=== PATIENT | male | born 1975 | race Caucasian/White ===

== ENCOUNTER 2018-05-31 14:14 | Emergency (ER) | payer MEDICARE, MEDICAID, SELFPAY ==
[2018-05-31] VITALS (11 sets, daily range): BP systolic 128–140; BP diastolic 83–98; PULSE 80–103; RESP 9–20; TEMP 36.5–36.7; O2SAT 98
--- NOTE | 2018-05-31 14:37 | DI.RPTCT_ITS ---
SYMPTOMS/DIAGNOSIS: DIZZINESS, SHORTNESS OF BREATH, H/O DVT AND PE CT SCAN OF THE CHEST: CT angiography was performed with multi slice acquisition and multi planar and 3D reconstruction. CT scan of the chest was performed according to the pulmonary embolus protocol. The comparison is 09/19/17. There is no evidence of a pulmonary embolus. The thoracic aorta is intact. No aneurysm or dilatation is seen. The heart size is within normal limits. No significant pericardial effusion is seen. No findings to suggest a right ventricular dysfunction are present. The lungs are clear. No pleural effusion or pneumothorax is identified. Note is made of fatty infiltration of the liver. Mild degenerative changes are seen in the spine. IMPRESSION: No acute abnormality. No findings to suggest an acute pulmonary embolus or thoracic aortic dissection or aneurysm. The findings were discussed with Thong Loya of the Emergency Department on the date of the examination.
[2018-05-31 14:58] LABS: BE (Venous) 2.4 mmol/L (-3-3); HCO3 (Venous) 28 mmol/L (22-28); O2 Sat (Venous) 96 % (70-80); TCO2 (Venous) 25 mmol/L (22-29); pCO2 (Venous) 48 mm/Hg (34-47); pH (Venous) 7.37 (7.32-7.43); pO2 (Venous) 77 mm/Hg (28-44)
[2018-05-31 15:01] LABS: Abs Immature Grans 0.01 k/cumm (0.0-0.09); Absolute Basophil Count 0.05 k/cumm (0.0-0.2); Absolute Eosinophil Count 0.14 k/cumm (0.0-0.7); Absolute Lymphocyte Count 1.93 k/cumm (1.2-3.4); Absolute Monocyte Count 0.54 k/cumm (0.11-0.7); Absolute Neutrophil Count 4.89 k/cumm (1.2-6.7); Basophils % 0.7; Eosinophils % 1.9; HGB 14.8 g/dL (13.5-17.5); Immature Grans % 0.1; Lymphocytes % 25.5; Mean Corp. HGB Concentration 34.4 g/dL (32.0-36.0); Mean Corpuscular Hemoglobin 29.4 pg (27.0-33.0); Mean Corpuscular Volume 85.3 fL (80-95); Mean Platelet Volume 10.5 fL (8.0-11.0); Monocytes % 7.1; Neutrophils % 64.7; Platelet Count 133 x1000/uL (130-400); RBC 5.04 m/cumm (4.50-6.00); RBC Distribution Width 12.9 % (11.8-14.1); White Blood Cell Count 7.56 k/cumm (4.4-10.8)
--- NOTE | 2018-05-31 15:12 | ED.GENADUL_ITS ---
Disposition Clinical Impression: DVT, recurrent, lower extremity, acute, Diabetes mellitus, Hyperglycemia Disposition: HOME Condition: Improving Instructions: Diabetic Hyperglycemia (ED), Deep Venous Thrombosis (ED) Additional Instructions: Return immediately to the emergency department for any new or worsening symptoms. These would include fever chills, severe shortness of breath difficulty breathing, chest pain, neurological changes, vision loss. Otherwise follow-up with your primary care provider next week, call their office first thing Sunday morning for arrangement of follow-up appointment. Also contact [facility] on Sunday for arrangement of outpatient vision testing for full dilated eye exam. Prescriptions: Apixaban [Eliquis] 10 mg PO BID 30 Days #74 tab Referrals: [facility] [Outside] - 1 week (Please call the office on Sunday for arrangement of outpatient vision testing) Uzma Campbell MD [Primary Care Provider] - 3 days (Call the office on Sunday for arrangement of follow-up appointment) Medical Decision Making - Lab Data Laboratory Tests 05/31/18 05/31/18 14:43 14:43 WBC 7.56 RBC 5.04 Hgb 14.8 Hct 43.0 MCV 85.3 MCH 29.4 MCHC 34.4 RDW 12.9 Plt Count 133 MPV 10.5 Immature Gran % 0.1 Neutrophils % 64.7 Lymphocytes % 25.5 Monocytes % 7.1 Eosinophils % 1.9 Basophils % 0.7 Absolute Neutrophils 4.89 Absolute Lymphocytes 1.93 Absolute Monocytes 0.54 Absolute Eosinophils 0.14 Absolute Basophils 0.05 VBG pH 7.37 VBG pCO2 48 H VBG pO2 77 H VBG HCO3 28 VBG Total CO2 25 VBG O2 Saturation 96 H VBG Base Excess 2.4 Results reviewed for labs ordered during visit: Yes - Radiology Data Radiology results: report reviewed - Medical Decision Making Patient presenting to the emergency department with chief complaint of dizziness and blurry vision. Patient states that he gets this way when his sugars are high. Patient states that he has been off of his medication for approximately the last month and has not been taking any of his diabetes medications because I feel worse when I take them and he also states that he has not been taking his Eliquis. Patient also complains of some shortness of breath with ambulation and right thigh pain and left calf pain. Physical exam is unremarkable but given patient's significant risk I do feel that labs and ultrasound imaging of lower extremities along with PE studies of the chest is warranted given his complaints and being off of his medications. Pending results patient was ordered 1 L IV fluids. Initial fingerstick was 425. After review of results patient is non-acidotic with glucose of 389 on labs no leukocytosis, no elevated troponin, A1c of 11.6, PE study negative for PE and clear lungs and DVT study shows bilateral DVTs. Given patient's noncompliance patient was agreeable to being admitted if necessary but would prefer to go home. I did consult with the hospitalist Dr. Fuller and he stated that given patient's situation he would recommend outpatient therapy with Eliquis to which is what patient was on previously and have patient return for any new or worsening symptoms. Patient does state that he would prefer to go home and not stay in the hospital. Given hospitalist recommendation on outpatient therapy I feel that this is appropriate. Given the patient has no ketones in urine A1c showing that his sugars typically run high and a repeat fingerstick of 313 with not even completion of IV fluids I feel that glucose should not be fully addressed at this point because patient is noncompliant and that this should be addressed on a primary care follow-up and slowly restarted on his medications given the patient was on insulin and metformin but has been off of them for a while as evidenced by A1c. Patient states his biggest barrier and why he quit his medications was because he felt his healthcare provider truly did not care about him and was not doing a appropriate job so he just stopped taking his medications. Clearly discussed with patient the significant risk of being noncompliant with his medical history. Outpatient plan to include restarting his Eliquis to immediately and for patient to receive remainder of IV fluids. Care management was contacted to help arrange outpatient appointment with a new primary care provider and a full dilated eye exam given patient's blurry vision but no ocular abnormalities noted on basic fundoscopy which is very limited. Patient encouraged to return for new or worsening symptoms which she seems reliable to do this. After discussion of diagnosis and plan of care with patient patient agreed and stated no further needs, questions, or concerns at this time. History of Present Illness - General Chief complaint: Dizzy/Sync Stated complaint: DIZZINESS Time Seen by Provider: 05/31/18 14:17 Source: patient, RN notes reviewed, old records reviewed Mode of arrival: ambulatory Limitations: no limitations - History of Present Illness Initial comments: Patient reports for the last 3 days he has had dizziness and slight blurry vision. He states that he has not been taking his diabetes medication or his blood thinner for the past 3-4 weeks. He states that this is how he feels when his sugar gets high but has not checked his sugar recently. He does state significant dry mouth and elevated thirst with frequency of urination. Patient denies any fever chills, chest pain, syncope but does state some shortness of breath on ambulation. Onset/Timin -: days(s) Location: lower extremity (right thigh, ) Severity scale (1-10): 5 Quality: aching Consistency: constant (left calf) Improves with: none Worsens with: none Treatments Prior to Arrival: none - Related Data Methadone Liquid [Dolophine Liquid] 110 mg PO DAILY 06/25/16 Blood Sugar Diagnostic [Test Strips] 1 each MC TID 30 Days #100 strip 09/21/17 IV Access 1 each IV DIRECTED device 09/21/17 Insulin Glargine [Lantus Solostar] 25 units SC HS #3 pen 09/21/17 Lancets 1 each MC TID 30 Days #100 each 09/21/17 Lisinopril 10 mg PO DAILY #30 tab 09/22/17 Metformin HCl 500 mg PO BID@0800,1700 #60 tab 09/22/17 Insulin Aspart [Novolog Flexpen] NS 02/14/18 Insulin Detemir [Levemir Flextouch] 40 u SC HS NS 02/14/18 Apixaban [Eliquis] 10 mg PO BID 30 Days #74 tab 05/31/18 Allergies Allergy/AdvReac Type Severity Reaction Status Date / Time rizatriptan benzoate Allergy Unverified 05/31/18 14:25 [From [facility]] fentanyl AdvReac Mild doesn't Unverified 05/31/18 14:25 like how he feels Review of Systems Constitutional: denies: chills, fever Eyes: vision change (Blurred vision) Respiratory: cough, shortness of breath Cardiovascular: denies: chest pain, palpitations, syncope Endocrine: see HPI, increased thirst, increased urine Gastrointestinal: denies: abdominal pain, nausea, vomiting, diarrhea Genitourinary: denies: dysuria, hematuria Musculoskeletal: as per HPI, myalgia Neurological: headache (Daily migraines with no change in headache type). denies: weakness, numbness, paresthesias, confusion Past Medical History - Past Medical History Medical history: diabetes, DVT, hypertension, PE Migraine ANDREA, chronic back pain, learning disability, steatohepatitis Surgical history: no surgical history - Social History Smoking status: current everyday smoker Alcohol use: none Drug use: prescription drug abuse Living Situation: lives with family General Exam - General Limitations: no limitations General appearance: alert, in no apparent distress - Head Head exam: Present: atraumatic - Eye Eye exam: Present: normal apperance, PERRL, EOMI. Absent: scleral icterus, conjunctival injection, nystagmus Pupils: Present: normal accommodation - ENT ENT exam: Present: mucous membranes dry, TM's normal bilaterally, normal external ear exam - Respiratory Respiratory exam: Present: normal lung sounds bilaterally. Absent: respiratory distress, wheezes, rales, rhonchi - Cardiovascular Cardiovascular Exam: Present: regular rate, normal rhythm, normal heart sounds. Absent: tachycardia, systolic murmur, diastolic murmur, rubs, clicks - GI/Abdominal GI/Abdominal exam: Present: soft, hypoactive bowel sounds, hernia (ventral easily reducible). Absent: tenderness, guarding, rebound, organomegaly, mass, bruit, pulsatile mass - Extremities Exam Extremities exam: Present: full ROM, normal capillary refill - Back Exam Back exam: Absent: CVA tenderness (R), CVA tenderness (L) - Neurological Exam Neurological exam: Present: alert, oriented X3, normal gait. Absent: altered - Skin Skin exam: Present: warm, dry, normal color. Absent: cyanosis, diaphoretic, pallor, mottled Course Vital Signs - 24 hr 05/31/18 05/31/18 14:19 14:50 Temperature 36.7 C Pulse 103 H Respiratory 18 18 Rate Blood Pressure 131/98 Pulse Oximetry 98
[2018-05-31 15:14] LABS: PTT Activated 25.2 sec (21.0-31.4); Prothrombin Time 9.5 sec (9.3-10.8)
[2018-05-31 15:17] LABS: ALT 143 U/L (12-78); AST 57 U/L (15-37); Albumin 3.4 g/dL (3.4-5.0); Alkaline Phosphatase 119 U/L (46-116); Anion Gap 10.1 mmol/L (3-11); BUN 15 mg/dL (7-18); Bilirubin, Total 0.4 mg/dL (0.2-1.0); CO2 26.9 mmol/L (21.0-32.0); CREATININE 1.01 mg/dL (0.70-1.30); Calcium 8.7 mg/dL (8.5-10.1); Chloride 98 mmol/L (98-107); Glucose 389 mg/dL (70-100); Magnesium 1.6 mg/dL (1.8-2.4); Potassium 4.1 mmol/L (3.5-5.1); Sodium 135 mmol/L (136-145); Total Protein 7.8 g/dL (6.4-8.2)
[2018-05-31 15:28] LABS: Bilirubin Negative (Negative); Blood Negative (Negative); Clarity Clear; Glucose 500 mg/dL (Negative); Ketones Negative (Negative); Leukocyte Esterase Negative (Negative); Nitrite Negative (Negative); Urobilinogen 0.2 EU/dL (Up TO 0.2); pH 5.5 (5-8)
[2018-05-31 15:39] LABS: Epithelial Cells Negative HPF (Negative); RBC Negative (0-2); WBC Negative HPF (0-5)
[2018-05-31 15:40] LABS: Bacteria Negative HPF (Negative); C & S Indicated? No; Crystals Negative HPF (Negative); Mucus Negative (Negative); Other Cells Rare Renal (Negative)
[2018-05-31] MEDS: Omnipaque 350 MG/ML 100 ML BTL IJ (15:46)
--- NOTE | 2018-05-31 15:59 | DI.REPORT_ITS ---
SYMPTOMS/DIAGNOSIS: RT INNER THIGH PAIN, LT CALF PAIN, HX DVT AND PE RIGHT LOWER EXTREMITY ULTRASOUND: The distal femoral vein as well as popliteal vein are partially compressible and show partially occluding thrombus. One of the posterior tibial veins shows thrombus distally. The common femoral vein and saphenous vein are free of thrombus. IMPRESSION: Partially occluding thrombus in the distal femoral vein, popliteal vein and one of the posterior tibial veins. LEFT LOWER EXTREMITY ULTRASOUND: The deep venous system is freely compressible. No thrombus is visible. The doppler venous wave form augments normally. A santana's cyst is seen measuring 3.4 x 1.9 x 1.9 cm. IMPRESSION: Santana's cyst. No evidence of DVT.
[2018-05-31 17:16] LABS: Troponin I < 0.02 ng/mL (0.00-0.06)
[2018-05-31 17:26] LABS: Hemoglobin A1C 11.6 % (4.5-6.2)
[2018-05-31] MEDS: Normal Saline 1,000 ML 1000 ML IV (17:30)
--- NOTE | 2018-05-31 17:33 | DI.VRAD_ITS ---
EXAM: US Duplex Bilateral Lower Extremity Veins CLINICAL HISTORY: 42 years old, male; Pain; Leg, lower; Bilateral TECHNIQUE: Real-time duplex ultrasound scan of the bilateral lower extremity veins integrating B-mode two-dimensional vascular structure, Doppler spectral analysis, color flow Doppler imaging and compression. COMPARISON: No relevant prior studies available. FINDINGS: Right deep veins: Nonoccluding thrombus in the distal right superficial femoral vein. Nonoccluding thrombus in the right popliteal vein. Thrombus in the one of the distal right posterior tibial veins. Right superficial veins: Unremarkable. No thrombus in the visualized right great saphenous vein. Left deep veins: Nonoccluding thrombus in the distal left superficial femoral vein. Left superficial veins: Unremarkable. No thrombus in the visualized left great saphenous vein. Soft tissues: Santana's cyst on the left 1.9 x 1.9 x 3.4 cm IMPRESSION: 1. Nonoccluding thrombus in the distal right superficial femoral vein. 2. Nonoccluding thrombus in the right popliteal vein. 3. Thrombus in the one of the distal right posterior tibial veins. 4. Nonoccluding thrombus in the distal left superficial femoral vein. Dictated and Authenticated by: Aga Summers MD. Ordering:JORDON AGUILAR MD
[2018-05-31] MEDS: Apixaban 5 MG TAB 10 MG PO (17:58)
--- NOTE | 2018-05-31 18:47 | PDOC.ERCMPRO ---
Care Management Progress Note 05/31/18- Pt seen today for Dizziness and blurred vision by Pj Oden NP.Pt has poor control od diabetes and has stopped taking his meds to control it. Also, has DVT's in lower extremities. Pt states he will see any at his PCP[facility], [facility] except for NADINE King. Request for a f/u by Sunday or Sunday faxed and a f/u with [facility] within a week faxed, as well.
--- NOTE | 2018-05-31 18:56 | CMPROGNOTE_ITS ---
Care Management Progress Note 05/31/18- Pt seen today for Dizziness and blurred vision by Pj Oden NP.Pt has poor control od diabetes and has stopped taking his meds to control it. Also, has DVT's in lower extremities. Pt states he will see any at his PCP's, [facility] except for NADINE King. Request for a f/u by Sunday or Sunday faxed and a f/u with [facility] within a week faxed, as well.
== END 2018-05-31 22:35 | disposition home or self-care (01) ==
PROVIDERS: Nurse Practitioner Family; Emergency Provider Physician Assistant; PCP Family Medicine
DX: I82.423 Acute embolism and thrombosis of iliac vein, bilateral (principal); E11.65 Type 2 diabetes mellitus with hyperglycemia; H53.8 Other visual disturbances; R06.02 Shortness of breath; Z91.14 Patient's other noncompliance with medication regimen; Z79.01 Long term (current) use of anticoagulants; Z79.4 Long term (current) use of insulin
CPT/HCPCS: 71275; 93005; 93970; 96360; 96361; 99284; 99285; 36415; 36416; 80053; 82805; 82962; 81003; 81015; 83036; 83735; 84484; 85025; 85610; 85730; 93010; J3490

== ENCOUNTER 2019-02-13 15:27 | Outpatient (REF) | payer MEDICARE, SELFPAY ==
[2019-02-13 21:53] LABS: ALT 100 U/L (12-78); AST 47 U/L (15-37); Albumin 3.9 g/dL (3.4-5.0); Alkaline Phosphatase 114 U/L (46-116); Anion Gap 9.7 mmol/L (3-11); BUN 17 mg/dL (7-18); Bilirubin, Total 0.3 mg/dL (0.2-1.0); CO2 26.3 mmol/L (21.0-32.0); Calcium 9.3 mg/dL (8.5-10.1); Chloride 99 mmol/L (98-107); Glucose 309 mg/dL (70-100); Potassium 4.6 mmol/L (3.5-5.1); Sodium 135 mmol/L (136-145); Total Protein 7.7 g/dL (6.4-8.2)
[2019-02-17 11:12] LABS: Hepatitis C Ab w Rflx HCV PCR Negative (NEGAT)
== END 2019-02-13 15:47 ==
LOC: NCHCN 15:27
PROVIDERS: PCP Family Medicine; Visit Provider Family Medicine
DX: R10.9 Unspecified abdominal pain (principal); R79.89 Other specified abnormal findings of blood chemistry; Z11.59 Encounter for screening for other viral diseases
CPT/HCPCS: 80053; 86803

== ENCOUNTER 2019-03-13 15:30 | Outpatient (REF) | payer MEDICARE, MEDICAID, SELFPAY | END 2019-03-13 15:50 | LOC: NCHCN 15:30 | PROVIDERS: PCP Family Medicine; Visit Provider Family Medicine | DX: L02.92 Furuncle, unspecified (principal) | CPT/HCPCS: 87077; 87070; 87186; 87205 ==

== ENCOUNTER 2019-05-08 12:57 | Outpatient (REF) | payer MEDICARE, MEDICAID, SELFPAY ==
[2019-05-08 21:45] LABS: HGB 15.5 g/dL (13.5-17.5); Mean Corp. HGB Concentration 33.7 g/dL (32.0-36.0); Mean Platelet Volume 11.1 fL (8.0-11.0); Platelet Count 165 x1000/uL (130-400); RBC 5.35 m/cumm (4.50-6.00); White Blood Cell Count 8.72 k/cumm (4.4-10.8)
[2019-05-08 22:16] LABS: ALT 108 U/L (12-78); AST 51 U/L (15-37); Albumin 3.7 g/dL (3.4-5.0); Alkaline Phosphatase 106 U/L (46-116); Anion Gap 10.9 mmol/L (3-11); BUN 17 mg/dL (7-18); Bilirubin, Total 0.4 mg/dL (0.2-1.0); CO2 24.1 mmol/L (21.0-32.0); CREATININE 0.94 mg/dL (0.70-1.30); Calcium 8.9 mg/dL (8.5-10.1); Chloride 100 mmol/L (98-107); Glucose 292 mg/dL (70-100); Potassium 4.7 mmol/L (3.5-5.1); Sodium 135 mmol/L (136-145); TSH (W/Ref FT4) 0.78 uIU/mL (0.358-3.74); Total Protein 7.5 g/dL (6.4-8.2)
[2019-05-08 22:39] LABS: C-Reactive Protein 0.86 mg/dL (0.0-0.3); Creatine Kinase 100 U/L (39-308)
[2019-05-08 23:45] LABS: ESR 16 mm/hr (0-15)
[2019-05-12 11:44] LABS: Lyme Ab w Rflx to Lyme Confirm Negative
== END 2019-05-08 13:17 ==
LOC: NCHCN 12:57
PROVIDERS: PCP Family Medicine; Visit Provider Family Medicine
DX: E11.65 Type 2 diabetes mellitus with hyperglycemia (principal); R53.1 Weakness; R13.10 Dysphagia, unspecified; K59.00 Constipation, unspecified; K76.0 Fatty (change of) liver, not elsewhere classified
CPT/HCPCS: 80053; 82550; 85027; 85652; 84443; 86140; 86618

== ENCOUNTER 2019-05-10 10:10 | Emergency (ER) | payer MEDICARE, MEDICAID, SELFPAY ==
[2019-05-10] VITALS (19 sets, daily range): BP systolic 114–143; BP diastolic 65–90; PULSE 58–96; RESP 9–20; TEMP 36.6–36.7; O2SAT 92–95
--- NOTE | 2019-05-10 10:41 | ED.GENADUL_ITS ---
Discharge Plan Disposition Patient Disposition: HOME Condition: Stable Discharge Details Chief Complaint: SOB Clinical Impression: Chest pain Primary Care Provider: Uzma Campbell V ED Provider: Terrance Simpson Home Meds and New Rx's Prescriptions: No Action metformin 500 MG tablet 500 mg PO BID@0800,1700 Qty: 60 RF: 2 lisinopril 10 MG tablet 10 mg PO DAILY Qty: 30 RF: 2 insulin aspart U-100 [Novolog Flexpen U-100 Insulin] 100 UNIT/1 ML insulin pen RF: 0 insulin detemir U-100 [Levemir FlexTouch U-100 Insuln] 100 UNIT/1 ML insulin pen 40 u Sub-Q HS RF: 0 methadone 10 MG/ML concentrate 110 mg PO DAILY RF: 0 Lantus Solostar U-100 Insulin 300 UNITS/3 ML insulin pen 25 units Sub-Q HS Qty: 3 RF: 3 IV Access 1 EACH Device 1 ea IV DIRECTED RF: 0 (DME) lancets 1 EACH misc 1 ea Miscellaneous TID 30 Days Qty: 100 RF: 3 (DME) blood sugar diagnostic [Blood Glucose Test] 1 EACH strip 1 ea Miscellaneous TID 30 Days Qty: 100 RF: 3 Eliquis 5 MG tablet 10 mg PO BID 30 Days Qty: 74 RF: 0 Discharge Instructions Instructions: Chest Pain (ED) Additional Instructions: Please follow-up with your primary care doctor on Sunday for further evaluation of your chest pain while we did not identify a cardiac cause or pulmonary embolism today you still need further work-up for this pain - in the meantime please take ibuprofen and Tylenol as needed for symptom relief and return to the emergency department immediately for increasing pain, shortness of breath sweating or other concern Medical Decision Making 43-year-old male past medical history of diabetes pulmonary embolus hypertension presents with left-sided chest pain nonischemic EKG troponin negative x2 1 and 3-hour testing and CT angios thorax negative for pulmonary embolus. Patient resting comfortably pain is improved we will discharge patient with primary care follow-up in 48 hours to discuss cardiology referral and stress testing. Patient agrees to return for increasing pain diaphoresis or new concern. ECG: Sinus rhythm 89 normal axis no ectopy normal intervals no STEMI Lab Data Lab results reviewed: Yes I reviewed the patient's lab results. ECG Data Attestation: I personally reviewed and interpreted this ECG (s) as follows: HPI 43-year-old male past medical history of 2 unprovoked pulmonary embolus is chronic back pain on methadone presents with 24 hours of left chest wall pain with shortness of breath not dissimilar from his other pulmonary emboli patient on Eliquis and states compliant no missed pills in the last month. Pain is sharp left chest nonradiating back pain is constant and unchanged long-standing nothing makes the chest pain better or worse no pain with chest palpation no change with inspiration.no fever chills nausea vomiting loss of consciousness or trauma. General Date/Time Provider Initiated Documentation: 05/10/19 10:15 . Related Data Home Medications Medication Instructions Recorded Confirmed methadone 110 mg PO DAILY 06/25/16 05/10/19 IV Access 1 ea IV DIRECTED device 09/21/17 Lantus Solostar U-100 Insulin 25 units SUB-Q HS #3 pen 09/21/17 blood sugar diagnostic [Blood #100 strip 09/21/17 Glucose Test] lancets #100 ea 09/21/17 lisinopril 10 mg PO DAILY #30 tab 09/22/17 05/10/19 metformin 500 mg PO BID@0800,1700 #60 tab 09/22/17 05/10/19 insulin aspart U-100 [Novolog NS 02/14/18 Flexpen] insulin detemir U-100 [Levemir 40 u SUB-Q HS NS 02/14/18 Flextouch] Eliquis 10 mg PO BID 30 Days #74 tab 05/31/18 05/10/19 Previous Rx's Medication Instructions Recorded IV Access 1 ea IV DIRECTED device 09/21/17 Lantus Solostar U-100 Insulin 25 units SUB-Q HS #3 pen 09/21/17 blood sugar diagnostic [Blood #100 strip 09/21/17 Glucose Test] lancets #100 ea 09/21/17 lisinopril 10 mg PO DAILY #30 tab 09/22/17 metformin 500 mg PO BID@0800,1700 #60 tab 09/22/17 Eliquis 10 mg PO BID 30 Days #74 tab 05/31/18 Allergies Allergy/AdvReac Type Severity Reaction Status Date / Time rizatriptan benzoate Allergy Unverified 05/10/19 10:18 [From [facility]] fentanyl AdvReac Mild doesn't Unverified 05/10/19 10:18 like how he feels General Stated Complaint: SOB ANA PAULA: 2 Review of Systems Review of Systems All systems reviewed & are unremarkable except as noted in HPI and below [facility] Medical History (Updated 09/20/17 @ 15:58 by Jn Pisano) Chronic back pain Chronic headaches Chronic neck pain Diastasis recti DM (diabetes mellitus), type 2, uncontrolled DVT (deep venous thrombosis) Episodic drug abuse Hyperlipidemia Hypertension Learning disability Left inguinal hernia Nonalcoholic fatty liver disease Pulmonary embolism on right Social History Smoking/Tobacco Use Status: Current every day Alcohol Intake: former Drug use: Occasionally Substance use type: marijuana Do you feel safe in your relationship?: Yes Exam Narrative Exam Narrative: Pulse oximetry reviewed by me and is normal: Constitutional: in no acute distress. well appearing. oriented to person, place, and time. Eyes: conjunctivae are normal. Pupils are equal, round, and reactive to light. No scleral icterus. extraocular muscles are intact Ears/Nose/Mouth/Throat: muscousal membranes are moist. Musculoskeletal: neck is supple. normal range of motion in all extremities. No lower extremity edema Cardiovascular: Normal rate and rhythm. No lower extremity edema regular rate and rhythm Respiratory: effort is normal. no stridor or respiratory distress lungs clear to auscultation. GastrointestinaI: abdomen soft, +BS, nontender, -rebound, -guarding. Neurological: alert and oriented to person, place, and time. normal strength, no tremor. Skin: Skin is warm and dry. not diaphoretic. Distal perfusion intact, warm extremities, cap refill < 2 seconds. Hem/Lymph/Imm: No cervical LAD, no goiter, no conjunctival pallor Psych: normal mood and affect. behavior is normal Triage and nurse notes reviewed. Course Vital Signs Temperature 36.6 C 05/10/19 10:14 Pulse 96 H 05/10/19 10:14 Respiratory Rate 05/10/19 10:14 Blood Pressure 118/65 05/10/19 10:14 Pulse Oximetry 93 L 05/10/19 10:14 Temperature 36.6 C 05/10/19 10:14 Temperature Source Skin 05/10/19 10:14 Pulse 96 H 05/10/19 10:14 Respiratory Rate 05/10/19 10:14 Blood Pressure 118/65 05/10/19 10:14 Blood Pressure Position Sitting 05/10/19 10:14 Pulse Oximetry 93 L 05/10/19 10:14 Oxygen Delivery Method Room Air 05/10/19 10:14 Oxygen Flow Rate 0 05/10/19 10:14 Pain Level 4 05/10/19 10:14
[2019-05-10] MEDS: Omnipaque 350 MG/ML 100 ML BTL IJ (11:06)
--- NOTE | 2019-05-10 11:08 | DI.CT_ITS ---
SYMPTOM/DIAGNOSIS: SOB CT ANGIOGRAPHY CHEST: CT angiography was performed with multi slice acquisition and multi planar and 3D reconstruction. Routine examination. Comparison 06/25/16 There is no evidence of a pulmonary embolus. The thoracic aorta is normal caliber. No aneurysm or dissection is seen. Heart size is within normal limits. No significant pericardial effusion seen. No evidence of right ventricular dysfunction is present. No evidence of thoracic adenopathy, pleural effusion of pneumothorax is identified. No pulmonary infiltrates are seen. There are stable pulmonary nodules again noted. The tracheobronchial tree is unremarkable. Upper abdominal images show hepatic steatosis. No acute osseous abnormalities identified. IMPRESSION: No evidence of an acute pulmonary embolus, thoracic aortic dissection or aneurysm.
[2019-05-10 11:12] LABS: Abs Immature Grans 0.02 k/cumm (0.0-0.09); Absolute Basophil Count 0.03 k/cumm (0.0-0.2); Absolute Eosinophil Count 0.14 k/cumm (0.0-0.7); Absolute Lymphocyte Count 1.95 k/cumm (1.2-3.4); Absolute Monocyte Count 0.49 k/cumm (0.11-0.7); Absolute Neutrophil Count 3.36 k/cumm (1.2-6.7); Basophils % 0.5; Eosinophils % 2.3; HCT 43.6 % (40.0-50.0); HGB 14.7 g/dL (13.5-17.5); Immature Grans % 0.3; Lymphocytes % 32.6; Mean Corp. HGB Concentration 33.7 g/dL (32.0-36.0); Mean Corpuscular Hemoglobin 29.3 pg (27.0-33.0); Mean Platelet Volume 10.9 fL (8.0-11.0); Monocytes % 8.2; Neutrophils % 56.1; Platelet Count 135 x1000/uL (130-400); RBC 5.01 m/cumm (4.50-6.00); RBC Distribution Width 13.3 % (11.8-14.1); White Blood Cell Count 5.99 k/cumm (4.4-10.8)
[2019-05-10 11:28] LABS: ALT 96 U/L (12-78); AST 28 U/L (15-37); Albumin 3.4 g/dL (3.4-5.0); Alkaline Phosphatase 95 U/L (46-116); Anion Gap 8.4 mmol/L (3-11); BUN 20 mg/dL (7-18); Bilirubin, Total 0.3 mg/dL (0.2-1.0); CO2 25.6 mmol/L (21.0-32.0); CREATININE 0.96 mg/dL (0.70-1.30); Calcium 9.1 mg/dL (8.5-10.1); Chloride 101 mmol/L (98-107); Glucose 389 mg/dL (70-100); Magnesium 1.8 mg/dL (1.8-2.4); Potassium 4.6 mmol/L (3.5-5.1); Sodium 135 mmol/L (136-145); Total Protein 7.3 g/dL (6.4-8.2)
[2019-05-10 11:29] LABS: Troponin I < 0.05 ng/mL (0.00-0.06)
[2019-05-10 11:44] LABS: PTT Activated 25.5 sec (21.0-31.4); Prothrombin Time 9.9 sec (9.3-11.0)
--- NOTE | 2019-05-10 12:04 | DI.VRAD_ITS ---
EXAM: CT Angiography Chest With Contrast EXAM DATE/TIME: 05/10/2019 10:42 AM CLINICAL HISTORY: 43 years old, male; Shortness of breath; Patient HX: SOB and increased chest pain yesterday, HX of pe, and blood clots in left leg, last one was 2 years ago. TECHNIQUE: Imaging protocol: Axial computed tomographic angiography images of the chest with intravenous contrast using CT angiography protocol. Coronal and sagittal reformatted images were created and reviewed. 3D rendering: MIP reconstructed images were created and reviewed. Radiation optimization: All CT scans at this facility use at least one of these dose optimization techniques: automated exposure control; mA and/or kV adjustment per patient size (includes targeted exams where dose is matched to clinical indication); or iterative reconstruction. Contrast material: OMNIPAQUE 350; Contrast volume: 100 ml; Contrast route: IV; COMPARISON: CT CHEST FOR PULMONARY EMBOLUS 07/29/2018 15:31 FINDINGS: Pulmonary arteries: There is no evidence for pulmonary embolus. There is no evidence for pulmonary embolus. Aorta: Unremarkable. No aortic aneurysm. No aortic dissection. Lungs: Again noted numerous noncalcified 2-3 mm lung nodules. Pleural space: Unremarkable. No pneumothorax. No pleural effusion. Heart: Unremarkable. No cardiomegaly. No pericardial effusion. Liver: Hepatic steatosis. Lymph nodes: Unremarkable. No enlarged lymph nodes. Bones/joints: Unremarkable. No acute fracture. Soft tissues: Unremarkable. IMPRESSION: No evidence for pulmonary embolus. Dictated and Authenticated by: Natacha Cannon MD. Ordering:SOTERO Carlos MD
[2019-05-10 14:17] LABS: Troponin I < 0.05 ng/mL (0.00-0.06)
== END 2019-05-10 15:01 | disposition home or self-care (01) ==
PROVIDERS: Emergency Provider Emergency Medicine; PCP Family Medicine
DX: R07.9 Chest pain, unspecified (principal); I26.99 Other pulmonary embolism without acute cor pulmonale; Z79.01 Long term (current) use of anticoagulants; I10 Essential (primary) hypertension; E11.9 Type 2 diabetes mellitus without complications; Z79.4 Long term (current) use of insulin
CPT/HCPCS: 36415; 71275; 80053; 93005; 99285; 83735; 84484; 85025; 85610; 85730; 93010; J3490

== ENCOUNTER 2019-05-21 00:51 | Outpatient (CLI) | payer MEDICARE, MEDICAID, SELFPAY ==
--- NOTE | 2019-05-21 09:37 | DI.RAD_ITS ---
SYMPTOMS/DIAGNOSIS: DYSPHAGIA, R13.10, UNABLE TO DO BARIUM SWALLOW DUE TO VOMITING PA AND LATERAL CHEST: The heart is normal in size. The lungs are clear. The mediastinal structures and pleura appear intact. IMPRESSION: Normal chest. SOFT TISSUE LATERAL OF THE NECK: No soft tissue abnormality is seen. Note is made of disc narrowing and degenerative bony changes at multiple levels. The patient vomited after imbibing barium and the study was discontinued. This patient could be rescheduled when clinically appropriate.
== END 2019-05-21 01:11 ==
PROVIDERS: PCP Family Medicine; Visit Provider Family Medicine
DX: R13.10 Dysphagia, unspecified (principal); R11.10 Vomiting, unspecified
CPT/HCPCS: 70360; 71046

== ENCOUNTER 2019-06-25 00:37 | Outpatient (CLI) | payer MEDICARE, MEDICAID, SELFPAY ==
--- NOTE | 2019-06-25 09:20 | DI.MRI_ITS ---
SYMPTOMS/DIAGNOSIS: CHRONIC BACK PAIN, M54.89 MRI OF THE LUMBAR SPINE: There is partial sacralization of L5. There is moderate loss of disc height at T1-12 and some posterior disc bulging, but no significant central canal stenosis or neural foraminal narrowing. The L1-2 and L2-3 levels are unremarkable. At L3-4, there is moderate disc bulging, which is slightly eccentric toward the left. There are mild facet degenerative changes and mild ligamentous hypertrophy causing mild central canal stenosis. There is also bilateral neural foraminal narrowing. At L4-5, there is moderate to severe loss of disc height as well as broad-based disc bulging and endplate osteophytes. There are facet degenerative changes, which combine with the disc bulging to create mild central canal stenosis and mild left and moderate right neural foraminal narrowing. The L5-S1 level is unremarkable. A hemangioma is seen in the S1 vertebral body. The conus medullaris appears intact. The aorta is normal in diameter. IMPRESSION: Degenerative disc changes greatest at L3-4 and L4-5 causing mild central canal stenosis and neural foraminal narrowing.
== END 2019-06-25 00:57 ==
PROVIDERS: PCP Family Medicine; Visit Provider Family Medicine
DX: M54.5 Low back pain (principal); G89.29 Other chronic pain; M51.36 Other intervertebral disc degeneration, lumbar region; M48.061 Spinal stenosis, lumbar region without neurogenic claudication
CPT/HCPCS: 72148

== ENCOUNTER 2019-06-26 10:15 | Outpatient (REF) | payer MEDICARE, SELFPAY ==
[2019-06-26 19:55] LABS: ALT 76 U/L (16-63); AST 27 U/L (15-37); Albumin 3.8 g/dL (3.4-5.0); Alkaline Phosphatase 90 U/L (46-116); Anion Gap 9.8 mmol/L (3-11); BUN 18 mg/dL (7-18); Bilirubin, Total 0.3 mg/dL (0.2-1.0); C-Reactive Protein 0.92 mg/dL (0.0-0.3); CO2 27.2 mmol/L (21.0-32.0); CREATININE 0.97 mg/dL (0.70-1.30); Calcium 9.1 mg/dL (8.5-10.1); Chloride 100 mmol/L (98-107); Creatine Kinase 90 U/L (39-308); Glucose 394 mg/dL (70-100); Potassium 4.7 mmol/L (3.5-5.1); Sodium 137 mmol/L (136-145); Total Protein 7.6 g/dL (6.4-8.2)
[2019-06-26 20:05] LABS: ESR 16 mm/hr (0-15)
== END 2019-06-26 10:35 ==
LOC: NCHCN 10:15
PROVIDERS: PCP Family Medicine; Visit Provider Family Medicine
DX: R07.89 Other chest pain (principal); R79.89 Other specified abnormal findings of blood chemistry; I10 Essential (primary) hypertension
CPT/HCPCS: 80053; 82550; 85652; 86140

== ENCOUNTER → 2020-02-27 13:32 | Outpatient (BNVA) | payer MEDICARE, MEDICAID, SELFPAY | PROVIDERS: PCP Family Medicine; Referring Provider Family Medicine; Visit Provider Surgery | DX: R10.33 Periumbilical pain (principal); E11.8 Type 2 diabetes mellitus with unspecified complications; I10 Essential (primary) hypertension | CPT/HCPCS: 99202; 99214 ==

== ENCOUNTER 2021-01-28 16:36 | Outpatient (REF) | payer MEDICARE, SELFPAY ==
[2021-01-28 15:09] LABS: HCT 42.6 % (40.0-50.0); HGB 14.5 g/dL (13.5-17.5); MCH 29.2 pg (27.0-33.0); MCV 85.9 fL (80-95); MPV 10.7 fL (8.0-11.0); Platelet Count 187 10^3/uL (130-400); RBC 4.96 10^6/uL (4.36-5.78); RDW 12.6 % (11.8-14.1); RDW-SD 39.5 fL; WBC 10.82 10^3/uL (4.4-10.8)
[2021-01-28 15:33] LABS: ALT 36 U/L (16-63); AST 15 U/L (15-37); Albumin 3.6 g/dL (3.4-5.0); Alkaline Phosphatase 82 U/L (46-116); Anion Gap 10.1 mmol/L (3-11); BUN 20 mg/dL (7-18); Bilirubin, Total 0.4 mg/dL (0.2-1.0); CO2 25.9 mmol/L (21.0-32.0); Calculated LDL 101 mg/dL (<100); Chloride 101 mmol/L (98-107); Cholesterol 155 mg/dL (<200); Glucose 214 mg/dL (74-106); HDL Cholesterol 36 mg/dL (40-60); Potassium 4.3 mmol/L (3.5-5.1); Sodium 137 mmol/L (136-145); Total Protein 7.2 g/dL (6.4-8.2); Triglyceride 92 mg/dL (<150)
[2021-01-31 16:21] LABS: HLA-B27 Result Negative
== END 2021-01-28 16:37 | disposition home or self-care (01) ==
LOC: NCHCN 16:36
PROVIDERS: PCP Family Medicine; Visit Provider Family Medicine
DX: I10 Essential (primary) hypertension (principal); E78.5 Hyperlipidemia, unspecified; E11.65 Type 2 diabetes mellitus with hyperglycemia; K76.0 Fatty (change of) liver, not elsewhere classified; M54.2 Cervicalgia; M54.89 Other dorsalgia
CPT/HCPCS: 80053; 80061; 85027; 86812

== ENCOUNTER 2022-02-27 23:02 | Emergency (ER) | payer MEDICARE, MEDICAID, SELFPAY ==
[2022-02-27] VITALS (28 sets, daily range): BP systolic 175–186; BP diastolic 98–111; PULSE 115–130; RESP 9–22; TEMP 37; O2SAT 96–99
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
[2022-02-27] MEDS: Lidocaine/Epinephri/Tetracaine Topical Gel 3 ML TP (23:30)
[2022-02-27] MEDS: Lidocaine/Epinephri/Tetracaine Topical Gel 3 ML (23:30)
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
[2022-02-27 23:33] LABS: Abs Immature Grans 0.09 10^3/uL (0.0-0.06); Absolute Eosinophil Count 0.03 10^3/uL (0.0-0.7); Absolute Lymphocyte Count 1.41 10^3/uL (1.2-3.4); Basophils % 0.6; Eosinophils % 0.2; HCT 41.1 % (40.0-50.0); HGB 13.5 g/dL (13.5-17.5); Immature Grans % 0.5; Lymphocytes % 8.3; MCH 29.3 pg (27.0-33.0); MCHC 32.8 % (32.0-36.0); MCV 89 fL (80-95); MPV 10.2 fL (8.0-11.0); Monocytes % 5.8; Neutrophils % 84.6; Platelet Count 201 10^3/uL (130-400); RBC 4.61 10^6/uL (4.36-5.78); RDW 13.5 % (11.8-14.1); RDW-SD 44.1 fL; WBC 16.94 10^3/uL (4.4-10.8)
[2022-02-27 23:34] LABS: Absolute Monocyte Count 0.98 10^3/uL (0.1-0.8); Absolute Neutrophil Count 14.33 10^3/uL (1.2-6.7)
[2022-02-27] MEDS: Ondansetron 4 MG/2 ML VIAL IVP (23:39)
[2022-02-27] MEDS: MORPHine 4 MG/ML SYR IVP (23:39)
[2022-02-27] MEDS: Normal Saline 1,000 ML 1000 ML IV (23:39)
[2022-02-27 23:45] LABS: ALT 43 U/L (16-63); AST 25 U/L (15-37); Albumin 4.2 g/dL (3.4-5.0); Alkaline Phosphatase 85 U/L (46-116); Anion Gap 8.7 mmol/L (3-11); BUN 24 mg/dL (7-18); Bilirubin, Total 0.3 mg/dL (0.2-1.0); CO2 25.3 mmol/L (21.0-32.0); CREATININE 1.1 mg/dL (0.70-1.30); Calcium 9.4 mg/dL (8.5-10.1); Chloride 104 mmol/L (98-107); Glucose 246 mg/dL (74-106); Potassium 4.2 mmol/L (3.5-5.1); Sodium 138 mmol/L (136-145)
[2022-02-27 23:47] LABS: PTT Activated 23.2 sec (21.0-27.5); Prothrombin Time 10.5 sec (9.3-11.0)
[2022-02-28] VITALS (42 sets, daily range): BP systolic 177–194; BP diastolic 88–97; PULSE 104–111; RESP 8–28; O2SAT 97–99
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
[2022-02-28] MEDS: Ketorolac 15 MG/ML VIAL IVP (01:03)
[2022-02-28] MEDS: oxyCODONE 5 mg/Acetaminophen 325 mg TAB 1 TAB PO (01:03)
--- NOTE | 2022-02-28 09:02 | NUR.NOTE ---
Nursing Note: Faxed to [facility] the provider note. The CT's are being sent electronically. Daina Blackburn
== END 2022-02-28 02:08 | disposition home or self-care (01) ==
PROVIDERS: Emergency Provider Emergency Medicine; PCP Family Medicine
DX: S02.31XA Fracture of orbital floor, right side, initial encounter for closed fracture (principal); S02.831A Fracture of medial orbital wall, right side, initial encounter for closed fracture; S02.40EA Zygomatic fracture, right side, initial encounter for closed fracture; S02.40CA Maxillary fracture, right side, initial encounter for closed fracture; S01.81XA Laceration without foreign body of other part of head, initial encounter; S01.311A Laceration without foreign body of right ear, initial encounter; R07.89 Other chest pain; Y00.XXXA Assault by blunt object, initial encounter; M54.6 Pain in thoracic spine
CPT/HCPCS: 12013; 36415; 71250; 80053; 90471; 96361; 96374; 96375; 99285; 70450; 70486; 72125; 85025; 85610; 85730; J1885; J2270; J2405

== ENCOUNTER 2022-02-28 10:47 | Emergency (ER) | payer MEDICARE, MEDICAID, SELFPAY ==
[2022-02-28 10:55] VITALS: BP 169/89; PULSE 102; RESP 16; TEMP 36.4; O2SAT 97
--- NOTE | 2022-02-28 11:15 | DI.RAD_ITS ---
Exam(s) XR RIBS LT W PA LAT CHEST EXAM: XR RIBS LT W PA LAT CHEST CLINICAL HISTORY: left rib pain, worsening pain and SOB trauma. TECHNIQUE: 2D digital imaging was performed. COMPARISON: CR XR CHEST 2V PA LATERAL from 05/21/2019 FINDINGS: LEFT RIBS-FOUR VIEWS: There is no evidence of left rib fracture. No pneumothorax. No rib lesions. CHEST-TWO VIEWS: Heart size normal. Mediastinum not widened. No infiltrates nor pleural effusions. No pneumothorax. IMPRESSION: No left rib fracture seen. Lungs are clear. No pneumothorax DATA REPOSITORY: RADIATION DOSE DELIVERED:
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
[2022-02-28 12:41] VITALS: BP 132/74; PULSE 82; RESP 16; TEMP 36.8; O2SAT 97
== END 2022-02-28 12:45 | disposition home or self-care (01) ==
PROVIDERS: Emergency Provider Physician Assistant; PCP Family Medicine
DX: S20.212A Contusion of left front wall of thorax, initial encounter (principal); Y00.XXXA Assault by blunt object, initial encounter; G89.11 Acute pain due to trauma; R06.02 Shortness of breath
CPT/HCPCS: 99283; 71046; 71100; J1885

== ENCOUNTER 2022-04-26 14:46 | Emergency (ER) | payer MEDICARE, MEDICAID, SELFPAY ==
[2022-04-26 14:53] VITALS: BP 157/82; PULSE 88; RESP 17; TEMP 36.7; O2SAT 96
[2022-04-26] MEDS: CLINDAMYCIN 600 MG/50 ML BAG 100 MG IVPB (16:18)
[2022-04-26 16:42] LABS: Abs Immature Grans 0.03 10^3/uL (0.0-0.06); Absolute Basophil Count 0.07 10^3/uL (0.0-0.2); Absolute Eosinophil Count 0.25 10^3/uL (0.0-0.7); Absolute Monocyte Count 0.74 10^3/uL (0.1-0.8); Absolute Neutrophil Count 6.42 10^3/uL (1.2-6.7); Basophils % 0.7; Eosinophils % 2.6; HCT 37.3 % (40.0-50.0); HGB 12.2 g/dL (13.5-17.5); Immature Grans % 0.3; Lymphocytes % 21.9; MCH 28.7 pg (27.0-33.0); MCHC 32.7 % (32.0-36.0); MCV 88 fL (80-95); MPV 10.3 fL (8.0-11.0); Monocytes % 7.7; Neutrophils % 66.8; Platelet Count 218 10^3/uL (130-400); RBC 4.25 10^6/uL (4.36-5.78); RDW 12.8 % (11.8-14.1); WBC 9.61 10^3/uL (4.4-10.8)
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
[2022-04-26 17:07] LABS: ALT 28 U/L (16-63); AST 21 U/L (15-37); Albumin 3.9 g/dL (3.4-5.0); Alkaline Phosphatase 87 U/L (46-116); Anion Gap 6.8 mmol/L (3-11); BUN 25 mg/dL (7-18); Bilirubin, Total 0.1 mg/dL (0.2-1.0); CO2 28.2 mmol/L (21.0-32.0); CREATININE 0.9 mg/dL (0.70-1.30); Calcium 9.2 mg/dL (8.5-10.1); Chloride 103 mmol/L (98-107); Glucose 151 mg/dL (74-106); Potassium 4.2 mmol/L (3.5-5.1); Sodium 138 mmol/L (136-145); Total Protein 7.7 g/dL (6.4-8.2)
[2022-04-26 17:14] VITALS: BP 148/87; PULSE 73; RESP 18; O2SAT 97
== END 2022-04-26 18:50 | disposition home or self-care (01) ==
PROVIDERS: Emergency Provider Emergency Medicine; PCP Family Medicine
DX: L76.82 Other postprocedural complications of skin and subcutaneous tissue (principal); L02.01 Cutaneous abscess of face; L03.211 Cellulitis of face
CPT/HCPCS: 10060; 80053; 96365; 96375; 85025; J0131

== ENCOUNTER 2022-09-23 19:03 | Emergency (ER) | payer MEDICAID, SELFPAY ==
[2022-09-23 19:17] VITALS: BP 144/87; PULSE 106; RESP 16; TEMP 38.7; O2SAT 97
--- NOTE | 2022-09-23 19:34 | ED.GENADUL_ITS ---
Discharge Plan Disposition Patient Disposition: Home Condition: Stable Discharge Details Clinical Impression: Cellulitis of back, Abscess of back Primary Care Provider: Uzma Campbell V ED Provider: Arlene Bunn Home Meds and New Rx's Prescriptions: New oxycodone 5 mg tablet 5 mg PO TID PRN (Reason: pain) Qty: 5 0RF Continued acetaminophen 500 mg capsule 1,000 mg PO Q6H PRN diclofenac sodium 1 % gel 2 g topical BID Rx Instructions: apply to single elbow, wrist or hand; for hand includes palm/fingers/back of hand albuterol sulfate 90 mcg/actuation HFA aerosol inhaler 2 puff inhalation Q6H PRN methadone 10 mg/5 mL solution 5 mg PO DAILY Rx Instructions: Dose Adjusted per [facility] (DME) lancets 1 EACH misc 1 ea Miscellaneous TID 30 Days Qty: 100 3RF (DME) blood sugar diagnostic [Blood Glucose Test] 1 EACH strip 1 ea Miscellaneous TID 30 Days Qty: 100 3RF Rx Instructions: Verio One Touch delicata Eliquis 5 mg tablet 1 tab PO BID Label Comments: TAKE ONE TABLET BY MOUTH TWICE A DAY Discharge Instructions Instructions: Clindamycin (By mouth), Oxycodone, Rapid Release (By mouth), Cellulitis (ED), Abscess (ED) Additional Instructions: You have an infection of your skin as well as a pocket of pus which was opened here today. Please leave the packing in place in the wound for the next 48 hours. If it falls out, please do not try to replace. Please encourage hydration. Please take the antibiotics as prescribed. Your next dose of clindamycin will be tomorrow morning. Please follow the directions on the bottle. 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 May continue with Tylenol and ibuprofen as needed for discomfort. If this is insufficient at alleviating her discomfort, you may augment this with the oxycodone as prescribed. Please keep this in a safe place. Do not drive or drink alcohol while on this medication. Would like for you to have this reevaluated on Sunday. I have asked her care management team to ensure that you are able to get a follow-up appointment as well as RCT transportation. However, if this is not successful or they are not able to [place] please return the emergency department for reevaluation. If in the interim ER symptoms become worse, you develop fever/chills, increased pain, spreading of the redness or other new/worsening symptom please seek care urgently once again. Referrals: Uzma Campbell MD [Primary Care Provider] - Discharge Data Discharge Date/Time-TO BE ENTERED AT DEPARTURE: 09/23/22 23:09 Medical Decision Making Patient is a pleasant 47-year-old male presenting today with chief complaint of growth on the left side of his back. States that this began about 2 weeks ago and has progressively been increasing. Also reports some general malaise and chills at home. States that it started with a pimple that he has continued to pick at and opened in the shower to encourage drainage. Has been intermittently using Tylenol without much improvement of his discomfort. He denies any pain into the abdomen. Denies any neurologic symptoms but does report that he has some mild discomfort moving closer towards the spine. Finds that leaning forward improves his discomfort. On exam, patient appears nontoxic. He is tachycardic at 106. His temp was initially elevated at 38 7 when checked orally was found to be afebrile, this was thought to be associated with a hat that he was wearing. Lungs are clear. Abdomen is benign. Patient has a abscess that is oblong just lateral to the spine and extending to the left flank. Estimate 18 cm in width by 10 cm in width. No midline tenderness. Neurologically intact. Concern given the size of this for potential deep structure involvement do feel that CT would be appropriate prior to incision and drainage. Discussed this concern and plan with the patient. He is in agreement. We will start him on IV antibiotics and give analgesics. Labs reviewed. Leukocytosis. Patient is received his clindamycin. Pain is improved although not gone, after IV morphine. Lactate within normal limits. CT reviewed by radiologist: FINDINGS: Lungs: No acute lung base infiltrates. Anterolateral right lower lobe with 2 small nodules abutting the oblique fissure. These measure approximately 4 mm each. See series 4, images 1 and 3. No change since 2018. These are consistent with small granulomas. There is also an additional nodule in the mid aspect of the right lower lobe on image 2 measuring 4 mm. Also stable. Posterolateral left lung base 4 mm nodule also stable since previous exam. This is evident on series 4, image 2 as well. Some additional smaller stable nodules are also suggested in the lung bases bilaterally. Pleural spaces: No pleural effusion. Heart: Normal heart size. No pericardial effusion. No coronary artery atherosclerosis. Liver: The liver is normal in size, contour and attenuation. Gallbladder and bile ducts: Normal. No calcified stones. No ductal dilation. Pancreas: The pancreas is normal in contour and attenuation. Spleen: Mild splenomegaly with AP diameter of 13 cm. There is a low-attenuation focus subcapsular in the posterior lateral spleen measuring 9 mm. This is also present in 2018 but was smaller at that time measuring approximally 6-7 mm. This is likely a small splenic cyst. A follow-up ultrasound could be performed to confirm this. An additional splenic cyst is suggested in the anterior aspect of the spleen on series 4, image 13. This measures 5 mm. This is not evident on prior study. Adrenal glands: The adrenal glands are normal in size and contour bilaterally. Kidneys and ureters: The kidneys bilaterally are unremarkable. Normal attenutation. No hydronephrosis. No calculi. Subcentimeter left renal subcortical cysts. No further imaging follow-up is recommended based on MIPS criteria. Stomach and bowel: Gastric morphology is unremarkable. No edema. No gastric outlet obstruction. Small bowel loops are normal in course and caliber. There is no mucosal edema or bowel wall thickening. No obstructive features. Large bowel without acute disease. Formed feces. No edema or obstructive changes. Appendix: No evidence of appendicitis. Intraperitoneal space: Unremarkable. No free air. No significant fluid collection. Vasculature: Unremarkable. No abdominal aortic aneurysm. Lymph nodes: Left inguinal lymph node mildly enlarged measuring 23 x 10 mm. Urinary bladder: Urinary bladder is unremarkable in appearance. No wall thickening. No intravesicular calculi. No intravesicular gas. Reproductive: Unremarkable as visualized. Bones/joints: Degenerative lumbar spine changes. Multilevel degenerative disc disease and facet disease. Bqsz-[id number] spinal stenosis at L3-L4 and L4-L5.. No acute fracture. Soft tissues: Abdominal wall soft tissues are unremarkable. Soft tissues of the left flank with subcutaneous fatty increased attenuation. See series 4, image 20. This area measures 8.6 cm transversely by 3.4 cm AP. Cephalo caudal extent of this process on sagittal image 36 is 6.8 cm. This likely represents an area of cellulitis. There is no liquefaction to suggest abscess. There is no soft tissue emphysema. IMPRESSION: 1. Left flank prominent area of subcutaneous fatty stranding suggesting cellulitis. No discrete abscess. No soft tissue emphysema. 2. Splenic low-attenuation foci likely representing small cysts. Ultrasound follow-up for correlation is recommended. There is mild splenomegaly with AP diameter of 13 cm. 3. Multiple small lung base nodules stable since previous exam most consistent with benign granulomas. 4. Mildly enlarged left inguinal lymph node measuring 23 x 10 mm. 5. Degenerative lumbar spine disease. Discussed these findings with the patient. He will follow-up with primary care regarding the incidental findings. I evaluated the area with an ultrasound. I did also have Dr. Khan review ultrasound findings with me. While the findings on CT suggest more of a cellulitis, a positive fluid is able to be identified on ultrasound. Therefore, the patient and I discussed with/benefits, procedural steps as well as alternative options for incision and drainage of the abscess. Patient voiced understanding and wished to proceed. Please see procedure note. Patient tolerated this well. Large amount of purulent discharge was expressed from the area. Area was packed. Patient I discussed wound care in depth. We discussed inpatient versus outpatient management. He does not want to be admitted. He does live with friends and is able to return should he have any worsening of his symptoms. Advised that he needs to have this reevaluated on Sunday. Advised that if he is not able to be seen by his primary care he should come back to the emergency department for reevaluation. As patient does not drive, I have asked our care management team to assist in obtaining urgent [facility] transportation. I also asked that they ensure that the patient does follow-up with primary care is able to on Sunday. Patient will continue with oral clindamycin. Strict return precautions were discussed. We will give small amount of narcotics to help with discomfort. Advised that he not drink alcohol with this. Patient does not drive at baseline. He was instructed to use only as directed. All of his questions and concerns were addressed and he is in agreement with this plan. Sign Out No HPI General Mode of arrival: ambulatory . Date/Time Provider Initiated Documentation: 09/23/22 19:33 . Limitations to Documentation: no limitations . Information obtained by: patient and RN notes reviewed . History of Present Illness 47 year old M presents to the emergency department with the chief complaint of erythema, swelling, pain to left side of back, described as severe, with intensity rated at 10. Quality is described as stabbing, and is localized to the back. Patient reports no radiation. Patient started experiencing this week(s) (2) and it has been constant. No relieving factors improve symptom(s), No exacerbating factors reported . Patient notes fever/chills, loss of appetite and malaise; denies chest pain, cough, headaches, nausea/vomiting, shortness of breath and weakness. Patient did receive the following treatments prior to arrival, none Related Data Home Medications Medication Instructions Recorded Confirmed blood sugar diagnostic (Blood #100 strips 09/21/17 02/27/20 Glucose Test strips) lancets #100 ea 09/21/17 02/27/20 apixaban 5 mg tablet (Eliquis) 1 tab PO BID 04/26/22 09/23/22 acetaminophen 500 mg capsule 1,000 mg PO Q6H PRN 06/29/22 09/23/22 albuterol sulfate 90 mcg/actuation 2 puff inhalation Q6H PRN 06/29/22 09/23/22 aerosol inhaler diclofenac sodium 1 % topical gel 2 g topical BID 06/29/22 09/23/22 methadone 10 mg/5 mL oral solution 5 mg PO DAILY 06/29/22 09/23/22 oxycodone 5 mg tablet 5 mg PO TID PRN pain #5 tabs 09/23/22 Previous Rx's Medication Instructions Recorded blood sugar diagnostic (Blood #100 strips 09/21/17 Glucose Test strips) lancets #100 ea 09/21/17 oxycodone 5 mg tablet 5 mg PO TID PRN pain #5 tabs 09/23/22 Allergies Allergy/AdvReac Type Severity Reaction Status Date / Time liraglutide [From Victoza] Allergy Unknown Verified 09/23/22 19:21 metformin Allergy Unknown Verified 09/23/22 19:21 rizatriptan benzoate Allergy Unverified 09/23/22 19:21 [From Maxalt] fentanyl AdvReac Mild doesn't Unverified 09/23/22 19:21 like how he feels General Stated Complaint: Cellulitis ANA PAULA: 3 Review of Systems Constitutional Constitutional: Reports as per HPI, Denies frequent falls and Denies headache(s) ENT Ears, Nose, Mouth, and Throat: Denies headache(s) Cardiovascular Cardiovascular: Denies chest pain, Denies dyspnea and Denies dyspnea on exertion Respiratory Respiratory: Denies cough, Denies dyspnea and Denies dyspnea on exertion Gastrointestinal Gastrointestinal: Denies abdominal pain, Denies change in bowel habits and Denies fecal incontinence Genitourinary Genitourinary: Reports as per HPI, Denies urinary hesitancy and Denies urinary i ncontinence Musculoskeletal Musculoskeletal: Reports as per HPI, Reports back pain, Denies muscle weakness, Denies numbness, Denies radiating pain into limb and Denies tingling Integumentary/Breasts Skin/Breast: Reports as per HPI Neurologic Neurologic: Reports as per HPI, Denies frequent falls, Denies headache(s), Denies localized weakness, Denies numbness, Denies radicular pain, Denies sensory deficit, Denies tingling and Denies paresthesias PFSH All Active Problems (Updated 09/23/22 @ 22:44 by NADINE Beard) Cellulitis of back (Acute) Abscess of back (Acute) Oral fistula (Acute) Bilateral tinnitus (Acute) Aspiration into airway (Acute) Chronic back pain (Acute) Pulmonary embolism (Acute) DVT, recurrent, lower extremity, acute (Acute) Diabetes mellitus (Acute) Hypertension (Acute) Medical History (Updated 09/23/22 @ 22:44 by NADINE Beard) Abdominal pain Agitation Boil Chest wall pain Chronic back pain Chronic headaches Chronic neck pain Constipation Diastasis recti DM (diabetes mellitus), type 2, uncontrolled DVT (deep venous thrombosis) 09/07 Dysphagia Elevated LFTs Episodic drug abuse Hyperlipidemia Hypertension Learning disability Left inguinal hernia fat containing, on CT scan, non-symptomatic Nonalcoholic fatty liver disease Pulmonary embolism on right Rash Weakness Surgical History (Updated 07/11/22 @ 09:01 by Jacqui Vargas RN) History of facial surgery Social History Smoking/Tobacco Use Status: Current every day Tobacco Type: cigarettes Smoking risk assessment performed?: Yes Alcohol Intake: former Drug use: Occasionally Substance use type: marijuana Household members: children and other Details: grandchildren Housing: apartment Number of Children: 3 current occupation: Disabled What is your relationship status?: never Panel score (0-1 are the most socially isolated patients): 0 What type of physical activity do you participate in: walking and independent ambulation Frequency: daily Do you feel safe at home: Yes Do you feel safe in your relationship?: Yes Exam Const General: cooperative, healthy appearing, comfortable, no acute distress, well developed and well groomed Nutritional Appearance: average body habitus and well nourished Orientation: alert and awake Eyes General: appearance normal, both eyes and all related structures Neck Neck: normal visual inspection, full ROM, no lymphadenopathy and no meningeal signs Resp Effort & Inspection: normal respiratory effort and able to speak in complete sentences Auscultation: clear to auscultation bilaterally, no rales, no rhonchi and no wheezes Cardio Rate: regular rate Rhythm: regular rhythm Heart Sounds: S1 normal and S2 normal Back/Spine/Pelvis Back/spine/pelvis image: 1. Area of erythema, swelling, pain, fluctuance. Area does extend out quite a bit. There is central fluctuance. Surrounding erythema is hot and tender. No midline spine pain. No CVA tenderness with percussion. No neurological deficit. Skin General skin exam: erythema and fluctuance Neuro General: patient alert and patient awake Cognition: normal cognition Speech: speech normal Gait: normal gait Motor: muscle tone normal throughout, strength 5/5 throughout, no movement abnormalities noted and no fasciculations Sensory Exam: no sensory deficits noted (no saddle paresthesias) Extrem General: normal to inspection, full ROM, capillary refill normal, no joint enlargement, no pedal edema, no calf tenderness and normal gait Psych Appearance: grossly normal and well kempt Mental Status: mental status grossly normal Speech and Movement: speech and movement normal Course Vital Signs Vital signs: Vital Signs Temperature 38.7 C H 09/23/22 19:17 Pulse 106 H 09/23/22 19:17 Respiratory Rate 16 09/23/22 19:17 Blood Pressure 144/87 H 09/23/22 19:17 Pulse Oximetry 97 09/23/22 19:17 Temperature 38.7 C H 09/23/22 19:17 Temperature Source Tympanic 09/23/22 19:17 Pulse 106 H 09/23/22 19:17 Respiratory Rate 16 09/23/22 19:17 Respiratory Effort 09/23/22 19:17 Blood Pressure 144/87 H 09/23/22 19:17 Blood Pressure Position Sitting 09/23/22 19:17 Pulse Oximetry 97 09/23/22 19:17 Oxygen Delivery Method Room Air 09/23/22 19:17 Oxygen Flow Rate 0 09/23/22 19:17 Pain Level 10 09/23/22 19:17 Procedures Abscess I/D Site: Back Side (if applicable): Left Sedation/analgesia: None Local Anesthetic: Lidocaine 1% and With Epi Amount of anesthesia used (mL): 10 Technique: Incised with #11 Blade Amount of fluid expressed (mL): 10 Irrigation: Yes Packing used?: Iodoform Complications: Other (none)
[2022-09-23 20:07] LABS: Abs Immature Grans 0.09 10^3/uL (0.0-0.06); Absolute Basophil Count 0.07 10^3/uL (0.0-0.2); Absolute Eosinophil Count 0.11 10^3/uL (0.0-0.7); Absolute Monocyte Count 1.42 10^3/uL (0.1-0.8); Basophils % 0.4; Eosinophils % 0.6; HCT 38.8 % (40.0-50.0); HGB 12.9 g/dL (13.5-17.5); Immature Grans % 0.5; Lactate 1.2 mmol/L (0.6-1.4); Lymphocytes % 8.3; MCH 29.8 pg (27.0-33.0); MCHC 33.2 % (32.0-36.0); MCV 90 fL (80-95); MPV 9.1 fL (8.0-11.0); Monocytes % 7.7; Neutrophils % 82.5; Platelet Count 203 10^3/uL (130-400); RBC 4.33 10^6/uL (4.36-5.78); RDW 12.5 % (11.8-14.1); RDW-SD 41.3 fL; WBC 18.39 10^3/uL (4.4-10.8)
[2022-09-23 20:08] LABS: Absolute Lymphocyte Count 1.53 10^3/uL (1.2-3.4); Absolute Neutrophil Count 15.17 10^3/uL (1.2-6.7)
[2022-09-23 20:25] LABS: ALT 44 U/L (16-63); AST 16 U/L (15-37); Albumin 3.2 g/dL (3.4-5.0); Alkaline Phosphatase 123 U/L (46-116); Anion Gap 6.6 mmol/L (3-11); BUN 15 mg/dL (7-18); Bilirubin, Total 0.2 mg/dL (0.2-1.0); CO2 31.4 mmol/L (21.0-32.0); Chloride 101 mmol/L (98-107); Estimated GFR 93.42 (mL/min/1.73m2); Glucose 195 mg/dL (74-106); Magnesium 2.1 mg/dL (1.8-2.4); Potassium 4.1 mmol/L (3.5-5.1); Sodium 139 mmol/L (136-145); Total Protein 7.8 g/dL (6.4-8.2)
--- NOTE | 2022-09-23 20:30 | DI.CT_ITS ---
Exam(s) CT ABDOMEN PELVIS W EXAM: CT ABDOMEN PELVIS W CLINICAL HISTORY: abscess left flank TECHNIQUE: COMPARISON: CT CT CHEST PE CTA from 05/10/2019 FINDINGS: CT examination of the abdomen and pelvis was performed with bolus infusion of 100 cc of Omnipaque 350 . Images obtained through the lung bases are unremarkable except for small stable lung nodules. The liver appears normal with no evidence of a focal mass. Spleen is unremarkable in appearance.. Gallbladder and bile ducts are unremarkable. Pancreas is unremarkable in appearance. Adrenals appear normal bilaterally. Kidneys appear normal with no evidence of renal mass, hydronephrosis, or nephrolithiasis. Unremarkab le bladder. There is no evidence of abdominal or pelvic adenopathy. Abdominal aorta is of normal diameter and no abnormality is seen involving major visceral branches.. Appendix is normal. No evidence diverticulitis or bowel obstruction. No significant abdominal wall hernia seen. Note is made of poorly defined increased attenuation in l eft flank subcutaneous tissues consistent with a cellulitis. No definite abscess seen, although MRI would be more sensitive in detecting early abscess. Impression: Findings suggestive of left flank cellulitis, no definite abscess identified by CT criteria. If ther e is a high clinical suspicion of abscess additional evaluation with MR may be considered. Otherwise negative CT examination of the abdomen and pelvis. RADIATION DOSE DELIVERED: 848.12mGy.cm Total DLP 848.12mGy.cm Total DLP DATA REPOSITORY: All CT scans at this facility are submitted to the National Radiology Data Registry (NRDR) Dose Index Registry (DIR) with the [employer] ([employer]). RADIATION OPTIMIZATION: All CT scans at this facility use at least one of these dose optimization te chniques: automated exposure control; mA and/or kV adjustment per patient size (includes targeted exa ms where dose is matched to clinical indication); or iterative reconstruction.
[2022-09-23] MEDS: Omnipaque 350 MG/ML 100 ML BTL IJ (20:38)
[2022-09-23] MEDS: Normal Saline - Diluent 50 ML VIAL IV (20:39)
[2022-09-23] MEDS: MORPHine 4 MG/ML SYR IVP (20:43)
[2022-09-23] MEDS: CLINDAMYCIN 600 MG/50 ML BAG 100 MG IVPB (20:46)
[2022-09-23] MEDS: ACETAMINOPHEN 1,000 MG/100 ML BTL 400 MG IVPB (20:46)
[2022-09-23] MEDS: Normal Saline 1,000 ML 1000 ML IV (20:46)
--- NOTE | 2022-09-23 21:09 | DI.VRAD_ITS ---
PROCEDURE INFORMATION: Exam: CT Abdomen And Pelvis With Contrast Exam date and time: 09/23/2022 8:29 PM Age: 47 years old Clinical indication: Mass, lump, or swelling; Lower; Patient HX: Abcess left flank TECHNIQUE: Imaging protocol: Computed tomography of the abdomen and pelvis with contrast. Radiation optimization: All CT scans at this facility use at least one of these dose optimization techniques: automated exposure control; mA and/or kV adjustment per patient size (includes targeted exams where dose is matched to clinical indication); or iterative reconstruction. Contrast material: OMNI-PAQUE 350; Contrast volume: 100 ml; Contrast route: INTRAVENOUS (IV); COMPARISON: CT ABD PELVIS WITH CONTRAST 01/21/2018 12:21 PM FINDINGS: Lungs: No acute lung base infiltrates. Anterolateral right lower lobe with 2 small nodules abutting the oblique fissure. These measure approximately 4 mm each. See series 4, images 1 and 3. No change since 2018. These are consistent with small granulomas. There is also an additional nodule in the mid aspect of the right lower lobe on image 2 measuring 4 mm. Also stable. Posterolateral left lung base 4 mm nodule also stable since previous exam. This is evident on series 4, image 2 as well. Some additional smaller stable nodules are also suggested in the lung bases bilaterally. Pleural spaces: No pleural effusion. Heart: Normal heart size. No pericardial effusion. No coronary artery atherosclerosis. Liver: The liver is normal in size, contour and attenuation. Gallbladder and bile ducts: Normal. No calcified stones. No ductal dilation. Pancreas: The pancreas is normal in contour and attenuation. Spleen: Mild splenomegaly with AP diameter of 13 cm. There is a low-attenuation focus subcapsular in the posterior lateral spleen measuring 9 mm. This is also present in 2018 but was smaller at that time measuring approximally 6-7 mm. This is likely a small splenic cyst. A follow-up ultrasound could be performed to confirm this. An additional splenic cyst is suggested in the anterior aspect of the spleen on series 4, image 13. This measures 5 mm. This is not evident on prior study. Adrenal glands: The adrenal glands are normal in size and contour bilaterally. Kidneys and ureters: The kidneys bilaterally are unremarkable. Normal attenutation. No hydronephrosis. No calculi. Subcentimeter left renal subcortical cysts. No further imaging follow-up is recommended based on MIPS criteria. Stomach and bowel: Gastric morphology is unremarkable. No edema. No gastric outlet obstruction. Small bowel loops are normal in course and caliber. There is no mucosal edema or bowel wall thickening. No obstructive features. Large bowel without acute disease. Formed feces. No edema or obstructive changes. Appendix: No evidence of appendicitis. Intraperitoneal space: Unremarkable. No free air. No significant fluid collection. Vasculature: Unremarkable. No abdominal aortic aneurysm. Lymph nodes: Left inguinal lymph node mildly enlarged measuring 23 x 10 mm. Urinary bladder: Urinary bladder is unremarkable in appearance. No wall thickening. No intravesicular calculi. No intravesicular gas. Reproductive: Unremarkable as visualized. Bones/joints: Degenerative lumbar spine changes. Multilevel degenerative disc disease and facet disease. [id number]-[id number] spinal stenosis at L3-L4 and L4-L5.. No acute fracture. Soft tissues: Abdominal wall soft tissues are unremarkable. Soft tissues of the left flank with subcutaneous fatty increased attenuation. See series 4, image 20. This area measures 8.6 cm transversely by 3.4 cm AP. Cephalo caudal extent of this process on sagittal image 36 is 6.8 cm. This likely represents an area of cellulitis. There is no liquefaction to suggest abscess. There is no soft tissue emphysema. IMPRESSION: 1. Left flank prominent area of subcutaneous fatty stranding suggesting cellulitis. No discrete abscess. No soft tissue emphysema. 2. Splenic low-attenuation foci likely representing small cysts. Ultrasound follow-up for correlation is recommended. There is mild splenomegaly with AP diameter of 13 cm. 3. Multiple small lung base nodules stable since previous exam most consistent with benign granulomas. 4. Mildly enlarged left inguinal lymph node measuring 23 x 10 mm. 5. Degenerative lumbar spine disease. Dictated and Authenticated by: Josesito Harp MD. Ordering:RICHARD Jacobs MD
[2022-09-23 22:45] VITALS: BP 146/74; PULSE 82; RESP 19; TEMP 37; O2SAT 100
[2022-09-23] MEDS: Lidocaine/Epinephri/Tetracaine Topical Gel 3 ML (22:45)
--- NOTE | 2022-09-23 22:46 | NUR.NOTE ---
Referral faxed to [facility]-Copy to Care Management. Provider would like patient to f/u with pcp on 09/25/22 for an abscess on his left back. Copy to Care Management as he is an RCT client and is afraid that there won't be enough notice to [facility] for a ride.Nursing Note:
[2022-09-23] MEDS: Clindamycin 150 MG CAP, 12 CAPS/BTL 450 MG PO (22:55)
--- NOTE | 2022-09-26 08:54 | PDOC.ERCMACT ---
- If Service Date Differs Date of service: 09/26/22 Time of Service: 08:54 Care Management Activity Note Derek is seen in the ED for an abscess on the left side of his spine. At the request of ED provider, TARA contacts the [facility] to ensure Derek has a follow up appointment. TARA is informed the [facility] has scheduled a follow up appointment at 2:30 pm today (09/26/22) but they have been unable to reach Derek to make him aware of the appointment. The [facility] has spoken with Derek's mother and confirmed his phone number. They will continue to attempt to reach him.
== END 2022-09-23 23:09 | disposition home or self-care (01) ==
PROVIDERS: Emergency Provider Physician Assistant; PCP Family Medicine
DX: L03.312 Cellulitis of back [any part except buttock and flank] (principal); L02.212 Cutaneous abscess of back [any part, except buttock and flank]; D72.829 Elevated white blood cell count, unspecified; Z86.73 Personal history of transient ischemic attack (TIA), and cerebral infarction without residual deficits; E11.9 Type 2 diabetes mellitus without complications; I10 Essential (primary) hypertension
CPT/HCPCS: 10060; 80053; 87040; 96361; 96365; 96375; 99285; 74177; 83605; 83735; 85025; 99284; J0131; J2270; J3490

== ENCOUNTER 2022-09-26 17:20 | Outpatient (REF) | payer MEDICAID, SELFPAY | END 2022-09-26 17:21 | disposition home or self-care (01) | LOC: NCHCN 17:20 | PROVIDERS: PCP Family Medicine; Visit Provider Family Medicine | DX: L03.90 Cellulitis, unspecified (principal) | CPT/HCPCS: 87077; 87070; 87186; 87205 ==

== ENCOUNTER 2022-12-24 11:39 | Emergency (ER) | payer MEDICAID, SELFPAY ==
[2022-12-24 11:35] VITALS: BP 174/100; PULSE 77; RESP 18; TEMP 36.6; O2SAT 95
[2022-12-24 11:52] VITALS: RESP 18
[2022-12-24] MEDS: Lidocaine 5% Patch 1 PATCH TP (12:46)
--- NOTE | 2022-12-24 12:53 | W.ED.GENAD ---
Discharge Plan Disposition Patient Disposition: Home Discharge Details Clinical Impression: Otitis media, Hypertension, URI (upper respiratory infection), Acute lumbar myofascial strain Primary Care Provider: Uzma Campbell V ED Provider: Alejandro Loya Home Meds and New Rx's Prescriptions: New amoxicillin-pot clavulanate 875-125 mg tablet 1 tab PO Q12H 6 Days Qty: 12 0RF Continued acetaminophen 500 mg capsule 1,000 mg PO Q6H PRN diclofenac sodium 1 % gel 2 g topical BID Rx Instructions: apply to single elbow, wrist or hand; for hand includes palm/fingers/back of hand albuterol sulfate 90 mcg/actuation HFA aerosol inhaler 2 puff inhalation Q6H PRN methadone 10 mg/5 mL solution 5 mg PO DAILY Rx Instructions: Dose Adjusted per BAART (DME) lancets 1 EACH misc 1 ea Miscellaneous TID 30 Days Qty: 100 3RF (DME) blood sugar diagnostic [Blood Glucose Test] 1 EACH strip 1 ea Miscellaneous TID 30 Days Qty: 100 3RF Rx Instructions: Verio One Touch delicata Eliquis 5 mg tablet 1 tab PO BID Patient Comments: TAKE ONE TABLET BY MOUTH TWICE A DAY oxycodone 5 mg tablet 5 mg PO TID PRN (Reason: pain) Qty: 5 0RF Discharge Instructions Instructions: Muscle Strain (ED), Ear Infection (ED), Upper Respiratory Infection (ED), Hypertension (ED) Additional Instructions: It is very important that you take all of your medications as prescribed. Your blood pressure was noted to be high today so please follow-up with primary care provider for recheck of blood pressure and discussion of need of medication if continued elevation. Take your antibiotics for the full course and if you have any new or significant worsening of symptoms feel free to return the emergency department otherwise follow-up with your primary care provider for recheck of your ear infection. Referrals: Uzma Campbell MD [Primary Care Provider] - 1 week Discharge Data Discharge Date/Time-TO BE ENTERED AT DEPARTURE: 12/24/22 13:16 Medical Decision Making Patient presenting to the emergency department for chief complaint of headache, ear pain, dry cough. Patient also states worsening of back pain where he previously had abscess and drainage. Patient states chills and body aches as well. Physical exam is consistent with otitis media of left ear, and paraspinal muscular tenderness of the back. Patient does not had any signs or symptoms of worsening MRSA infection and wound is healing appropriately. Lung sounds are clear, no tachycardia or hypoxia, patient has no signs of meningitis, HEENT exam is otherwise unremarkable. Patient was recently on clindamycin by primary care provider within the last month. Will place patient on Augmentin for otitis media and otherwise suspect muscular strain of the back and URI. Pneumonia is considered but given that Augmentin should cover for typical initial treatment do not feel that radiological imaging is needed. After discussion of diagnosis and plan of care patient has no further needs, questions, or concerns and states clear understanding to return to the emergency department for any worsening symptoms. This documentation was generated using [employer] dictation system, please disregard any oddities of phrase or misspellings. HPI General Mode of arrival: EMS. Date/Time Provider Initiated Documentation: 12/24/22 11:40. Limitations to Documentation: no limitations. Information obtained by: patient and RN notes reviewed. History of Present Illness 47 year old M presents to the emergency department with the chief complaint of Back pain, cough, headache, described as moderate, with intensity rated at 8. Quality is described as sharp, and is localized to the head and back. Patient started experiencing this day(s) (4) and it has been constant. No relieving factors improve symptom(s), No exacerbating factors reported . Patient did receive the following treatments prior to arrival, other (Acetaminophen) Related Data Home Medications Medication Instructions Recorded Confirmed blood sugar diagnostic (Blood #100 strips 09/21/17 02/27/20 Glucose Test strips) lancets #100 ea 09/21/17 02/27/20 apixaban 5 mg tablet (Eliquis) 1 tab PO BID 04/26/22 12/24/22 acetaminophen 500 mg capsule 1,000 mg PO Q6H PRN 06/29/22 12/24/22 albuterol sulfate 90 mcg/actuation 2 puff inhalation Q6H PRN 06/29/22 12/24/22 aerosol inhaler diclofenac sodium 1 % topical gel 2 g topical BID 06/29/22 12/24/22 methadone 10 mg/5 mL oral solution 5 mg PO DAILY 06/29/22 12/24/22 oxycodone 5 mg tablet 5 mg PO TID PRN pain #5 tabs 09/23/22 12/24/22 amoxicillin 875 mg-potassium 1 tab PO Q12H 6 days #12 tabs 12/24/22 clavulanate 125 mg tablet Previous Rx's Medication Instructions Recorded blood sugar diagnostic (Blood #100 strips 09/21/17 Glucose Test strips) lancets #100 ea 09/21/17 oxycodone 5 mg tablet 5 mg PO TID PRN pain #5 tabs 09/23/22 amoxicillin 875 mg-potassium 1 tab PO Q12H 6 days #12 tabs 12/24/22 clavulanate 125 mg tablet Allergies Allergy/AdvReac Type Severity Reaction Status Date / Time liraglutide [From Victoza] Allergy Unknown Verified 12/24/22 11:38 metformin Allergy Unknown Verified 12/24/22 11:38 rizatriptan benzoate Allergy Unverified 12/24/22 11:38 [From [facility]] fentanyl AdvReac Mild doesn't Unverified 12/24/22 11:38 like how he feels General Stated Complaint: GenMedical ANA PAULA: 3 Review of Systems Constitutional Constitutional: Reports body ache(s), Reports chills, Reports fever(s), Reports headache(s) and Reports malaise Eyes Eyes: Denies eye discharge ENT Ears, Nose, Mouth, and Throat: Reports as per HPI, Denies ear discharge, Reports otalgia, Reports headache(s), Reports nasal congestion, Reports nasal discharge, Denies neck pain, Reports sore throat and Denies throat swelling Cardiovascular Cardiovascular: Denies chest pain and Denies dyspnea Respiratory Respiratory: Reports cough and Denies dyspnea Musculoskeletal Musculoskeletal: Reports back pain, Denies joint swelling and Denies neck pain Integumentary/Breasts Skin/Breast: Denies erythema and Denies rash Neurologic Neurologic: Reports headache(s) Allergic/Immunologic Allergic/Immunologic: Denies throat swelling PFSH All Active Problems (Updated 12/24/22 @ 13:02 by Alejandro Loya NP) Otitis media (Acute) URI (upper respiratory infection) (Acute) Acute lumbar myofascial strain (Acute) Oral fistula (Acute) Bilateral tinnitus (Acute) Aspiration into airway (Acute) Chronic back pain (Acute) Pulmonary embolism (Acute) DVT, recurrent, lower extremity, acute (Acute) Diabetes mellitus (Acute) Hypertension (Acute) Medical History Abdominal pain Agitation Boil Chest wall pain Chronic back pain Chronic headaches Chronic neck pain Constipation Diastasis recti DM (diabetes mellitus), type 2, uncontrolled DVT (deep venous thrombosis) 09/07 Dysphagia Elevated LFTs Episodic drug abuse Hyperlipidemia Hypertension Learning disability Left inguinal hernia fat containing, on CT scan, non-symptomatic Nonalcoholic fatty liver disease Pulmonary embolism on right Rash Weakness Surgical History History of facial surgery Social History Smoking/Tobacco Use Status: Current every day Tobacco Type: cigarettes Smoking risk assessment performed?: Yes Alcohol Intake: former Drug use: Occasionally Substance use type: marijuana Household members: children and other Details: grandchildren Housing: apartment Number of Children: 3 current occupation: Disabled What is your relationship status?: never Panel score (0-1 are the most socially isolated patients): 0 What type of physical activity do you participate in: walking and independent ambulation Frequency: daily Do you feel safe at home: Yes Do you feel safe in your relationship?: Yes Exam Const General: cooperative, comfortable and no acute distress Orientation: alert and awake HENMO Head: normal to inspection, normocephalic and atraumatic Ears: hearing grossly normal bilaterally, TM normal on the right and TM abnormal bulging on the left, wth effusion, erythematous on the left, with fluid behind the TM on the left and with loss of landmarks on the left General nose exam: external nose normal Face and sinus: no erythema Mouth: oral mucosae normal, no drooling, no muffled voice and no trismus Throat: posterior oropharynx normal Neck Neck: normal visual inspection, full ROM, no lymphadenopathy, no meningeal signs, trachea midline and supple Resp Effort & Inspection: normal respiratory effort, able to speak in complete sentences and cough Quality of cough: dry Auscultation: clear to auscultation bilaterally Cardio Rate: regular rate Rhythm: regular rhythm Heart Sounds: S1 normal, S2 normal, normal S1 and S2, no click, no gallops, no murmurs and no rubs Back/Spine/Pelvis Thoracic/Lumbar Spine: paraspinal tenderness and other (Previous wound healing well) Skin General skin exam: no rashes or lesions noted and dry skin (warm) Neuro General: patient alert, patient awake, patient oriented x3, gait normal and moves all extremities Cognition: normal cognition Speech: speech normal Course Vital Signs Vital signs: Vital Signs Temperature 36.6 C 12/24/22 11:35 Pulse 77 12/24/22 11:35 Respiratory Rate 18 12/24/22 11:35 Blood Pressure 174/100 H 12/24/22 11:35 Pulse Oximetry 95 12/24/22 11:35 Temperature 36.6 C 12/24/22 11:35 Temperature Source Oral 12/24/22 11:35 Pulse 77 12/24/22 11:35 Respiratory Rate 18 12/24/22 11:52 Respiratory Effort Normal, Non-Labored 12/24/22 11:52 Respiratory Pattern Normal 12/24/22 11:52 Blood Pressure 174/100 H 12/24/22 11:35 Blood Pressure Position Sitting 12/24/22 11:35 Pulse Oximetry 95 12/24/22 11:35 Oxygen Delivery Method Room Air 12/24/22 11:35 Oxygen Flow Rate 0 12/24/22 11:35
[2022-12-24 12:59] LABS: COVID-19 PCR Negative (Negative); Influenza A PCR Negative (Negative); Influenza B PCR Negative (Negative); RSV PCR Negative (Negative)
[2022-12-24 13:02] LABS: Source Nasopharynx
[2022-12-24] MEDS: Amoxicillin 875/Clav. 125 TAB PO (13:12)
[2022-12-24] MEDS: Amox. 875/Clav. 125, 2 TABS/BTL 1 TAB PO (13:25)
[2022-12-24 13:26] VITALS: BP 167/90; PULSE 73; RESP 18; O2SAT 94
== END 2022-12-24 13:16 | disposition home or self-care (01) ==
PROVIDERS: Emergency Provider Nurse Practitioner Family; PCP Family Medicine
DX: H66.92 Otitis media, unspecified, left ear (principal); S39.012A Strain of muscle, fascia and tendon of lower back, initial encounter; X58.XXXA Exposure to other specified factors, initial encounter; I10 Essential (primary) hypertension; J06.9 Acute upper respiratory infection, unspecified
CPT/HCPCS: 87637; 99283; 99284

== ENCOUNTER 2022-12-29 11:32 | Outpatient (REF) | payer MEDICAID, SELFPAY ==
[2022-12-29 15:03] LABS: Abs Immature Grans 0.01 10^3/uL (0.0-0.06); Absolute Basophil Count 0.06 10^3/uL (0.0-0.2); Absolute Eosinophil Count 0.31 10^3/uL (0.0-0.7); Absolute Lymphocyte Count 1.94 10^3/uL (1.2-3.4); Absolute Monocyte Count 0.57 10^3/uL (0.1-0.8); Basophils % 0.8; Eosinophils % 4.1; HCT 43.3 % (40.0-50.0); HGB 14.5 g/dL (13.5-17.5); Immature Grans % 0.1; Lymphocytes % 25.9; MCH 29.4 pg (27.0-33.0); MCHC 33.5 % (32.0-36.0); MCV 88 fL (80-95); MPV 10.8 fL (8.0-11.0); Monocytes % 7.6; Neutrophils % 61.5; Platelet Count 196 10^3/uL (130-400); RBC 4.93 10^6/uL (4.36-5.78); RDW 14.1 % (11.8-14.1); RDW-SD 44.8 fL; WBC 7.49 10^3/uL (4.4-10.8)
[2022-12-29 15:15] LABS: ESR 15 mm/hr (0-15)
[2022-12-29 15:23] LABS: ALT 32 U/L (16-63); AST 14 U/L (15-37); Albumin 3.8 g/dL (3.4-5.0); Alkaline Phosphatase 88 U/L (46-116); Anion Gap 7.2 mmol/L (3-11); BUN 15 mg/dL (7-18); Bilirubin, Total 0.2 mg/dL (0.2-1.0); C-Reactive Protein 0.15 mg/dL (0.0-0.3); CO2 29.8 mmol/L (21.0-32.0); Calcium 9.3 mg/dL (8.5-10.1); Chloride 105 mmol/L (98-107); Estimated GFR 93.42 (mL/min/1.73m2); Glucose 98 mg/dL (74-106); Potassium 4.5 mmol/L (3.5-5.1); Sodium 142 mmol/L (136-145)
[2022-12-29 15:34] LABS: Hemoglobin A1C 6.2 % (<5.7)
== END 2022-12-29 11:33 | disposition home or self-care (01) ==
LOC: NCHCN 11:32
PROVIDERS: PCP Family Medicine; Visit Provider Family Medicine
DX: E11.9 Type 2 diabetes mellitus without complications (principal); R79.89 Other specified abnormal findings of blood chemistry; I10 Essential (primary) hypertension; M54.9 Dorsalgia, unspecified; R06.02 Shortness of breath; Z86.711 Personal history of pulmonary embolism; Z87.898 Personal history of other specified conditions
CPT/HCPCS: 80053; 85652; 83036; 85025; 86140

== ENCOUNTER 2023-02-28 09:06 | Emergency (ER) | payer MEDICAID, SELFPAY ==
[2023-02-28 09:09] VITALS: BP 127/82; PULSE 90; RESP 18; TEMP 37; O2SAT 98
--- NOTE | 2023-02-28 09:24 | W.ED.GENAD ---
Discharge Plan Disposition Patient Disposition: Home Condition: Stable Discharge Details Clinical Impression: Cellulitis of left leg Primary Care Provider: Uzma Campbell V ED Provider: Bishop Oden Home Meds and New Rx's Prescriptions: New amoxicillin-pot clavulanate 875-125 mg tablet 1 tab PO BID Qty: 14 0RF sulfamethoxazole-trimethoprim [Bactrim DS] 800-160 mg tablet 1 tab PO BID Qty: 14 0RF Continued acetaminophen 500 mg capsule 1,000 mg PO Q6H PRN diclofenac sodium 1 % gel 2 g topical BID Patient Comments: not taking Rx Instructions: apply to single elbow, wrist or hand; for hand includes palm/fingers/back of hand albuterol sulfate 90 mcg/actuation HFA aerosol inhaler 2 puff inhalation Q6H PRN methadone 10 mg/5 mL solution 10 mg PO DAILY Rx Instructions: Dose Adjusted per IGOR ondansetron 4 mg tablet,disintegrating 4 mg PO Q8H Patient Comments: not taking magnesium oxide 400 mg magnesium capsule 400 mg PO DAILY Patient Comments: not taking pantoprazole 40 mg tablet,delayed release (DR/EC) 40 mg PO DAILY Patient Comments: not taking docusate sodium [Colace] 100 mg capsule 100 mg PO BID atorvastatin 20 mg tablet 20 mg PO QHS Patient Comments: not taking lisinopril 10 mg tablet 10 mg PO DAILY Patient Comments: not taking clonidine HCl 0.1 mg tablet 0.1 mg PO QHS Patient Comments: not taking methocarbamol 750 mg tablet 750 mg PO TID Patient Comments: not taking (DME) lancets 1 EACH misc 1 ea Miscellaneous TID 30 Days Qty: 100 3RF (DME) blood sugar diagnostic [Blood Glucose Test] 1 EACH strip 1 ea Miscellaneous TID 30 Days Qty: 100 3RF Rx Instructions: Verio One Touch delicata Eliquis 5 mg tablet 1 tab PO BID Patient Comments: TAKE ONE TABLET BY MOUTH TWICE A DAY oxycodone 5 mg tablet 5 mg PO TID PRN (Reason: pain) Qty: 5 0RF Patient Comments: not taking Discharge Instructions Instructions: Cellulitis (ED) Additional Instructions: follow up with your primary care provider in 1 week if not improving if you have severe worsening worsening pain, fevers, chills, Medical Decision Making 47 yo male wth hx of pe/dvt, htn, dm, who comes in with cc of left lower leg rash. He noticed it 2 days ago and states he picked at a white area in the center of it last night and drained white/yellow pus out of it. He has pain around the rash so came here. He denies fevers, chills. He arrives stable and appears well in no distress. He has stable vitals. He has 3cm of warm erythema of the mid lower left calf with a 1cm open area in the middle that is no longer drainaing pus. He has no crepitus or severe tenderness, normal distal sensation, leg is not swollen. No evidence of further abscess on u/s. Suspect cellulitis and likely had an abscess he drained last night. Will start on augmentin and bactrim. Given well appearance without fevers do not feel sepsis workup indicated. Advised to f/u with pcp especially if not improving, return precautions given Differential Diagnosis Differential Diagnosis: cellulitis, abscess HPI General Mode of arrival: ambulatory. Date/Time Provider Initiated Documentation: 02/28/23 09:06. Limitations to Documentation: no limitations. Information obtained by: patient. History of Present Illness 47 year old M presents to the emergency department with the chief complaint of left leg wound/drainage, described as moderate, Quality is described as aching, Patient started experiencing this day(s) (2) and it has been constant. No relieving factors improve symptom(s), No exacerbating factors reported . Patient notes denies fever/chills. Patient did receive the following treatments prior to arrival, none Related Data Home Medications Medication Instructions Recorded Confirmed blood sugar diagnostic (Blood #100 strips 09/21/17 02/27/20 Glucose Test strips) lancets #100 ea 09/21/17 02/27/20 apixaban 5 mg tablet (Eliquis) 1 tab PO BID 04/26/22 02/28/23 acetaminophen 500 mg capsule 1,000 mg PO Q6H PRN 06/29/22 12/24/22 albuterol sulfate 90 mcg/actuation 2 puff inhalation Q6H PRN 06/29/22 12/24/22 aerosol inhaler diclofenac sodium 1 % topical gel 2 g topical BID 06/29/22 02/28/23 methadone 10 mg/5 mL oral solution 10 mg PO DAILY 06/29/22 02/28/23 oxycodone 5 mg tablet 5 mg PO TID PRN pain #5 tabs 09/23/22 12/24/22 atorvastatin 20 mg tablet 20 mg PO QHS 01/09/23 02/28/23 clonidine HCl 0.1 mg tablet 0.1 mg PO QHS 01/09/23 02/28/23 docusate sodium 100 mg capsule 100 mg PO BID 01/09/23 (Colace) lisinopril 10 mg tablet 10 mg PO DAILY 01/09/23 02/28/23 magnesium oxide 400 mg PO DAILY 01/09/23 02/28/23 methocarbamol 750 mg tablet 750 mg PO TID 01/09/23 ondansetron 4 mg disintegrating 4 mg PO Q8H 01/09/23 tablet pantoprazole 40 mg tablet,delayed 40 mg PO DAILY 01/09/23 release amoxicillin 875 mg-potassium 1 tab PO BID #14 tabs 02/28/23 clavulanate 125 mg tablet sulfamethoxazole 800 1 tab PO BID #14 tabs 02/28/23 mg-trimethoprim 160 mg tablet (Bactrim DS) Previous Rx's Medication Instructions Recorded blood sugar diagnostic (Blood #100 strips 09/21/17 Glucose Test strips) lancets #100 ea 09/21/17 oxycodone 5 mg tablet 5 mg PO TID PRN pain #5 tabs 09/23/22 amoxicillin 875 mg-potassium 1 tab PO BID #14 tabs 02/28/23 clavulanate 125 mg tablet sulfamethoxazole 800 1 tab PO BID #14 tabs 02/28/23 mg-trimethoprim 160 mg tablet (Bactrim DS) Allergies Allergy/AdvReac Type Severity Reaction Status Date / Time liraglutide [From Victoza] Allergy Unknown Verified 02/28/23 09:12 metformin Allergy Unknown Verified 02/28/23 09:12 rizatriptan benzoate Allergy Unverified 02/28/23 09:12 [From [facility]] fentanyl AdvReac Mild doesn't Unverified 02/28/23 09:12 like how he feels General Stated Complaint: Cellulitis ANA PAULA: 4 Review of Systems All systems reviewed & are unremarkable except as noted in HPI and below Constitutional Constitutional: Denies chills, Denies fever(s) and Denies weakness Cardiovascular Cardiovascular: Denies chest pain and Denies dyspnea Respiratory Respiratory: Denies cough and Denies dyspnea Gastrointestinal Gastrointestinal: Denies abdominal pain, Denies nausea and Denies vomiting Neurologic Neurologic: Denies weakness PFSH All Active Problems (Updated 02/28/23 @ 09:25 by Bishop Oden MD) Cellulitis of left leg (Acute) Radicular syndrome of lower limbs (Acute) Oral fistula (Acute) Bilateral tinnitus (Acute) Aspiration into airway (Acute) Chronic back pain (Acute) Pulmonary embolism (Acute) DVT, recurrent, lower extremity, acute (Acute) Diabetes mellitus (Acute) Hypertension (Acute) Medical History (Updated 02/28/23 @ 09:25 by Bishop Oden MD) Abdominal pain Agitation Anticoagulation therapy continued upon discharge Boil Cellulitis Chest wall pain Chronic back pain Chronic headaches Chronic neck pain Constipation Diastasis recti DM (diabetes mellitus), type 2, uncontrolled DVT (deep venous thrombosis) 09/07 Dysphagia Elevated LFTs Episodic drug abuse Fracture of orbital floor Hyperlipidemia Hypertension Learning disability Left inguinal hernia fat containing, on CT scan, non-symptomatic Nightmares Nonalcoholic fatty liver disease Pulmonary embolism on right Rash Sensitivity to light Shortness of breath Sinus disorder Situational depression Traumatic brain injury Weakness Surgical History History of facial surgery Social History Smoking/Tobacco Use Status: Current every day Tobacco Type: cigarettes Smoking risk assessment performed?: Yes Alcohol Intake: former Drug use: Occasionally Substance use type: marijuana Household members: children and other Details: grandchildren Housing: apartment Number of Children: 3 current occupation: Disabled What is your relationship status?: never Panel score (0-1 are the most socially isolated patients): 0 What type of physical activity do you participate in: walking and independent ambulation Frequency: daily Do you feel safe at home: Yes Do you feel safe in your relationship?: Yes Exam Const General: no acute distress Orientation: alert HENMT Head: normal to inspection Ears: external ears normal General nose exam: external nose normal Mouth: moist mucous membranes Eyes General: appearance normal, both eyes and all related structures Neck Neck: normal visual inspection Resp Effort & Inspection: normal respiratory effort and able to speak in complete sentences Cardio Rate: regular rate Skin General skin exam: elasticity normal Neuro General: patient alert and patient oriented x3 Extrem General: normal to inspection Psych Mental Status: mental status grossly normal Course Vital Signs Vital signs: Vital Signs Temperature 37.0 C 02/28/23 09:09 Pulse 90 02/28/23 09:09 Respiratory Rate 18 02/28/23 09:09 Blood Pressure 127/82 02/28/23 09:09 Pulse Oximetry 98 02/28/23 09:09 Temperature 37.0 C 02/28/23 09:09 Temperature Source Skin 02/28/23 09:09 Pulse 90 02/28/23 09:09 Respiratory Rate 18 02/28/23 09:09 Respiratory Effort Normal 02/28/23 09:14 Blood Pressure 127/82 02/28/23 09:09 Blood Pressure Position Sitting 02/28/23 09:09 Pulse Oximetry 98 02/28/23 09:09 Oxygen Delivery Method Room Air 02/28/23 09:09 Oxygen Flow Rate 0 02/28/23 09:09 Pain Level 5 02/28/23 09:09 Comment walking pain is a 10 02/28/23 09:09
[2023-02-28 09:36] VITALS: BP 127/82; PULSE 90; RESP 18; TEMP 37; O2SAT 98
[2023-02-28] MEDS: Amoxicillin 875/Clav. 125 TAB PO (09:36)
[2023-02-28] MEDS: Sulfameth/Trimeth DS TAB 1 TAB PO (09:36)
== END 2023-02-28 09:36 | disposition home or self-care (01) ==
PROVIDERS: Emergency Provider Emergency Medicine; PCP Family Medicine
DX: L03.116 Cellulitis of left lower limb (principal)
CPT/HCPCS: 99283; 99284

== ENCOUNTER 2023-04-09 10:31 | Outpatient (REF) | payer MEDICAID, SELFPAY ==
[2023-04-09 18:12] LABS: ALT 28 U/L (16-63); AST 23 U/L (15-37); Albumin 3.9 g/dL (3.4-5.0); Alkaline Phosphatase 81 U/L (46-116); Anion Gap 10.7 mmol/L (3-11); BUN 21 mg/dL (7-18); Bilirubin, Total 0.5 mg/dL (0.2-1.0); CO2 22.3 mmol/L (21.0-32.0); CREATININE 0.8 mg/dL (0.70-1.30); Calcium 8.9 mg/dL (8.5-10.1); Chloride 105 mmol/L (98-107); Estimated GFR 109.85 (mL/min/1.73m2); Glucose 96 mg/dL (74-106); Potassium 4.3 mmol/L (3.5-5.1); Sodium 138 mmol/L (136-145); TSH (W/Ref FT4) 0.21 uIU/mL (0.36-3.74)
[2023-04-09 19:31] LABS: FREE T4 1.16 ng/dL (0.76-1.46)
== END 2023-04-09 10:32 | disposition home or self-care (01) ==
LOC: NCHCN 10:31
PROVIDERS: PCP Family Medicine; Visit Provider Family Medicine
DX: R63.4 Abnormal weight loss (principal); R53.83 Other fatigue; E55.9 Vitamin D deficiency, unspecified
CPT/HCPCS: 80053; 82306; 84439; 84443

== ENCOUNTER 2023-05-03 14:49 | Outpatient (REF) | payer MEDICAID, SELFPAY | END 2023-05-03 14:50 | disposition home or self-care (01) | LOC: NCHCN 14:49 | PROVIDERS: PCP Family Medicine; Visit Provider Family Medicine | DX: J02.9 Acute pharyngitis, unspecified (principal) | CPT/HCPCS: 87077; 87070 ==

== ENCOUNTER 2023-05-09 00:45 | Outpatient (CLI) | payer MEDICAID, SELFPAY ==
--- NOTE | 2023-05-09 | DI.RAD_ITS ---
Exam(s) XR LUMBAR SPINE COMPLETE EXAM: XR LUMBAR SPINE COMPLETE CLINICAL HISTORY: LUMBAR BACK PAIN WITH RADICULOPATHY,M54.16,BLAT HIP PAIN, M25.559. TECHNIQUE: 2D digital imaging was performed. Five views. CT CT ABDOMEN PELVIS W from 09/23/2022 FINDINGS: There is partial sacralization of L5. There is severe narrowing of the L4-5 disc space. There is a mild levoscoliosis. Facet degenerative changes are present at L4-5. No spondylolysis or spondylolis thesis. IMPRESSION: Degenerative changes at L4-5. Mild scoliosis. DATA REPOSITORY: RADIATION DOSE DELIVERED:
--- NOTE | 2023-05-09 | DI.RAD_ITS ---
Exam(s) XR PELVIS AP EXAM: XR PELVIS AP CLINICAL HISTORY: BILAT HIP PAIN, M25.559,LUMBAR BACK PAIN WITH RADICULOPATHY. TECHNIQUE: 2D digital imaging was performed. FINDINGS: BONES: No acute fracture is present. No bony destructive lesion is seen. JOINTS: No dislocation present. No joint space narrowing is present. There is mild superior acetabula r spurring on the left. There are mild degenerative changes at the inferior left SI joint. SOFT TISSUE: Normal. IMPRESSION: Mild degenerative changes. DATA REPOSITORY: RADIATION DOSE DELIVERED:
== END 2023-05-09 01:05 ==
LOC: DI 00:45
PROVIDERS: PCP Family Medicine; Visit Provider Family Medicine
DX: M54.16 Radiculopathy, lumbar region (principal); M25.552 Pain in left hip; M25.551 Pain in right hip; M25.752 Osteophyte, left hip
CPT/HCPCS: 72110; 72170

== ENCOUNTER → 2023-05-30 00:56 | Outpatient (CLI) | payer MEDICAID, SELFPAY ==
--- NOTE | 2023-05-30 13:45 | DI.MRI_ITS ---
Exam(s) MR BRAIN WO EXAM: MR BRAIN WO CLINICAL HISTORY: H/O SYNCOPE, Z86.79; H/O TRAUMATIC BRAIN INJURY, Z87.820 TECHNIQUE: Multiplanar multisequence MRI of the brain was performed. COMPARISON: CT CT HEAD CERV SPINE FACIAL WO from 02/27/2022 FINDINGS: VENTRICLES AND EXTRA AXIAL SPACES: Normal in size and morphology for the patient's age. MIDLINE SHIFT: None. CEREBRAL PARENCHYMA: No focus of restricted diffusion to suggest acute infarct. No space-occupying le henok identified. HEMORRHAGE: None. BRAINSTEM/CEREBELLUM: Normal. VISUALIZED PARANASAL SINUSES/MASTOIDS:Mucosal thickening right maxillary sinus. Vasculature: Normal flow void. PITUITARY GLAND: Unremarkable. ORBITS: Unremarkable. IMPRESSION: Unremarkable MRI of the brain. DATA REPOSITORY:
--- NOTE | 2023-05-30 14:40 | DI.MRI_ITS ---
Exam(s) MR LUMBAR SPINE WO EXAM: MR LUMBAR SPINE WO CLINICAL HISTORY: NARROWING OF INTERVERTEBRAL DISC SPACE, M99.79; LBP, M54.50; LUMBAR PAIN WI. TECHNIQUE: Multiplanar multisequence MRI of the Lumbar spine was performed. COMPARISON: CR XR LUMBAR SPINE COMPLETE from 05/09/2023 FINDINGS: Bones: The last intervertebral disc space is designated the L5/S1 level for the numbering purpose of this examination. The vertebral body heights are well maintained. Mild levo scoliosis centered at t he L3-4 level.. The marrow signal characteristics are unremarkable with the exception of degenerativ e signal changes the endplates at L4 L5. Hemangioma at S2. Cord: The conus tip ends at the T12 level. It is of normal size and signal intensity. T12-L1: Mild loss of disc height and concentric disc bulging. No central spinal canal or neural fora geraldine stenosis. L1-2: No disc herniations or bulges are present. No central spinal canal or neural foraminal stenosis . L2-3: No disc herniations or bulges are present. No central spinal canal or neural foraminal stenosis . L3-4: Mild broad-based posterior disc bulging. Mild facet joint degenerative changes. Mild bilatera l neural foraminal narrowing. No significant central canal stenosis. L4-5: Severe loss of disc height. Endplate osteophytes and mild concentric disc bulging. Facet dege nerative changes. The findings combine to produce severe left and moderate to severe right neural fo raminal narrowing as well as mild central canal stenosis. No central spinal canal or neural foramina l stenosis. L5-S1: No disc herniations or bulges are present. No central spinal canal or neural foraminal stenosi s. The visualized SI joints and sacrum are well maintained. Soft tissues: The paraspinal soft tissues are unremarkable. IMPRESSION: degenerative disc changes and facet degenerative changes are noted at L3-4 which causes and neural fo raminal narrowing. Mild central canal stenosis at L4-5. Mild scoliosis. No focal disc herniation.. DATA REPOSITORY:
== END ==
PROVIDERS: PCP Family Medicine; Visit Provider Family Medicine
DX: Z86.79 Personal history of other diseases of the circulatory system (principal); Z87.820 Personal history of traumatic brain injury; M99.79 Connective tissue and disc stenosis of intervertebral foramina of abdomen and other regions; M54.50 Low back pain, unspecified
CPT/HCPCS: 70551; 72148

== ENCOUNTER 2023-06-11 05:07 | Outpatient (CLI) | payer MEDICAID, SELFPAY ==
--- NOTE | 2023-06-11 22:44 | PDOC.EEG_ITS ---
Neurology EEG EEG: [facility] Department of Neurology EEG REPORT Date of Recordin06/11/23 Interpreting Physician: Dr. Kenia Tamez PCP/Referring Provider: Dr. Uzma Campbell Reason for study: Derek Cristobal is a 47 year-old with spells concerning for seizure s/p TBI. Current Medications: Home Medications Medication Instructions Recorded Confirmed Type blood sugar diagnostic (Blood #100 strips 09/21/17 02/27/20 Rx Glucose Test strips) lancets #100 ea 09/21/17 02/27/20 Rx apixaban 5 mg tablet (Eliquis) 1 tab PO BID 04/26/22 02/28/23 History acetaminophen 500 mg capsule 1,000 mg PO Q6H PRN 06/29/22 12/24/22 History albuterol sulfate 90 mcg/actuation 2 puff inhalation Q6H PRN 06/29/22 12/24/22 History aerosol inhaler diclofenac sodium 1 % topical gel 2 g topical BID 06/29/22 02/28/23 History methadone 10 mg/5 mL oral solution 10 mg PO DAILY 06/29/22 02/28/23 History oxycodone 5 mg tablet 5 mg PO TID PRN pain #5 tabs 09/23/22 12/24/22 Rx atorvastatin 20 mg tablet 20 mg PO QHS 01/09/23 02/28/23 History clonidine HCl 0.1 mg tablet 0.1 mg PO QHS 01/09/23 02/28/23 History docusate sodium 100 mg capsule 100 mg PO BID 01/09/23 History (Colace) lisinopril 10 mg tablet 10 mg PO DAILY 01/09/23 02/28/23 History magnesium oxide 400 mg PO DAILY 01/09/23 02/28/23 History methocarbamol 750 mg tablet 750 mg PO TID 01/09/23 History ondansetron 4 mg disintegrating 4 mg PO Q8H 01/09/23 History tablet pantoprazole 40 mg tablet,delayed 40 mg PO DAILY 01/09/23 History release amoxicillin 875 mg-potassium 1 tab PO BID #14 tabs 02/28/23 Rx clavulanate 125 mg tablet sulfamethoxazole 800 1 tab PO BID #14 tabs 02/28/23 Rx mg-trimethoprim 160 mg tablet (Bactrim DS) cholecalciferol (vitamin D3) 10 10 mcg PO DAILY 05/18/23 History mcg (400 unit) capsule cyclobenzaprine 10 mg tablet 10 mg PO TID PRN 05/18/23 History duloxetine 30 mg capsule,delayed 30 mg PO DIRECTED 05/18/23 History release duloxetine 60 mg capsule,delayed 60 mg PO DAILY 05/18/23 History release losartan 50 mg tablet 50 mg PO DAILY 05/18/23 History METHODS: A 21 channel digitized electroencephalogram was performed in the [facility] Clinical Neurophysiology Laboratory. The 10/20 international system of electrode placement was used and bipolar and referential electrode montages were recorded. In addition to EEG the patient was monitored for EKG and lateral/vertical eye movements. Activation procedures of photic stimulation and hyperventilation were performed if applicable. Video was used during activation procedures and during events where applicable. The duration of the recording was 30 minutes. DESCRIPTION OF EEG: The patient was noted to be awake, drowsy, and asleep during the recording. During maximal wakefulness a 9-Hz posterior background rhythm was present which was well-modulated, symmetrical, reactive to eye opening, and of moderate voltage. With eye opening the background activity changed to a low voltage mixture of alpha, beta, and occasional theta range frequencies. Faster frequencies were present in the bilateral anterior head regions. There was a normal anterior-posterior voltage gradient. During drowsiness, there was attenuation of the posterior dominant background rhythm and vertex waves. Stage II sleep was present with symmetrical sleep spindles, K-complexes, and vertex waves. Activating Procedures: Photic stimulation was performed which produced a symmetrical posterior driving response at various flash frequencies. Hyperventilation was performed with moderate effort and produced no physiological slowing of the background. EKG: EKG was not recorded due to technical error. INTERPRETATION: This EEG is normal during the awake and sleep states as well as during photic stimulation and hyperventilation. PRIOR EEG: none CLINICAL CORRELATION: No focal regions of cerebral dysfunction or epileptiform activity was present. Epilepsy remains a clinical diagnosis and a normal EEG does not rule out epilepsy. Clinical correlation is advised. Kenia Tamez MD
== END 2023-06-11 05:08 | disposition home or self-care (01) ==
LOC: RT 05:07
PROVIDERS: PCP Family Medicine; Visit Provider Family Medicine
DX: R41.3 Other amnesia (principal); Z87.820 Personal history of traumatic brain injury
CPT/HCPCS: 95819

== ENCOUNTER 2023-08-02 11:55 | Emergency (ER) | payer MEDICAID, SELFPAY ==
[2023-08-02 12:16] VITALS: BP 159/88; PULSE 89; RESP 18; TEMP 37.3; O2SAT 99
[2023-08-02 12:26] VITALS: BP 159/88; PULSE 89; RESP 18; TEMP 37.3; O2SAT 99
--- NOTE | 2023-08-02 12:44 | ED.GENADUL_ITS ---
Discharge Plan Disposition Patient Disposition: Home Condition: Stable Discharge Details Clinical Impression: Dental abscess Primary Care Provider: Uzma Campbell V ED Provider: Farooq Romero Home Meds and New Rx's Prescriptions: New penicillin V potassium 500 mg tablet 500 mg PO QID Qty: 39 0RF Continued albuterol sulfate 90 mcg/actuation HFA aerosol inhaler 2 puff inhalation Q6H PRN methadone 10 mg/5 mL solution 10 mg PO DAILY Rx Instructions: Dose Adjusted per IGOR atorvastatin 20 mg tablet 20 mg PO QHS Patient Comments: not taking cholecalciferol (vitamin D3) 10 mcg (400 unit) capsule 10 mcg PO DAILY (DME) lancets 1 EACH misc 1 ea Miscellaneous TID 30 Days Qty: 100 3RF (DME) blood sugar diagnostic [Blood Glucose Test] 1 EACH strip 1 ea Miscellaneous TID 30 Days Qty: 100 3RF Rx Instructions: Verio One Touch delicata Eliquis 5 mg tablet 1 tab PO BID Patient Comments: TAKE ONE TABLET BY MOUTH TWICE A DAY No Action lisinopril 10 mg tablet 10 mg PO DAILY Patient Comments: not taking clonidine HCl 0.1 mg tablet 0.1 mg PO QHS Hold Instructions: not taking Patient Comments: not taking Discharge Instructions Instructions: Dental Abscess (ED) Additional Instructions: Please take full course of antibiotic as prescribed. Please follow-up with your dentist. Call today to schedule follow-up. Please contact your primary care physician to arrange follow-up. Be sure to discuss your medication with your primary care physician. You should be taking all your medications as prescribed. Return to the ER immediately for any worsening or new concerning symptoms. Referrals: Uzma Campbell MD [Primary Care Provider] - Medical Decision Making 48-year-old smoker, poor dentition with chronic dental decay, here with tooth #27 pain and swelling adjacent gumline as well as facial swelling. Patient is afebrile. No trismus. Periapical dental block was performed after verbal informed consent. Incision and drainage performed for dental abscess. No significant purulent discharge. Plan for penicillin. Patient does note his stomach sometimes gets upset with antibiotics including amoxicillin but he had no allergy to amoxicillin. Plan for outpatient follow-up with dentist. HPI General Mode of arrival: ambulatory . Date/Time Provider Initiated Documentation: 08/02/23 12:33 . Limitations to Documentation: no limitations . Information obtained by: patient . HPI Narrative: 48-year-old male smoker here with chief complaint of right lower incisor dental pain and associated swelling, progressive over the past 6 days. No associated fever. Patient notes chronic dental fractures. Related Data Home Medications Medication Instructions Recorded Confirmed blood sugar diagnostic (Blood #100 strips 09/21/17 02/27/20 Glucose Test strips) lancets #100 ea 09/21/17 02/27/20 apixaban 5 mg tablet (Eliquis) 1 tab PO BID 04/26/22 08/02/23 albuterol sulfate 90 mcg/actuation 2 puff inhalation Q6H PRN 06/29/22 08/02/23 aerosol inhaler methadone 10 mg/5 mL oral solution 10 mg PO DAILY 06/29/22 08/02/23 atorvastatin 20 mg tablet 20 mg PO QHS 01/09/23 08/02/23 clonidine HCl 0.1 mg tablet 0.1 mg PO QHS 01/09/23 08/02/23 lisinopril 10 mg tablet 10 mg PO DAILY 01/09/23 08/02/23 cholecalciferol (vitamin D3) 10 10 mcg PO DAILY 05/18/23 08/02/23 mcg (400 unit) capsule penicillin V potassium 500 mg 500 mg PO QID #39 tabs 08/02/23 tablet Previous Rx's Medication Instructions Recorded blood sugar diagnostic (Blood #100 strips 09/21/17 Glucose Test strips) lancets #100 ea 09/21/17 penicillin V potassium 500 mg 500 mg PO QID #39 tabs 08/02/23 tablet Allergies Allergy/AdvReac Type Severity Reaction Status Date / Time liraglutide [From Victoza] Allergy Unknown Verified 08/02/23 12:22 metformin Allergy Unknown Verified 08/02/23 12:22 adhesive tape Allergy Verified 08/02/23 12:22 amoxicillin Allergy Verified 08/02/23 12:22 rizatriptan benzoate Allergy Unverified 08/02/23 12:22 [From Maxalt] fentanyl AdvReac Mild doesn't Unverified 08/02/23 12:22 like how he feels General Stated Complaint: DentalOral ANA PAULA: 3 Review of Systems All systems reviewed & are unremarkable except as noted in HPI and below Constitutional Constitutional: Denies fever(s) PFSH All Active Problems (Updated 08/02/23 @ 12:49 by Farooq Romero MD) Dental abscess (Acute) Radicular syndrome of lower limbs (Acute) Oral fistula (Acute) Bilateral tinnitus (Acute) Aspiration into airway (Acute) Chronic back pain (Acute) Pulmonary embolism (Acute) DVT, recurrent, lower extremity, acute (Acute) Diabetes mellitus (Acute) Hypertension (Acute) Medical History Personal history of other specified conditions Migraines Anemia Weight loss Fatigue Lumbar back pain with radiculopathy affecting lower extremity Bilateral hip pain Acute sore throat History of syncope Anticoagulation therapy continued upon discharge Fracture of orbital floor Sensitivity to light Traumatic brain injury Nightmares Sinus disorder Cellulitis Situational depression Shortness of breath Agitation Abdominal pain Elevated LFTs Boil Constipation Weakness Dysphagia Chest wall pain Rash Hypertension Pulmonary embolism on right Chronic neck pain Chronic back pain Diastasis recti Left inguinal hernia fat containing, on CT scan, non-symptomatic Episodic drug abuse DM (diabetes mellitus), type 2, uncontrolled Hyperlipidemia DVT (deep venous thrombosis) 09/07 Learning disability Chronic headaches Nonalcoholic fatty liver disease Surgical History History of facial surgery Social History Smoking/Tobacco Use Status: Current every day Tobacco Type: cigarettes Smoking risk assessment performed?: Yes Alcohol Intake: former Drug use: Occasionally Substance use type: marijuana Household members: children and other Details: grandchildren Housing: apartment Number of Children: 3 current occupation: Disabled What is your relationship status?: never Panel score (0-1 are the most socially isolated patients): 0 What type of physical activity do you participate in: walking and independent ambulation Frequency: daily Do you feel safe at home: Yes Do you feel safe in your relationship?: Yes Exam HENMT General nose exam: external nose normal Face and sinus: edema on the right (ant lat jaw) Mouth: tongue normal Throat: posterior oropharynx normal Other: no trismus +fluctuance adjacent tooth 27 Neck Lymphatic: no lymphadenopathy noted Skin Other: no facial rash Course Vital Signs Vital signs: Vital Signs Temperature 37.3 C 08/02/23 12:16 Pulse 89 08/02/23 12:16 Respiratory Rate 18 08/02/23 12:16 Blood Pressure 159/88 H 08/02/23 12:16 Pulse Oximetry 99 08/02/23 12:16 Temperature 37.3 C 08/02/23 12:26 Temperature Source Skin 08/02/23 12:26 Pulse 89 08/02/23 12:26 Respiratory Rate 18 08/02/23 12:26 Respiratory Effort Normal 08/02/23 12:18 Blood Pressure 159/88 H 08/02/23 12:26 Blood Pressure Position Sitting 08/02/23 12:26 Pulse Oximetry 99 08/02/23 12:26 Oxygen Delivery Method Room Air 08/02/23 12:26 Oxygen Flow Rate 0 08/02/23 12:16 Procedures Abscess I/D Site: Other (dental) Side (if applicable): Right Local Anesthetic: Bupivicaine 0.5% Amount of anesthesia used (mL): 3 Technique: Incised with #11 Blade Amount of fluid expressed (mL): 0.5 Packing used?: None
[2023-08-02] MEDS: Bupivacaine 0.5% Pres-Free 30 ML VIAL IJ (13:46)
[2023-08-02] MEDS: Penicillin V POTASSIUM 500 MG TAB PO (13:46)
[2023-08-02] MEDS: Acetaminophen 325 MG TAB 650 MG PO (13:46)
[2023-08-02] MEDS: Benzocaine 20% Gel 30 GM JAR MM (13:46)
== END 2023-08-02 13:47 | disposition home or self-care (01) ==
PROVIDERS: Emergency Provider Student in an Organized Health Care Education/Training Program; PCP Family Medicine
DX: R68.84 Jaw pain (principal)
CPT/HCPCS: 41800

== ENCOUNTER 2024-03-27 12:18 | Emergency (ER) | payer MEDICAID, SELFPAY ==
[2024-03-27 12:20] VITALS: BP 163/78; PULSE 93; RESP 15; TEMP 38.9; O2SAT 98
--- NOTE | 2024-03-27 12:27 | W.ED.GENAD ---
Discharge Plan Disposition Patient Disposition: Home Condition: Stable Discharge Details Clinical Impression: Cellulitis Primary Care Provider: Uzma Campbell V ED Provider: Deon Cardenas Home Meds and New Rx's Prescriptions: New cephalexin 500 mg capsule 500 mg PO QID 10 Days Qty: 40 0RF doxycycline hyclate 100 mg capsule 100 mg PO BID 10 Days Qty: 20 0RF Continued albuterol sulfate 90 mcg/actuation HFA aerosol inhaler 2 puff inhalation Q6H PRN methadone 10 mg/5 mL solution 10 mg PO DAILY Rx Instructions: Dose Adjusted per IGOR atorvastatin 20 mg tablet 20 mg PO QHS Patient Comments: not taking lisinopril 10 mg tablet 10 mg PO DAILY Patient Comments: not taking clonidine HCl 0.1 mg tablet 0.1 mg PO QHS Hold Instructions: not taking Patient Comments: not taking cholecalciferol (vitamin D3) 10 mcg (400 unit) capsule 10 mcg PO DAILY (DME) lancets 1 EACH misc 1 ea Miscellaneous TID 30 Days Qty: 100 3RF (DME) blood sugar diagnostic [Blood Glucose Test] 1 EACH strip 1 ea Miscellaneous TID 30 Days Qty: 100 3RF Rx Instructions: Verio One Touch delicata Eliquis 5 mg tablet 1 tab PO BID Patient Comments: TAKE ONE TABLET BY MOUTH TWICE A DAY penicillin V potassium 500 mg tablet 500 mg PO QID Qty: 39 0RF Discharge Instructions Instructions: Cephalexin (By mouth), Doxycycline (By mouth), Cellulitis (ED) Additional Instructions: You were seen in the emergency department for your numerous skin lesions with some buttock swelling and as well as a right scabbed over lesion, this is consistent with likely staph infection. The lesions to your buttock area do not appear to have fluid center on my palpation of them. Do not think there warranted for incision and drainage at this time. He had a persistent fever but that are reassuring for no sign of sepsis, you have no elevation of lactate, no elevation of white blood cells. We did give you Tylenol and an NSAID and your fever did improve some. As you are not compliant with your Eliquis you could take Tylenol and Motrin both for fever while we treat this infection but I do recommend that you get back on your Eliquis. He cannot take NSAIDs and Eliquis at the same time. We loaded you with IV antibiotics and are transitioning you to dual antibiotic therapy as an outpatient, please picking supervisor your prescriptions at the pharmacy. Please use therapeutic dosing of Tylenol (acetamenophen) & Advil (ibuprofen) in an alternating fashion as follows: Take 1000mg of Tylenol every 6 hours without missing doses- that is 4 times per day. Chcf in between the Tylenol dosings, take 400-600mg of Advil also on a 6 hour schedule, that is also 4 times per day. The daily maximum dosing of Tylenol is 4000mg, and the daily maximum dosing of Advil is 2400mg. This is safe to do for weeks. Please note that some common cold medications & prescription pain medications may contain acetamenophen and you need to read OTC drug labels and factor that in to maximum daily dosings. Please return to the emergency department for any signs of systemic increase in illness like fever, persistently fast heart rate, large increase in the swelling or pain around your sores, nausea, weakness, vomiting. Referrals: Uzma Campbell MD [Primary Care Provider] - HPI General Date/Time Provider Initiated Documentation: 03/27/24 12:26. HPI Narrative: 48 year-old male presents to ED today by POV/ambulating with a chief complaint of states he has bug bites, scabbed over swollen spots diffusely, mostly focal on R buttock with onset noted 4 days ago, has more mild spots to legs and R forearm. Quality described as tender to touch, questions whether bugs got in his pants, no radiation to overt fever, but does have fever on triage, denies chills/sweats, denies nausea/vomiting, endorses fatigue, denies shortness of breath, denies chest pain. Severity is described as moderate. Palliating factors include nothing specific attempted. Provoking factors include nothing specific. Events leading up to the incident/Associated Symptoms: Patient endorses history of IVDU. Patient is anticoagulated on Eliquis due to history of DVTs and PEs. Related Data Home Medications Medication Instructions Recorded Confirmed blood sugar diagnostic (Blood #100 strips 09/21/17 02/27/20 Glucose Test strips) lancets #100 ea 09/21/17 02/27/20 apixaban 5 mg tablet (Eliquis) 1 tab PO BID 04/26/22 08/02/23 albuterol sulfate 90 mcg/actuation 2 puff inhalation Q6H PRN 06/29/22 08/02/23 aerosol inhaler methadone 10 mg/5 mL oral solution 10 mg PO DAILY 06/29/22 08/02/23 atorvastatin 20 mg tablet 20 mg PO QHS 01/09/23 08/02/23 clonidine HCl 0.1 mg tablet 0.1 mg PO QHS 01/09/23 08/02/23 lisinopril 10 mg tablet 10 mg PO DAILY 01/09/23 08/02/23 cholecalciferol (vitamin D3) 10 10 mcg PO DAILY 05/18/23 08/02/23 mcg (400 unit) capsule penicillin V potassium 500 mg 500 mg PO QID #39 tabs 08/02/23 tablet cephalexin 500 mg capsule 500 mg PO QID cellulitis 10 days 03/27/24 #40 caps doxycycline hyclate 100 mg capsule 100 mg PO BID cellulitis 10 days 03/27/24 #20 caps Previous Rx's Medication Instructions Recorded blood sugar diagnostic (Blood #100 strips 09/21/17 Glucose Test strips) lancets #100 ea 09/21/17 penicillin V potassium 500 mg 500 mg PO QID #39 tabs 08/02/23 tablet cephalexin 500 mg capsule 500 mg PO QID cellulitis 10 days 03/27/24 #40 caps doxycycline hyclate 100 mg capsule 100 mg PO BID cellulitis 10 days 03/27/24 #20 caps Allergies Allergy/AdvReac Type Severity Reaction Status Date / Time liraglutide [From Victoza] Allergy Unknown Other (See Verified 03/27/24 12:26 Comment) metformin Allergy Unknown Other (See Verified 03/27/24 12:26 Comment) adhesive tape Allergy Other (See Verified 03/27/24 12:26 Comment) amoxicillin Allergy Other (See Verified 03/27/24 12:26 Comment) rizatriptan benzoate Allergy Other (See Unverified 03/27/24 12:26 [From [facility]] Comment) fentanyl AdvReac Mild doesn't Unverified 03/27/24 12:26 like how he feels General Stated Complaint: Cellulitis ANA PAULA: 2 Review of Systems All systems reviewed & are unremarkable except as noted in HPI and below Exam Narrative Exam Narrative: GENERAL APPEARANCE: Well-nourished, non-toxic, awake and alert, atraumatic, no acute distress. SKIN: Warm, pink, dry, intact, without rashes/lesions/ulcerations. HEAD: Normocephalic, atraumatic, normal hair distribution for gender/age. EYES: Pupils PERRLA, EOMs intact without nystagmus, normal conjunctiva, no exudates on lids/lashes. ENT: Nares patent, no circumoral cyanosis, no facial swelling NECK: Supple, trachea midline, painless cervical ROM. LUNGS/CHEST: Lungs CTA bilaterally, non-labored respirations, normal A/P diameter, symmetrical expansion, no chest wall deformity HEART (CV/PV): Regular rate and rhythm without murmur, no peripheral edema, no JVD. ABDOMEN: Soft, non-distended, no guarding. MSK: Normal ROM, no swelling/deformity to bilateral UEs or LEs, moving all extremities without weakness, no cyanosis, spine midline without tenderness, normal curvature. NEURO: Mental Status AAOx4 - alert to person, place, time, events No facial droop, no forehead involvement. Motor: No focal weakness - strength 5/5 in bilateral UEs and LEs, proximal and distal, symmetric. Sensory: sensation intact to light touch globally. Gait normal: patient ambulated without ataxia into ED room. PSYCH: euthymic, cooperative, pleasant, appropriate speech Course Vital Signs Vital signs: Vital Signs Temperature 38.9 C H 03/27/24 12:20 Pulse 93 H 03/27/24 12:20 Respiratory Rate 15 03/27/24 12:20 Blood Pressure 163/78 H 03/27/24 12:20 Pulse Oximetry 98 03/27/24 12:20 Temperature 38.9 C H 03/27/24 12:20 Temperature Source Oral 03/27/24 12:20 Pulse 93 H 03/27/24 12:20 Respiratory Rate 15 03/27/24 12:20 Blood Pressure 163/78 H 03/27/24 12:20 Blood Pressure Position Sitting 03/27/24 12:20 Pulse Oximetry 98 03/27/24 12:20 Oxygen Delivery Method Room Air 03/27/24 12:20 Oxygen Flow Rate 0 03/27/24 12:20 Pain Level 8 03/27/24 12:20 Medical Decision Making This dictation utilizes [id number] dictation software and may contain unedited grammatical errors. 48 year-old male presents to ED today by POV/ambulating with a chief complaint of states he has bug bites, scabbed over swollen spots diffusely, mostly focal on R buttock with onset noted 4 days ago, has more mild spots to legs and R forearm. Quality described as tender to touch, questions whether bugs got in his pants, no radiation to overt fever, but does have fever on triage, denies chills/sweats, denies nausea/vomiting, endorses fatigue, denies shortness of breath, denies chest pain. Severity is described as moderate. Palliating factors include nothing specific attempted. Provoking factors include nothing specific. Events leading up to the incident/Associated Symptoms: Patient endorses history of IVDU. Patient is anticoagulated on Eliquis due to history of DVTs and PEs. Patients' medical history: History of DVT, PE, migraine, traumatic brain injury, situational depression, episodic drug abuse, type 2 diabetes mellitus. Family and social history: Denies active IVDU. Pertinent exam findings / vital signs include indurated swollen areas in the right buttock without fluctuant swelling, scabbed over lesion on right forearm as well as diffusely to the legs, febrile in triage, no tachycardia. Differential / pathologies of concern include cellulitis, MRSA infection, sepsis. Diagnostic studies of: -CBC, CMP, Lactate, Procalcitonin, Blood Cx's. -CBC shows no leukocytosis, chronic anemia -CMP is benign with only a mild bump in his BUN without SULAIMAN, no elevated LFTs -Lactate is negative and procalcitonin is negative-do not suspect sepsis -Blood cultures pending Interventions of: -Outpatient Rx for Keflex and doxycycline, recommend therapeutic Tylenol. -Loaded with IV Cefazolin and Vancomycin, transition to PO -Given PO APAP, and 15mg IV Ketorlac as he has been noncompliant with his Eliquis - fever improved to 101F, patient states he feels great. ED Course/Assessment/Plan: 48-year-old male seen for multiple areas of boils, mostly focal to the right buttock that he questions are bug bites, he is present more as likely cellulitis with MRSA possibility with history of IVDU, he has diffuse CMS with mild erythematous borders globally. There is no fluctuance to the buttock erythema, I do not think there is any necessary incision and drainage at this time, his labs are reassuring for no evidence of sepsis, I did treat his fever with Tylenol. Counseled on sitz bath's and hot compresses to areas of scabs, provided chlorhexidine soap by prescription for decolonization. Counseled on strict return criteria for worsening fever, chills, nausea, weakness, severe increase in buttock swelling with fluctuance. Patient was loaded with IV antibiotics due to persistent fever, but felt great, transitioned to PO antibiotics and discharged home. Findings not consistent with drainable abscess, sepsis. Disposition of Cellulitis. Patient verbalized understanding of the plan and return to ED criteria and engaged in shared decision making. Medical Records Medical records reviewed: Yes I reviewed the patient's medical records. Lab Data Lab results reviewed: Yes I reviewed the patient's lab results. Labs: 03/27/24 12:45 Blood Blood Culture - Pending 03/27/24 12:42 Blood Blood Culture - Pending Laboratory Tests Range/Units 03/27/24 12:45 WBC (4.4-10.8) 10^3/uL 9.90 RBC (4.36-5.78) 10^6/uL 4.27 L Hgb (13.5-17.5) g/dL 12.8 L Hct (40.0-50.0) % 38.0 L MCV (80-95) fL 89 MCH (27.0-33.0) pg 30.0 MCHC (32.0-36.0) % 33.7 RDW (11.8-14.1) % 13.4 Plt Count (130-400) 10^3/uL 140 MPV (8.0-11.0) fL Immature Gran % % 0.5 Neutrophils % % 89.0 Lymphocytes % % 4.2 Monocytes % % 5.6 Eosinophils % % 0.4 Basophils % % 0.3 Nucleated RBC % (0.0-0.3) % 0.0 Absolute Neutrophils (1.2-6.7) 10^3/uL 8.81 H Absolute Lymphocytes (1.2-3.4) 10^3/uL 0.42 L Absolute Monocytes (0.1-0.8) 10^3/uL 0.55 Absolute Eosinophils (0.0-0.7) 10^3/uL 0.04 Absolute Basophils (0.0-0.2) 10^3/uL 0.03 RBC Morphology Normal VBG Lactate (0.6-1.4) mmol/L 1.0 Sodium (136-145) mmol/L 141 Potassium (3.5-5.1) mmol/L 4.2 Chloride (98-107) mmol/L 106 Carbon Dioxide (21.0-32.0) mmol/L 25.6 Anion Gap (3-11) mmol/L 9.4 BUN (7-18) mg/dL 21 H Creatinine (0.70-1.30) mg/dL 1.0 Est GFR (CKD-EPI 2020) (mL/min/1.73m2) 92.84 Glucose (74-106) mg/dL 136 H Calcium (8.5-10.1) mg/dL 8.6 Total Bilirubin (0.2-1.0) mg/dL 0.6 AST (15-37) U/L 18 ALT (16-63) U/L 35 Alkaline Phosphatase (46-116) U/L 82 Total Protein (6.4-8.2) g/dL 7.4 Albumin (3.4-5.0) g/dL 3.7 Procalcitonin ng/mL < 0.1 Quality:[facility] Health Related Social Needs: No Data to Display PFSH All Active Problems (Updated 03/27/24 @ 13:44 by NADINE Jones) Cellulitis (Acute) Radicular syndrome of lower limbs (Acute) Oral fistula (Acute) Bilateral tinnitus (Acute) Aspiration into airway (Acute) Chronic back pain (Acute) Pulmonary embolism (Acute) DVT, recurrent, lower extremity, acute (Acute) Diabetes mellitus (Acute) Hypertension (Acute) Medical History Personal history of other specified conditions Migraines Anemia Weight loss Fatigue Lumbar back pain with radiculopathy affecting lower extremity Bilateral hip pain Acute sore throat History of syncope Anticoagulation therapy continued upon discharge Fracture of orbital floor Sensitivity to light Traumatic brain injury Nightmares Sinus disorder Cellulitis Situational depression Shortness of breath Agitation Abdominal pain Elevated LFTs Boil Constipation Weakness Dysphagia Chest wall pain Rash Hypertension Pulmonary embolism on right Chronic neck pain Chronic back pain Diastasis recti Left inguinal hernia fat containing, on CT scan, non-symptomatic Episodic drug abuse DM (diabetes mellitus), type 2, uncontrolled Hyperlipidemia DVT (deep venous thrombosis) 09/07 Learning disability Chronic headaches Nonalcoholic fatty liver disease Surgical History History of facial surgery Social History Smoking/Tobacco Use Status: Current every day Tobacco Type: cigarettes Smoking risk assessment performed?: Yes Alcohol Intake: former Drug use: Occasionally Substance use type: marijuana Household members: children and other Details: grandchildren Housing: apartment Number of Children: 3 current occupation: Disabled What is your relationship status?: never Panel score (0-1 are the most socially isolated patients): 0 What type of physical activity do you participate in: walking and independent ambulation Frequency: daily Do you feel safe at home: Yes Do you feel safe in your relationship?: Yes
[2024-03-27 12:29] VITALS: BP 163/78; PULSE 93; RESP 15; TEMP 38.9; O2SAT 98
[2024-03-27] MEDS: Acetaminophen 500 MG TAB 1000 MG PO (12:58)
[2024-03-27 13:09] LABS: Abs Immature Grans 0.05 10^3/uL (0.0-0.06); Absolute Basophil Count 0.03 10^3/uL (0.0-0.2); Absolute Eosinophil Count 0.04 10^3/uL (0.0-0.7); Absolute Lymphocyte Count 0.42 10^3/uL (1.2-3.4); Absolute Monocyte Count 0.55 10^3/uL (0.1-0.8); Absolute Neutrophil Count 8.81 10^3/uL (1.2-6.7); Basophils % 0.3 %; Eosinophils % 0.4 %; HGB 12.8 g/dL (13.5-17.5); Immature Grans % 0.5 %; Lymphocytes % 4.2 %; MCHC 33.7 % (32.0-36.0); MCV 89 fL (80-95); Monocytes % 5.6 %; RBC 4.27 10^6/uL (4.36-5.78); RDW 13.4 % (11.8-14.1); RDW-SD 44.2 fL
[2024-03-27 13:16] LABS: ALT 35 U/L (16-63); AST 18 U/L (15-37); Albumin 3.7 g/dL (3.4-5.0); Alkaline Phosphatase 82 U/L (46-116); Anion Gap 9.4 mmol/L (3-11); BUN 21 mg/dL (7-18); Bilirubin, Total 0.6 mg/dL (0.2-1.0); CO2 25.6 mmol/L (21.0-32.0); Calcium 8.6 mg/dL (8.5-10.1); Chloride 106 mmol/L (98-107); Estimated GFR 92.84 (mL/min/1.73m2); Glucose 136 mg/dL (74-106); Potassium 4.2 mmol/L (3.5-5.1); Sodium 141 mmol/L (136-145); Total Protein 7.4 g/dL (6.4-8.2)
[2024-03-27 13:29] LABS: Platelet Count 140 10^3/uL (130-400)
[2024-03-27 13:30] LABS: Diff Comment PLT Morph Reviewed; RBC Morphology Normal
[2024-03-27 13:32] LABS: Procalcitonin < 0.1 ng/mL
[2024-03-27 13:48] VITALS: TEMP 39.5
[2024-03-27] MEDS: ceFAZolin 2 GM/50 ML BAG IVPB (14:03)
[2024-03-27] MEDS: Ketorolac 15 MG/ML VIAL IVP (14:06)
[2024-03-27] MEDS: VANCOMYCIN/WATER (PEG) 1.5 GM/300 ML BAG IVPB (14:36)
[2024-03-27 14:52] VITALS: TEMP 38.5
[2024-03-27 15:34] VITALS: BP 126/59; PULSE 75; TEMP 36.4; O2SAT 99
[2024-03-27 15:36] VITALS: BP 126/59; PULSE 93; RESP 15; TEMP 38.5; O2SAT 99
== END 2024-03-27 15:37 | disposition home or self-care (01) ==
LOC: ER 14:37
PROVIDERS: Emergency Provider Physician Assistant; PCP Family Medicine
DX: L03.317 Cellulitis of buttock (principal); E11.9 Type 2 diabetes mellitus without complications; I10 Essential (primary) hypertension; E78.5 Hyperlipidemia, unspecified; Z86.711 Personal history of pulmonary embolism; Z86.718 Personal history of other venous thrombosis and embolism; Z79.01 Long term (current) use of anticoagulants; F17.210 Nicotine dependence, cigarettes, uncomplicated
CPT/HCPCS: 36415; 80053; 84145; 87040; 96365; 96375; 99284; 83605; 85025; J0690; J1885; J3372

== ENCOUNTER 2024-08-19 21:34 | Outpatient (REF) | payer MEDICAID, SELFPAY ==
[2024-08-19 16:29] LABS: ESR 25 mm/hr (0-15); HCT 39.7 % (40.0-50.0); MCH 29.2 pg (27.0-33.0); MCHC 32.7 % (32.0-36.0); MCV 89 fL (80-95); MPV 10.3 fL (8.0-11.0); Platelet Count 168 10^3/uL (130-400); RBC 4.45 10^6/uL (4.36-5.78); RDW 13.6 % (11.8-14.1); RDW-SD 44.6 fL; WBC 7.45 10^3/uL (4.4-10.8)
[2024-08-19 18:01] LABS: ALT 28 U/L (16-63); AST 19 U/L (15-37); Albumin 3.7 g/dL (3.4-5.0); Alkaline Phosphatase 101 U/L (46-116); Anion Gap 9.2 mmol/L (3-11); BUN 17 mg/dL (7-18); Bilirubin, Total 0.33 mg/dL (0.2-1.0); CO2 27.8 mmol/L (21.0-32.0); CREATININE 0.9 mg/dL (0.70-1.30); Calcium 9.4 mg/dL (8.5-10.1); Chloride 107 mmol/L (98-107); Glucose 130 mg/dL (74-106); Potassium 4.4 mmol/L (3.5-5.1); Sodium 144 mmol/L (136-145); TSH (W/Ref FT4) 0.26 uIU/mL (0.36-3.74); Total Protein 7.6 g/dL (6.4-8.2); Vitamin B12 405 pg/mL (193-986); Vitamin D 25 Total 18.4 ng/mL (30-100)
[2024-08-19 18:34] LABS: FREE T4 1.03 ng/dL (0.76-1.46)
--- OUTSIDE RECORDS SUMMARY | 2024-08-19 21:37 | XMS_ITS | Encounter Summary ---
Author Organization [facility] Address [address] [place] [address] Care Team Providers Care Game Developer Name Role Phone Unavailable Primary Care Provider Unavailabl e Encounter Details Date Type Department Care Team (Latest Contact Info) Description 02/03/2009 13:03 EDT - 02/18/2009 11:59 EDT Hospital Encounter [facility] - Map conversion [address] [place] [address] Uzma Campbell MD [address], [place] [id number] Discharge Disposition: Auto Discharge Social History Tobacco Use Types Packs/Day Years Used Date Smoking Tobacco: Never Assessed Sex and Gender Information Value Date Recorded Sex Assigned at Not on file Gender Identity Not on file Sexual Orientation Not on file documented as of this encounter Discharge Disposition Disposition Code Departure Means Destination Auto Discharge Home documented in this encounter Plan of Treatment Not on file documented as of this encounter Visit Diagnoses Not on filedocumented in this encounter
--- OUTSIDE RECORDS SUMMARY | 2024-08-19 21:37 | XMS_ITS | Encounter Summary ---
Author Organization [facility] Address [address] [place] [address] Care Team Providers Care Color Matcher Name Role Phone Unavailable Primary Care Provider Unavailabl e Encounter Details Date Type Department Care Team (Late st Contact Info) Description 02/28/2007 9:21 EDT - 02/28/2007 11:59 EDT Hospital Encounter [facility] [address] [place] [address] Sukumar Salgado, CHADD [address] [place] [address] [place] [id number] Discharge Disposition: Auto Discharge Social History Tobacco Use Types Packs/Day Years Used Date Smoking Tobacco: Never Assessed Sex and Gender Information Value Date Recorded Sex Assigned at Not on file Gender Identity Not on file Sexual Orientation Not on file documented as of this encounter Discharge Disposition Disposition Code Departure Means Destination Auto Discharge documented in this encounter Plan of Treatment Not on file documented as of this encounter Visit Diagnoses Not on filedocumented in this encounter
--- OUTSIDE RECORDS SUMMARY | 2024-08-19 21:37 | XMS_ITS | Encounter Summary ---
Author Organization [facility] Address [address] [place] [address] Care Team Providers Care Law Researcher Name Role Phone Uzma Campbell MD Primary Care Provider [phone] Encounter Details Date Type Department Care Team (Late st Contact Info) Description 02/28/2007 Before PRISM Converted Visit (Maple) [facility] - Maple conversion [address] [place] [address] Sukumar Salgado NP [address] [place] [address] [place] [address] Social History Tobacco Use Types Packs/Day Years Used Date Smoking Tobacco: Never Assessed Sex and Gender Information Value Date Recorded Sex Assigned at Not on file Gender Identity Not on file Sexual Orientation Not on file documented as of this encounter Progress Notes * Sukumar Salgado NP - 08/28/2009 0229 EST DIVISION OF HEMATOLOGY / ONCOLOGY PROGRESS/FOLLOWUP NOTE - 03/03/2007 February 282006 Uzma Campbell MD [address] [place] [address] RE: Derek Cristobal Dear Dr. Campbell: I had the pleasure of seeing Derek Cristobal in the Thrombosis and Hemostasis Program at [facility] today for continued recommendations for his idiopathic pulmonary embolism which occurred in . As you may recall, he had an idiopathic pulmonary embolism without any evidence of lower extremity DVT at the time of his diagnosis. He is vague on his family history, but there have amarjit number of fatal early cardiovascular events, as well as some family members who are chronically anticoagulated for unclear reasons. His young age, the idiopathic nature of his clotting event and his family history are suggestive of an underlying thrombophilia. We had arranged our visit today to assess for the appropriate thrombophilia testing after completing six months of anticoagulation. Apparently, Mr. Cristobal had some variable INRs and admits to some noncompliance in conjunction with apparently requiring a higher dose of warfarin to maintain an INR range of 2-3. Given this, I have recommended he receive an additional six months of anticoagulation with a goal INR of 2-and will return at the end of that time for consideration of discontinuation of therapy for thrombophilia testing. I forwarded a copy of [facility] office note for the details of our encounter. Thank you for your referral of this nice patient. I will plan to see him back in six months. Pleasecall me at [phone] if you have any questions regarding his care or our recommendations. Sincerely, Signed by Sukumar Salgado NP 03/05/2007 11:40 Jarrod Salgado NPAnddania Salgado NP Sukumar Salgado NP - CHADD Salgado P - lg Job ID: [id number] Document ID: [id number] cc: Uzma Campbell MD D: - Sukumar Salgado NP T: 7:31 P - lg Job ID: [id number] Document ID: [id number] cc: Uzma Campbell MD * Sukumar Salgado NP - 08/24/2009 1042 EST DIVISION OF HEMATOLOGY / ONCOLOGY PROGRESS/FOLLOWUP NOTE - 02/28/2007 PROBLEM LIST 1. Hypercoagulable state. a. 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 b. Treated with Lovenox and warfarin. c. Probable family history of thrombosis. 2. Chronic low back pain. 3. Anxiety and depression. SUBJECTIVE Mr. Cristobal returns to the Thrombosis and Hemostasis Program following our original consult in August 2006 for an idiopathic pulmonary embolism. His PE occurred in June 2006 and was treated with Lovenox as a bridge to warfarin. Our plan was to treat him with six months of anticoagulation andthen consider discontinuation of the anticoagulation for thrombophilia testing. At today's visit, he reports that until recently most of his INRs have been subtherapeutic in 1.1-1.5 range on coag checks. He wasrecently increased to 20 mg of warfarin a day and reports a recent elevation of his INR finally to a range of 1.9-2.3. He complains of some continued problems with shortness of breath, particularly with exertion. He is coughing in the morning. He smokes one and a half packs of cigarettes daily. He is having continuing problems with low back pain and is on Cymbalta and chronic narcotic analgesia. He is seeing a counselor every two weeks for management of stress. He also notes he hassome problems with diaphoresis, particularly with physical activity. He has had no bleeding while anticoagulated. He does note erythematous scaling patches on his extensor surfaces of his lower legs,which reportedly have been present since the onset of Coumadin. He is questioning allergy. There has been no other changes in his family history. MEDICATIONS 1. FiberCon daily. 2. Coumadin 15 mg on Sunday and and 20 mg other days. 3. Morphine 15 mg b.i.d. 4. Cymbalta 60 mg daily. 5. Hydrocodone/APAP 10/650, 1 t.i.d. p.r.n. REVIEW OF SYSTEMS Done with the symptom report form, reviewed verbally with the patient and placed on the chart for reference. He notes a 10-pound weight gain. He has some anxiety, depression and difficulty sleeping. He rates his low back pain at times 10/10. As above, he notes some shortness of breath and often hasbilateral ankle edema at the end of the day. He has fatigue, skin lesions as noted above. They are itchy at times. He has headaches. PHYSICAL EXAMINATION Vital signs: Temp 36.4, blood pressure 136/78, pulse 87, respiratory rate 16. His weight is 102.6 kg. Head, ears, eyes, nose and throat: Sclerae anicteric. Oral mucosa benign. Lungs: Clear to auscultation and percussion. Cardiac exam: Regular rate and rhythm. His abdomen is obese, softand nontenderwithout masses. Lower extremities are without edema. Skin: He has some generalized psoriasis. On the extensor surfaces of both lower legs, he has some discrete 1-cm faint salmon-colored plaques with scale. There are no discrete vesicles noted. IMPRESSION A 31-year-old man with a history of idiopathic pulmonary embolism in June 2006. He is reporting some variable INR readings, which are recently coming under better control. He admits to noncompliance several times weekly with his Coumadin. He apparently requires larger dosing of Coumadin to keep his INR in therapeutic range. RECOMMENDATIONS 1. I had originally scheduled our visit today so we could review his anticoagulation record, and ifadequate, stop therapy for 14 days and perform evaluation for inherited and acquired forms of thrombophilia. Given the fact that this was an idiopathic PE and he has had somewhat suboptimal therapy per his report, I have elected to continue him on anticoagulation for an additional six months and see him back at that time to complete our planned evaluation. I have counseled him on the need for compliance with his Coumadin and have provided him with a pill box to use as a reminder for his daily dosing. He seems compliant with reporting for weekly coag checks at [facility]. I have explained to him that there are variable responses to Coumadin dosing and some people do require doses in the range of 20 mg daily to keep the INR at a goal range of 2-3. 2. He has some lesions on his lower extremities that temporarily seem to be related to the onset ofwarfarin, but they look for eczematous to me. I cannot attribute this to Coumadin dosing and I havetaken the liberty of supplying him with a 60 gram tube of Kenalog 0.1% cream to use b.i.d. for the next several weeks to see if it improves. 3. I will see him back in six months. Signed by Sukumar Salgado NP 03/01/2007 11:40 Malik Villalba NP Sukumar Salgado NP - CHADD Salgado Mary Ann Haas LM Job ID: [id number] Document ID: [id number] cc: Uzma Campbell MD documented in this encounter Plan of Treatment Not on file documented as of this encounter Visit Diagnoses Not on filedocumented in this encounter Care Teams Law Researcher Relationship Specialty Start Date End Date Uzma Campbell MD [address] [place] [address] PCP - General 02/26/09 documented as of this encounter
--- OUTSIDE RECORDS SUMMARY | 2024-08-19 21:37 | XMS_ITS | Clinical Summary ---
Author Organization [facility] Address [address] [place] [address] Care Team Providers Care Education Department Chair Name Role Phone Uzma Campbell MD Primary Care Provider [phone] Social History Tobacco Use Types Packs/Day Years Used Date Smoking Tobacco: Never Assessed Sex and Gender Information Value Date Recorded Sex Assigned at Not on file Gender Identity Not on file Sexual Orientation Not on file Plan of Treatment Health Maintenance Due Date Last Done Comments Hepatitis C Screen 1975 Hepatitis B Vaccine (1 of 3 - 19+ 3-dose series) 07/29 COVID-19 Vaccine ( season) 2023 Care Teams Education Department Chair Relationship Specialty Start Date End Date Uzma Campbell MD [address] [place] [address] PCP - General 02/26/09
--- OUTSIDE RECORDS SUMMARY | 2024-08-19 21:37 | XMS_ITS | Encounter Summary ---
Author Organization [facility] Address [address] [place] [address] Care Team Providers Care Pipe Welder Name Role Phone Unavailable Primary Care Provider Unavailabl e Encounter Details Date Type Department Care Team (Late st Contact Info) Description 09/20/2007 12:59 EST Hospital Encounter [facility] [address] [place] [address] Sukumar Salgado, CHADD [address] [place] [address] [place] [address] Discharge Disposition: Auto Discharge Social History [...]
--- OUTSIDE RECORDS SUMMARY | 2024-08-19 21:37 | XMS_ITS | Encounter Summary ---
Author Organization [facility] [place] [address] Care Team Providers Care Production Line Manager Name Role Phone Uzma Campbell MD Primary Care Provider [phone] Encounter Details Date Type Department Care Team (Latest Contact Info) Description 03/26/2023 Travel Social History Tobacco Use Types Packs/Day Years Used Date Smoking Tobacco: Every Day Cigarettes 0.5 35 Smokeless Tobacco: Never Alcohol Use Standard Drinks/Week Comments Not Currently 0 (1 standard drink = 0.6 oz pur e alcohol) stopped 16 years ago Sex and Gender Information Value Date Recorded Sex Assigned at Not on file Gender Identity Not on file Sexual Orientation Not on file documented as of this encounter Plan of Treatment Not on file documented as of this encounter Visit Diagnoses Not on filedocumented in this encounter Care Teams Production Line Manager Relationship Specialty Start Date End Date Uzma Campbell MD [address] [place] [address] PCP - General Family Medicine 03/01/22 documented as of this encounter
--- OUTSIDE RECORDS SUMMARY | 2024-08-19 21:37 | XMS_ITS | Encounter Summary ---
Author Organization [facility] Address [address] [place] [address] Care Team Providers Care Welder Gas Automatic Name Role Phone Unavailable Primary Care Provider Unavailabl e Encounter Details Date Type Department Care Team (Late st Contact Info) Description 08/28/2008 9:24 EST Hospital Encounter [facility] [address] [place], [place] [address] Gerson Flynn MD [address] [facility] [address] [place] [address] Social History Tobacco Use Types Packs/Day Years Used Date Smoking Tobacco: Never Assessed Sex and Gender Information Value Date Recorded Sex Assigned at Not on file Gender Identity Not on file Sexual Orientation Not on file documented as of this encounter Plan of Treatment Not on file documented as of this encounter Procedures Procedure Name Priority Date/Time Associated Diagnosis Comments PROTEIN S ACTIVITY Routine 08/28/2008 11 :09 EST PROTEIN S ANTIGEN Routine 08/28/2008 11: 09 EST PROTEIN C ANTIGEN Routine 08/28/2008 11: 09 EST FACTOR 8 ASSAY Routine 08/28/2008 11:09 EST PROTEIN C ACTIVITY Routine 08/28/2008 11 :09 EST documented in this encounter Results * PROTEIN S CLOT (08/28/2008 11:09 EST) Protein S Activity 94 76 - 151 % [facility] Comment: a. 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 associated with oral anticoagulants, acute thrombotic events, , vitamin K deficiency, L-aspariginase treatment and inflammatory syndrome. ?? Deficiencies may or may not be present with liver disease and DIC. b. ??Results may be OVER-ESTIMATED in the presence of strong LA's (lupus anticoagulants), heparin levels greater than 2.0 IU/mL, and direct thrombin inhibitors such as hirudin or argatroban. c. ??Results may be UNDER-ESTIMATED by factor VIII levels greater than 250% or activated factors that would significantly shorten the aPTT. d. ??Results ARE NOT affected by the presence of activated Protein C Resistance (APC-R) or the Factor V Leiden mutation associated with APC-R. e. ??Acute illness and/or thrombosis may influence test results in an unpredictable manner, therefore results should be interpreted with caution in this setting. 08/28/2008 11:0 9 EST 08/28/2008 11:12 EST Gerson Flynn MD HEMATOLOGY & PF4 ORD ERABLES [facility] [address] [place] [address] * PROTEIN C CLOT (08/28/2008 11:09 EST) [facility] Protein C Clot 162 77 - 183 % [facility] Comment: A. Acquired protein C deficiencies are associated with ??liver disease, oral anticoagulants, acute thrombotic events and DIC. B. Results may be affected by plasma heparin levels greater than 1.0 U/ml C. Results may be affected by the presence of Lupus Anticoagulants, or factor VIII concentrations greater than 250%. ??Confirmation of the results by a functional, chromogenic assay may be useful in these circumstances D. Results are not affected by the presence of Activated Protein Resistance (APC-R) or the Factor V Leiden mutation associated with APC-R. E. ??Results may be overestimated in the presence of direct thrombin inhibitors such as Hirudin (Refludan) and Argatroban (Novastan). F. ??Acute illness and/or thrombosis may influence test results in an unpredictable manner, therefore results should be interpreted with caution in this setting. 08/28/2008 11:0 9 EST 08/28/2008 11:12 EST Gerson lFynn MD HEMATOLOGY & PF4 ORD ERABLES Performing Organization Address City/[facility] Co de Phone Number [facility] [address] [place] [address] * PROTEIN S ANTIGEN (08/28/2008 11:09 EST) Protein S Ag, Free 117Reference range: 65 to 160 Unit: % Performed or Referred by: [facility] Dpt of Lab Med and Path, [address] ?? [place] [address], Lab Dir: MD [facility] 08/28/2008 11:0 9 EST 08/28/2008 11:12 EST Gerson Flynn MD HEMATOLOGY & PF4 ORD ERABLES Performing Organization Address [facility] de Phone Number [facility] [address] [place] [address] * (ABNORMAL) PROTEIN C ANTIGEN (08/28/2008 11:09 EST) Protein C Antigen 133Reference range: 60 to 125 Unit: % Performed or Referred by: [facility] Dpt of Lab Med and Path, [address] ?? [place] [address], Lab Dir: Leobardo Nicole III, MD(H) [facility] 08/28/2008 11:0 9 EST 08/28/2008 11:12 EST Gerson Flynn MD HEMATOLOGY & PF4 ORD ERABLES Performing Organization Address City/[facility] Co de Phone Number [facility] [address] [place] [address] * (ABNORMAL) FACTOR 8 ASSAY (08/28/2008 11:09 EST) Factor 8 Assay 308(H) 61 - 192 % [facility] 08/28/2008 11:0 9 EST 08/28/2008 11:12 EST Gerson Flynn MD HEMATOLOGY & PF4 ORD ERABLES Performing Organization Address City/State/[facility] Co de Phone Number [facility] [place] [phone] documented in this encounter Visit Diagnoses Not on filedocumented in this encounter
--- OUTSIDE RECORDS SUMMARY | 2024-08-19 21:37 | XMS_ITS | Referral Summary ---
Author Organization [facility] Address [address] [place] [address] Care Team Providers Care Ramp Service Man Name Role Phone Uzma Campbell MD Primary Care Provider [phone] Social History Tobacco Use Types Packs/Day Years Used Date Smoking Tobacco: Never Assessed Sex and Gender Information Value Date Recorded Sex Assigned at Not on file Gender Identity Not on file Sexual Orientation Not on file Plan of Treatment Not on file Care Teams Ramp Service Man Relationship Specialty Start Date End Date Uzma Campbell MD [address] [place] [id number] PCP - General 02/26/09
--- OUTSIDE RECORDS SUMMARY | 2024-08-19 21:37 | XMS_ITS | Encounter Summary ---
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 Adriana Chacon APRN [address] [place] [address] [place] [address] [facility] Maxillo Surg [address] [place] [phone] Referral ID Status Reason Start Date Expiration Date V isits Requested Visits Authorized [id number] Closed Consult, Test & Treat 07/13/2022 07/13/2023 1 1 Encounter Details Date Type Department Care Team (Late st Contact Info) Description 07/13/2022 Transcribe Orders eDH Incoming Referrals [phone] Adriana Chacon APRN [address] [place] [address] [address] [place] [phone] Oral fistula Social History Tobacco Use Types Packs/Day Years [...] as of this encounter Plan of Treatment Scheduled Referrals Name Type Priority Associated Diagnoses Order Schedule Referral to Maxillofacial Surgery Outpatient Referral Routine Oral fistula Ordered: 07/13/2022 documented as of this encounter Visit Diagnoses Diagnosis Oral fistula Cellulitis and abscess of oral soft tissues documented in this encounter Care Teams Thread Roller Relationship Specialty Start Date End Date Uzma Campbell MD [address] [place] [address] PCP - General Family Medicine 03/01/22 documented as of this encounter
--- OUTSIDE RECORDS SUMMARY | 2024-08-19 21:37 | XMS_ITS | Encounter Summary ---
Author Organization [facility] [place] [address] Care Team Providers Care Plant Floor Automation Manager Name Role Phone Uzma Campblel MD Primary Care Provider [phone] Encounter Details Date Type Department Care Team (Late st Contact Info) Description 05/09/2023 Ancillary Procedure Radiology at [facility] [address] [place] [phone] Jennifer Becerril MD [address] [facility] [place] [address] Social History Tobacco Use Types Packs/Day Years [...] Procedure Name Priority Date/Time Associated Diagnosis Comments FILM LIBRARY STORAGE ONLY DX SPINE Routine 05/09/2023 12:00 AM EDT documented in this encounter Results * Film Library- Storage Only DX Spine (05/09/2023 12:00 AM EDT) Narrative [facility] - 06/07/2023 9:44 PM EDT This exam is auto-finalizing. It's purpose is for storage only. Jennifer Becerril MD IMG FILM LIBRARY ORDERABLES [facility] [place], [place] documented in this encounter Visit Diagnoses Not on filedocumented in this encounter Care Teams Plant Floor Automation Manager Relationship Specialty Start Date End Date Uzma Campbell MD [address] [place] [address] PCP - General Family Medicine 03/01/22 documented as of this encounter
--- OUTSIDE RECORDS SUMMARY | 2024-08-19 21:37 | XMS_ITS | Encounter Summary ---
Author Organization [facility] Address [address] [place] [address] Care Team Providers Care Wellness Program Administrator Name Role Phone Uzma Campbell MD Primary Care Provider [phone] Encounter Details Date Type Department Care Team (Late st Contact Info) Description 06/14/2006 Before PRISM Converted Visit (Maple) [facility] - Maple conversion [address] [place] [address] Alyssia Hayden MD [address] [place], [place] [address] [place] [phone] Social History Tobacco Use Types Packs/Day Years Used Date Smoking Tobacco: Never Assessed Sex and Gender Information Value Date Recorded Sex Assigned at Not on file Gender Identity Not on file Sexual Orientation Not on file documented as of this encounter Procedure Notes * Vineet, Conv Video Poker Floorman - 10/15/2009 1431 EST DIVISION OF PAIN MANAGEMENT PROCEDURE REPORT SERVICE DATE: 06/14/2006 TIMEKEEPER SUPERVISOR: Mckenzie Phillips MD SENIOR COMPLIANCE ANALYST: Alyssia Hayden MD PROCEDURE: Left sacroiliac joint injection. PREPROCEDURE DIAGNOSIS: Left axial low back pain and left sacroiliac joint pain. POSTPROCEDURE DIAGNOSIS: Left axial low back pain and left sacroiliac joint pain. HISTORY OF PRESENT ILLNESS: Mr. Cristobal is a very pleasant gentleman who was referred to see us by NADINE Gates from the [facility],for persistent axial low back pain with sacroiliac joint pain. He was referred to us for a left sacroiliac joint injection, and currently remains on hydrocodone b.i.d. for breakthrough pain. He has taken an oral course of steroids in the pastwithout significant relief, and he currently remains on Neurontin 1 pill b.i.d. He is taking aspirin 325 mg p.o. b.i.d. as well. Currently, he describes his pain as achy and mechanical in nature, worse with weightbearing and stooping, mainly in the left lower lumbar region without significant radiation. He does admit to pain in his left gluteal region as well. No weakness, numbness or tingling in his lower extremities, and no radiation to his upper region. CURRENT MEDICATIONS: As per HPI. ALLERGIES: No known drug allergies. REVIEW OF SYSTEMS: No fevers, chills. No unexplained change in weight and no rashes and no bladder or bowel symptoms. PHYSICAL EXAMINATION: Height 5 feet 10 inches. Weight 215 pounds. Blood pressure 121/78, pulse 71, respirations 16, temperature 97.7. In general, pleasant, healthy-appearing gentleman, cooperative and with normal build. Musculoskeletal: Mild tenderness over the left lumbar paraspinal musculature. Full range of motion on flexion and extension. Facetogenic maneuvers positive to the left. Muscular strength 5/5 in all muscle groups. Sensory grossly intact over the lower extremities. Deep tendon reflexes are 2+ and equal, and normal gait. DIAGNOSTIC IMAGING: He was seen by NADINE Gates most recently approximately a few days ago, and at that time, MRI was reviewed of the lumbar and thoracic spine which showed signs of diffuse diskdegeneration at L2-3, L4PA, and L5-1. There was a left midline slight disk bulge without nerve rootimpeachment at L5- S1. At L4-5, there was a left midline border disk herniation. The thoracic spine was unremarkable except for a blocked vertebral body at C6-7. AP lateral flexion films of the lower lumbosacral spine showed a scoliotic curve with left convexity and a transitional sacralized vertebral body at L5, with a broad transverse process on the left. Sacroiliac joints were unremarkable. There were nosigns of facet arthropathy. The L5 appeared fused. IMPRESSION: Axial back pain, mechanical in nature, with possible sacroiliac joint disfunction. RECOMMENDATIONS: 1. Will proceed with a left sacroiliac joint injection. The patient was given the risks and benefits of this procedure in detail. 2. He is to follow up with us in 4-6 weeks and, if this fails to give him significant relief, wouldrecommend proceeding with medial branch blocks of the left L4-5 and sacral ala. 3. He may continue his medical management. 4. He is to follow up with NADINE Gates as scheduled. PROCEDURE NOTE: After written and informed consent was obtained, the patient was brought to the fluoroscopy suite and placed prone on the fluoroscopy table. The lumbosacral region was then prepped and draped with Hibiclens solution and sterile towels. Then, the skin and subcutaneous tissues were anesthetized using 2 cc of 2% lidocaine with a 27-gauge needle. Then, a 22-gauge, 3-1/2-inch spinal needle was gradually inserted andintroduced to the inferior aspect of the sacroiliac joint under fluoroscopic guidance. After entering the joint capsule and reproducing the patient's painful symptoms, albeit briefly, 80 mg of Depo- Medrol was inserted overlying the joint, followed by 1.5cc of 0.25% bupivacaine without pressure paresthesias. Postprocedure vital signs were 153/97 with a pulse of 74. The needle was withdrawn and a sterile bandage was placed. After a period of monitoring, Derek was discharged from our clinic ambulatory and in the company of the professional driver, and had tolerated the procedure well. Dr. Mckenzie Phillips was present and participated in all parts of the examination. Signed by Mckenzie Phillips MD 06/27/2006 10:26 Armida Edge MDTiffini Lake, MD Dictated by: Alyssia Hayden MD Mckenzie Phillips MD - Alyssia Hayden MD A - [facility] Job ID: [id number] Document ID: [id number] cc: NADINE Major PA Job ID: [id number] Document ID: [id number] cc: NADINE Major PA documented in this encounter Plan of Treatment Not on file documented as of this encounter Visit Diagnoses Not on filedocumented in this encounter Care Teams Wellness Program Administrator Relationship Specialty Start Date End Date Uzma Campbell MD [address] [place] [id number] PCP - General 02/26/09 documented as of this encounter
--- OUTSIDE RECORDS SUMMARY | 2024-08-19 21:37 | XMS_ITS | Encounter Summary ---
Author Organization [facility] [place] [address] Care Team Providers Care Casino Investigator Name Role Phone Uzma Campbell MD Primary Care Provider Encounter Details Date Type Department Care Team (Late st Contact Info) Description 05/30/2023 Ancillary Procedure Radiology at [facility] [address] [place] [phone] Jennifer Becerril MD [address] [place] [address] Social History Tobacco Use Types Packs/Day Years [...] Associated Diagnosis Comments FILM LIBRARY STORAGE ONLY MR HEAD Routine 05/30/2023 12:00 AM EDT documented in this encounter Results * Film Library- Storage Only MR Head (05/30/2023 12:00 AM EDT) Narrative DH RAD - 06/07/2023 9:47 PM EDT This exam is auto-finalizing. It's purpose is for storage only. Jennifer Becerril MD IMG FILM LIBRARY ORDERABLES DH [place], [place] documented in this encounter Visit Diagnoses Not on filedocumented in this encounter Care Teams Casino Investigator Relationship Specialty Start Date End Date Uzma Campbell MD [address] [place] [address] PCP - General Family Medicine 03/01/22 documented as of this encounter
--- OUTSIDE RECORDS SUMMARY | 2024-08-19 21:37 | XMS_ITS | Encounter Summary ---
Author Organization [facility] [place] [address] Care Team Providers Care Can Piler Name Role Phone Uzma Campbell MD Primary Care Provider [phone] Encounter Details Date Type Department Care Team (Late st Contact Info) Description 05/30/2023 12:05 AM EDT Ancillary Procedure Radiology at [facility] [address] [facility] [place] [phone] Jennifer Becerril MD [address] [place] [address] Social History Tobacco Use Types Packs/Day Years [...] Diagnosis Comments FILM LIBRARY STORAGE ONLY MR SPINE Routine 05/30/2023 12:05 AM EDT documented in this encounter Results * Film Library- Storage Only MR Spine (05/30/2023 12:05 AM EDT) Narrative DH RAD - 06/07/2023 9:48 PM EDT This exam is auto-finalizing. It's purpose is for storage only. Jennifer Becerril MD IMG FILM LIBRARY ORDERABLES DH [place], [place] documented in this encounter Visit Diagnoses Not on filedocumented in this encounter Care Teams Can Piler Relationship Specialty Start Date End Date Uzma Campbell MD [address] [place] [address] PCP - General Family Medicine 03/01/22 documented as of this encounter
--- OUTSIDE RECORDS SUMMARY | 2024-08-19 21:37 | XMS_ITS | Encounter Summary ---
Author Organization [place] [address] Care Team Providers Care Xm1 Tank Driver Name Role Phone Uzma Campbell MD Primary Care Provider [phone] Reason for Referral * Consultation (Routine) - Closed Specialty Diagnoses / Procedures Referred By Contsean t Referred To Contact Plastic Surgery Diagnoses Oral-nasal fistula Sinus disorder Fracture of orbital floor, right side, sequela Uzma Campbell MD [address] [place] [address] [facility] [address] [place] [phone] Referral ID Status Reason Start Date Expiration Date V isits Requested Visits Authorized [id number] Closed Consult, Test & Treat PCP Updated and/or Approved 10/31/2022 10/31/2023 12 12 Encounter Details Date Type Department Care Team (Latest Contact Info) Description 10/31/2022 Transcribe Orders eDH Incoming Referrals [phone] Uzma Campbell MD [address] [place] [id number] Oral-nasal fistula; Sinus disorder; Fracture of orbital floor, right side, sequela Social History Tobacco Use Types Packs/Day Years [...] Scheduled Referrals Name Type Priority Associated Diagnoses Orde r Schedule Referral to Plastic Surgery Outpatient Referral Routine Oral-nasal fistula Sinus disorder Fracture of orbital floor, right side, sequela Ordered: 10/31/2022 documented as of this encounter Visit Diagnoses Diagnosis Oral-nasal fistula Cleft palate, unspecified Sinus disorder Unspecified sinusitis (chronic) Fracture of orbital floor, right side, sequela documented in this encounter Care Teams Xm1 Tank Driver Relationship Specialty Start Date End Date Uzma Campbell MD [address] [place] [address] PCP - General Family Medicine 03/01/22 documented as of this encounter
--- OUTSIDE RECORDS SUMMARY | 2024-08-19 21:37 | XMS_ITS | Encounter Summary ---
Author Organization [place] [address] Care Team Providers Care Clerk Television Production Name Role Phone Uzma Campbell MD Primary Care Provider Encounter Details Date Type Department Care Team (Late st Contact Info) Description 05/09/2023 12:05 AM EDT Ancillary Procedure Radiology at [facility] [address] [place] [phone] Jennifer Becerril MD [address] [place] [address] Social History Tobacco Use Types Packs/Day Years [...] Diagnosis Comments FILM LIBRARY STORAGE ONLY DX PELVIS Routine 05/09/2023 12:05 AM EDT documented in this encounter Results * Film Library- Storage Only DX Pelvis (05/09/2023 12:05 AM EDT) Narrative DH RAD - 06/07/2023 9:45 PM EDT This exam is auto-finalizing. It's purpose is for storage only. Jennifer Becerril MD IMG FILM LIBRARY ORDERABLES DH [place], [place] documented in this encounter Visit Diagnoses Not on filedocumented in this encounter Care Teams Clerk Television Production Relationship Specialty Start Date End Date Uzma Campbell MD [address] [place] [address] PCP - General Family Medicine 03/01/22 documented as of this encounter
--- OUTSIDE RECORDS SUMMARY | 2024-08-19 21:37 | XMS_ITS | Encounter Summary ---
Author Organization [facility] Address [address] [place] [address] Care Team Providers Care Vp Analytics Name Role Phone Uzma Campbell MD Primary Care Provider [phone] Encounter Details Date Type Department Care Team (Late st Contact Info) Description 01/10/2006 Before PRISM Converted Visit (Maple) [facility] - Maple conversion [address] [place], [place] [address] He Beaulieu MD [address] [place] [address] [place] [address] Social History Tobacco Use Types Packs/Day Years Used Date Smoking Tobacco: Never Assessed Sex and Gender Information Value Date Recorded Sex Assigned at Not on file Gender Identity Not on file Sexual Orientation Not on file documented as of this encounter Progress Notes * He Beaulieu MD - 08/27/2009 1645 EST [facility] [place] [facility] [address] [facility] [address] [facility] [address] January 10, 2007 [facility] [address] [place] [address] To Whom It May Concern: We have received a letter dated January 07, 2007 regarding Mr. Derek Cristobal asking for an assessment of his functional capabilities. We will not be able to fill this form out with the current information we have. If it is necessary to have this degree of information, I would recommend a FunctionalCapacity Evaluation which we would be happy to order. This can be performed at any physical therapysite close to his home. Sincerely, Signed by He Beaulieu MD 01/14/2007 11:50 Bobby Beaulieu, MDRobert Anel Beaulieu MD He Beaulieu MD - He Beaulieu MD A - [facility] Job ID: [id number] Document ID: [id number] cc: NADINE Torrez [employer], [address]* Mr. Derek Cristobal, [address], [place] [address]* Document ID: [id number] cc: NADINE Torrez [address] [employer], [address]* Mr. Derek Cristobal, [address], [place], [place] * documented in this encounter Plan of Treatment Not on file documented as of this encounter Visit Diagnoses Not on filedocumented in this encounter Care Teams Vp Analytics Relationship Specialty Start Date End Date Uzma Campbell MD [address] [place] [id number] PCP - General 02/26/09 documented as of this encounter
--- OUTSIDE RECORDS SUMMARY | 2024-08-19 21:37 | XMS_ITS | Encounter Summary ---
Author Organization [facility] Address [address] [place] [address] Care Team Providers Care Model Maker Name Role Phone Uzma Campbell MD Primary Care Provider Encounter Details Date Type Department Care Team (Late st Contact Info) Description 09/20/2007 Before PRISM Converted Visit (Maple) [facility] - Maple conversion [address] [place] [address] Sukumar Salgado NP [address] [place] [address] [place] [address] Social History Tobacco Use Types Packs/Day Years Used Date Smoking Tobacco: Never Assessed Sex and Gender Information Value Date Recorded Sex Assigned at Not on file Gender Identity Not on file Sexual Orientation Not on file documented as of this encounter Progress Notes * Sukumar Salgado NP - 09/01/2009 1230 EST DIVISION OF HEMATOLOGY / ONCOLOGY PROGRESS/FOLLOWUP NOTE - 09/20/2007 PROBLEM LIST 1. Hypercoagulable syndrome. a. 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 b. Treated with Lovenox and warfarin. c. Probable family history of thrombosis. d. Negative lower extremity duplex scan at time of diagnosis. 2. Chronic low back pain. 3. Anxiety and depression. SUBJECTIVE Mr. Cristobal returns to the thrombosis and hemostasis program a discussion of thrombophilia testing.He was initially seen here in August of 2006 for consideration of thrombophilia testing due to anidiopathic PE. When I saw him in follow up after completing six-months of warfarin to consider thrombophilia testing, he had evidence of multiple subtherapeutic INRs due to compliance issues and I recommended an additional six months of anticoagulation. He returns today with a copy of his anticoagulation record, which shows evidence listed at approximately 75% of his INRs in therapeutic or close to therapeutic range. He is noted to have a family history of a paternal grandfather and a fathers uncle both on anticoagulation for unclear reasons. In the interim since his last visit, his fatheraunt who is in her 70s, has developed a extremity clotting event and is now anticoagulated as well. Derek has had some problems with minimal shortness of breath and wheezing for which he is now receiving an inhaler at bedtime which provides him with some benefit. He has had some very scant rectal bleeding while anticoagulated, which he attributes to constipation from chronic narcotics taken for low-back pain. He has had no significant changes in his health care. CURRENT MEDICATIONS 1. Coumadin 10 mg on Sunday and and 15 mg on Sunday, Sunday, Sunday, Sunday and Sunday, discontinued today. 2. Percocet p.r.n. 3. Inhaler nightly, unable to name. REVIEW OF SYSTEMS Done with the symptom report form, reviewed verbally with the patient and placed on the chart for reference. He complains of chronic low back and leg pain. He also has leg cramping on occasion. is making a conscious effort to reduce his weight that he has actually gained since his last visit. PHYSICAL EXAMINATION Vital signs: Temp 35.7, blood pressure 142/87, pulse 75, respiratory rate 16. His weight is 104.1kg. Lungs: Clear to auscultation and percussion. Cardiac exam: Regular rate and rhythm. Lower extremities: No erythema, warmth, cords or edema. He has chronic scaly appearing small plaques on the pretibial areas bilaterally and secondary excoriation from scratching. LABORATORY DATA The Coumadin flow sheet form [facility] was reviewed and placed on the chart for reference. IMPRESSION A 32-year-old man with a history of idiopathic pulmonary embolism has completed one year of anticoagulation with improved compliance and INR regulation over the past six months. He has a history of several family members who are chronically anticoagulated, although he is a bit vague on their history. There has been recent development of a paternal great aunt with DVT. Theidiopathic nature of his clotting event and his family history are suggestive of thrombosis in this young individual. PLAN 1. Mr. Cristobal has completed over a year of anticoagulation for his PE, and at this point I have asked him to discontinue his warfarin. 2. He will return to [facility] on October 07, 2007, for a thrombosis panel. This will include factor V Leiden, [id number], factor VIII, and an evaluation of deficiencies ofantithrombin, protein C and S. We will also check a d dimer and repeat his PT and PTT, as well as a lupus anticoagulant and cardiolipin antibody testing. 3. He will return to visit with Gerson Flynn MD, two weeks after his thrombophilia testing for a discussion of results and consideration of reinstituting anticoagulation. 4. I have carefully reviewed the signs and symptoms of recurrent thrombosis. He is to promptly seekmedical attention should he develop any worsening shortness of breath, pleuritic chest pain, or extremity erythema, warmth, pain, or edema between now and his next visit. 5. I will see him back in early October 2007. Signed by Sukumar Salgado NP 09/23/2007 12:50 Sukumar Salgado NP - Sukumar Salgado NP - nathanael Job ID: [id number] Doc ID: [id number] cc: Gerson Flynn MD [facility]* D: - Sukumar Salgado NP - nathanael Job ID: [id number] Doc ID: [id number] cc: Gerson Flynn MD [facility]* documented in this encounter Plan of Treatment Not on file documented as of this encounter Visit Diagnoses Not on filedocumented in this encounter Care Teams Model Maker Relationship Specialty Start Date End Date Uzma Campbell MD [address] [place] [address] PCP - General 02/26/09 documented as of this encounter
--- OUTSIDE RECORDS SUMMARY | 2024-08-19 21:37 | XMS_ITS | Encounter Summary ---
Author Organization [facility] Address [facility] [place] [address] Care Team Providers Care Physical Security Engineer Name Role Phone Uzma Campbell MD Primary Care Provider [phone] Reason for Visit * Reason Comments Follow Up Surgery Encounter Details Date Type Department Care Team (Late st Contact Info) Description 03/14/2022 9:40 AM EDT Office [place] [address] Brigitte Lamas APRN [facility] [place] [address] Surgery follow-up Social History Tobacco Use Types Packs/Day Years [...] as of this encounter Progress Notes * Brigitte Lamas APRN - 03/14/2022 9:40 AM EDT Plastic Surgery Post Op Note Provider: Brigitte Lamas APRN Reason for visit: F/U status post procedure; wound check and suture removal Date of surgery: 03/07/22 Procedure(s): ZMC and right orbit floor repair (Nigriny) Complications: None reported HPI: Pt reports he's doing okay. He is not back on his blood thinners. He has an appointment with his PCP in a couple of days to discuss this. He notes that his vision is blurry and has not been using any ointments, this is unchanged since surgery. No diplopia. Examination: Patient is alert, conversant, comfortable, ambulating EOMI Incision: CDI, healing well. Suture's removed today. No ectropion. No entropion. No collection, no erythema, no evidence of cellulitis. Some numbness of right forehead. Symmetric brow elevation. Impression: Derek Cristobal is a 46 y.o. male who was seen today for follow up. Healing to be as expected. Discussed that I recommend he see an cash specialist. [facility] discuss with his P[facility] later this week. Plan: Follow up: 3 months. He will follow up with his PCP regarding anticoagulation and an cash specialist closer to his home. I, Octavia Caba, have performed the documentation for this encounter in the presence of and acting as a scribe for BRIGITTE LAMAS APRN. I performed the services which were documented by the scribe, and I agree with the accuracy of the documentation in this encounter. BRIGITTE LAMAS APRN documented in this encounter Plan of Treatment Not on file documented as of this encounter Visit Diagnoses Diagnosis Surgery follow-up Follow-up examination, following unspecified surgery documented in this encounter Care Teams Physical Security Engineer Relationship Specialty Start Date End Date Uzma Campbell MD [address] [place] [address] PCP - General Family Medicine 03/01/22 documented as of this encounter
--- OUTSIDE RECORDS SUMMARY | 2024-08-19 21:37 | XMS_ITS | Encounter Summary ---
Author Organization [facility] Address [address] [place] [address] Care Team Providers Care Bar Machine Operator Multiple Spindle Name Role Phone Unavailable Primary Care Provider Unavailabl e Encounter Details Date Type Department Care Team (Latest Contact Info) Description 06/14/2006 15:15 EDT Hospital Encounter [facility] - Map conversion [address] [place] [address] Mckenzie Phillips MD [address] [place] [address] [place] [phone] Discharge Disposition: Auto Discharge Social History Tobacco [...]
--- OUTSIDE RECORDS SUMMARY | 2024-08-19 21:37 | XMS_ITS | Encounter Summary ---
Author Organization [facility] [place] [address] Care Team Providers Care Applications Support Engineer Name Role Phone Uzma Campbell MD Primary Care Provider [phone] Reason for Referral * Consultation (Routine) - Closed Specialty Diagnoses / Procedures Referred By Contsean t Referred To Contact Neurology Diagnoses History of traumatic brain injury Uzma Campbell MD [address] [place] [address] [facility] Neu[facility] [address] [place] [id number] Referral ID Status Reason Start Date Expiration Date V isits Requested Visits Authorized [id number] Closed Consult, Test & Treat PCP Updated and/or Approved 06/13/2023 06/12/2024 6 6 Encounter Details Date Type Department Care Team (Latest Contact Info) Description 06/13/2023 Transcribe Orders eDH Incoming Referrals [phone] Uzma Campbell MD [address] [place] [phone] History of traumatic brain injury Social History Tobacco Use Types Packs/Day Years [...] Associated Diagnoses Orde r Schedule Referral to Neurology Outpatient Referral Routine History of traumatic brain injury Ordered: 06/13/2023 documented as of this encounter Visit Diagnoses Diagnosis History of traumatic brain injury Personal history of traumatic brain injury documented in this encounter Care Teams Applications Support Engineer Relationship Specialty Start Date End Date Uzma Campbell MD [address] [place] [address] PCP - General Family Medicine 03/01/22 documented as of this encounter
--- OUTSIDE RECORDS SUMMARY | 2024-08-19 21:37 | XMS_ITS | Encounter Summary ---
Author Organization [facility] Address [address] [place] [address] Care Team Providers Care Environmental Laboratory Technician Name Role Phone Unavailable Primary Care Provider Unavailabl e Encounter Details Date Type Department Care Team (Late st Contact Info) Description 06/11/2006 13:54 EDT Hospital Encounter [facility] conversion [address] [place] [address], [place] [id number] He Mayorga PA-C [address] [facility] [place] [address] Discharge Disposition: Auto Discharge Social History Tobacco [...] Procedure Name Priority Date/Time Associated Diagnosis Comments L SPINE 2-3 VIEWS 06/11/2006 14: 54 EDT documented in this encounter Results * L SPINE 2-3 VIEWS (06/11/2006 14:54 EDT) Anatomical Region Laterality Modality Other 06/11/2006 14:5 4 EDT Narrative 05/08/2009 12:58 EDT BACK PAIN. R/O INSTABILITY. 3 VIEW LUMBAR SPINE: ??06/11/06 HISTORY: ??Back pain. ??No comparisons. Upright AP, and flexion/extension lateral views were obtained. ??The patient has a mild left-convex scoliosis in the mid-lumbar spine. There is disc space narrowing at L1-2 with slight wedging of the L1 vertebral body. ??The L2-3 disc space is also probably slightly narrowed. ??Small anterior and posterior osteophytes are present throughout the lumbar spine. ??There is probably facet arthropathy at L5-S1. ??S1 is partially lumbarized. ??There is no evidence of listhesis with either flexion or extension. IMPRESSION: 1. ? Degenerative disc disease at L1-2. 2. ? Facet arthropathy at L5-S1. D: ??06/12/06 T: ??06/13/06 / Procedure Note Chepe Reyes MD - 05/08/2009 BACK PAIN. R/O INSTABILITY. 3 VIEW LUMBAR SPINE: 06/11/06 HISTORY: Back pain. No comparisons. Upright AP, and flexion/extension lateral views were obtained. The patient has a mild left-convex scoliosis in the mid-lumbar spine. There is disc space narrowing at L1-2 with slight wedging of the L1 vertebral body. The L2-3 disc space is also probably slightly narrowed. Small anterior and posterior osteophytes are present throughout the lumbar spine. There is probably facet arthropathy at L5-S1. S1 is partially lumbarized. There is no evidence of listhesis with either flexion or extension. IMPRESSION: 1. Degenerative disc disease at L1-2. 2. Facet arthropathy at L5-S1. He Mayorga PA-C [facility] NG ORDERABLES documented in this encounter Visit Diagnoses Not on filedocumented in this encounter
--- OUTSIDE RECORDS SUMMARY | 2024-08-19 21:37 | XMS_ITS | Clinical Summary ---
Author Organization [facility] Address [facility] [place] [address] Care Team Providers Care Courtesy Car Driver Name Role Phone Uzma Campbell MD Primary Care Provider [phone] Allergies No known active allergies Medications Medication Sig Dispensed Refills Start Date End Date Status atorvastatin (Lipitor) 20 mg Tablet Take 20 mg by mouth nightly. 11/25/2021 Active lisinopriL (Zestril) 10 mg Tablet Take 10 mg by mouth daily. 11/25/2021 Active gabapentin (Neurontin) 300 mg Capsule Take 300 mg by mouth 3 times daily. 10/28/2021 Active cyclobenzaprine (Flexeril) 10 mg Tablet Take 10 mg by mouth 2 times daily as needed. 11/24/2021 Active methadone HCl (METHADONE ORAL) Take 110 mg by mouth daily. Active Eliquis 5 mg Tablet Take 1 tablet by mouth 2 times daily. 03/09/2022 Active Additional Information Patient not taking.Reported on 03/14/2022 Active Problems No known active problems Social History Tobacco Use Types Packs/Day Years Used Date Smoking Tobacco: Every Day Cigarettes 0.5 35 Smokeless Tobacco: Never Alcohol Use Standard Drinks/Week Comments Not Currently 0 (1 standard drink = 0.6 oz pur e alcohol) stopped 16 years ago Sex and Gender Information Value Date Recorded Sex Assigned at Not on file Gender Identity Not on file Sexual Orientation Not on file Last Filed Vital Signs Vital Sign Reading Time Taken Comments Blood Pressure 153/106 03/07/2022 11:10 AM EDT Pulse 74 03/07/2022 6:12 AM EDT Temperature 37.1 ??C (98.8 ??F) 03/07/2022 10:40 AM E DT Respiratory Rate 16 03/07/2022 11:10 AM EDT Oxygen Saturation 96% 03/07/2022 11:20 AM EDT Inhaled Oxygen Concentration - - Weight 81.6 kg (180 lb) 03/07/2022 6:12 AM EDT Height 175.3 cm (5' 9) 03/07/2022 6:12 AM EDT Body Mass Index 26.58 03/07/2022 6:12 AM EDT Plan of Treatment Health Maintenance Due Date Last Done Comments CT Colonography 1975 Colonoscopy 1975 Colorectal Cancer Screening 1975 FIT DNA 1975 FIT 1975 Sigmoidoscopy (10 year) with FIT yearly 1975 Sigmoidoscopy 1975 Pneumococcal Vaccine: At-Risk 5-64yrs (1 of 2 - PCV) 1 HIV screen 1993 Hepatitis C Screening 1993 Hepatitis B vaccine (0-59 yrs) (1) 1994 Tetanus/Diphtheria/Pertussis Vaccines (1 - Tdap) 07/29 Diabetes Screening (HgbA1C or Glucose) 2015 Covid-19 Vaccine (1 - 2022-24 season) 2024 Influenza (Flu) vaccine (1 o f 1 - Influenza standard series) 06/22/2024 Medical Devices Implanted Type Area Automatic Screwmaker Device Identifier Shelf Expiration Date Model / Serial / Lot Mesh Cmf [id number] Cranium Pgla Delta ([id number]) (Autoreq) - [id number] Implanted:Qty : 1 on 03/07/2022 by Jn Linn MD at [facility] IMPLANTS Right: [employer] RORY 04/21/2023 [id number] / / [id number] Plate Cmf 1.7mm Midface Curved 6 Hole Gold Ti Leibinger ([id number]) - [id number] Implanted:Qty : 1 on 03/07/2022 by Jn Linn MD at [facility] IMPLANTS Right: [employer] - RORY [id number] / / Plate Cmf 0.6mm Midface Straight 4 Hole Gold Ti Leibinger ([id number]) - [id number] Implanted:Qty : 1 on 03/07/2022 by Jn Linn MD at [facility] IMPLANTS Right: [employer] - RORY [id number] / / Plate Cmf 0.55mm Midface 24 Hole Blue Ti Leibinger ([id number]) - [id number] Implanted:Qty : 1 on 03/07/2022 by Jn Linn MD at [facility] IMPLANTS Right: [employer] - RORY [id number] / / Screw Cmf 1.9x5mm Midface Self Tapping Non Locking [place] Ti ([id number]) - [id number] Implanted:Qty : 1 on 03/07/2022 by Jn Linn MD at [facility] IMPLANTS Right: [employer] - RORY [id number] / / Screw Cmf 1.7x3mm Upper Face Self Tapping Non Locking Gold ([id number]) - [id number] Implanted:Qty : 1 on 03/07/2022 by Jn Linn MD at [facility] IMPLANTS Right: [employer] - RORY [id number] / / Screw Cmf 1.7x5mm Upper Face Self Tapping Non Locking Gold ([id number]) - [id number] Implanted:Qty : 18 on 03/07/2022 by Jn Linn MD at [facility] IMPLANTS Right: [employer] - RORY [id number] / / Care Teams Courtesy Car Driver Relationship Specialty Start Date End Date Uzma Campbell MD [address] [place], [place] [id number] PCP - General Family Medicine 03/01/22
--- OUTSIDE RECORDS SUMMARY | 2024-08-19 21:37 | XMS_ITS | Encounter Summary ---
Author Organization [facility] Address [facility] [place] [address] Care Team Providers Care Logging Shovel Operator Name Role Phone Uzma Campbell MD Primary Care Provider [phone] Reason for Visit * Consultation (Routine) - Closed Specialty Diagnoses / Procedures Referred By Contsean t Referred To Contact Plastic Surgery Diagnoses Oral-nasal fistula Sinus disorder Fracture of orbital floor, right side, sequela Uzma Campbell MD [address] [place] [address] [facility] [address] [place] [address] Referral ID Status Reason Start Date Expiration Date V isits Requested Visits Authorized [id number] Closed Consult, Test & Treat PCP Updated and/or Approved 10/31/2022 10/31/2023 12 12 Encounter Details Date Type Department Care Team (Late st Contact Info) Description 03/26/2023 9:30 AM EDT Office Visit [place] [address] Rodriguez Linn MD [facility] [place] [address] Surgery follow-up Social History Tobacco Use Types [...] as of this encounter Progress Notes * Rodriguez Linn MD - 03/26/2023 9:30 AM EDT Plastic Surgery Follow Up Note Rodriguez Linn MD. Date of surgery: 03/07/22 Procedure(s): ZMC and right orbit floor repair Complications: None reported HPI: Pt reports that he feels having something in his right lower lid that is scratching his eye. He wonders if he has a screw that is coming through his skin. He reports that he is still smoking. He notes having headaches. Examination: Patient is alert, conversant, comfortable, ambulating Slightly palpable right lateral orbital rim resorbable plate Contour irregularity of maxillary alveolar ridge No obvious communication between mouth and his sinus Some persistent slight diminished sensation in right V2 distribution CN 7 intact bilaterally Pt reports feeling fluid coming through his mouth into nose while drinking liquid, I cannot facilitate any obvious fistula Impression: Derek Cristobal is a 47 y.o. male who was seen today for follow up. I explained that he should be able to move air through his nose. I do not appreciate anything obvious that is affecting this. His dissolving plate should melt away with time, in approximately another year or so. I recommend that he quit smoking, which may allow things to heal. If things do not heal, we can sometimes slide tissue over to cover it, however it will not heal if the patient is actively smoking. Plan: Follow up PRN. Follow up with PCP regarding headaches. IOctavia, have performed the documentation for this encounter in the presence of and acting as a scribe for Dr. Rodriguez Linn. IRODRIGUEZ MD, performed the services which were documented by the scribe, and I agree withthe accuracy of the documentation in this encounter. documented in this encounter Plan of Treatment Scheduled Referrals Name Type Priority Associated Diagnoses Orde r Schedule Referral to Plastic Surgery Outpatient Referral Routine Oral-nasal fistula Sinus disorder Fracture of orbital floor, right side, sequela Ordered: 10/31/2022 documented as of this encounter Visit Diagnoses Diagnosis Surgery follow-up Follow-up examination, following unspecified surgery documented in this encounter Care Teams Logging Shovel Operator Relationship Specialty Start Date End Date Berrian, Uzma M, MD [address] [place] [address] PCP - General Family Medicine 03/01/22 documented as of this encounter
--- OUTSIDE RECORDS SUMMARY | 2024-08-19 21:37 | XMS_ITS | Encounter Summary ---
Author Organization [facility] Address [address] [place] [address] Care Team Providers Care Vegetable Buncher Name Role Phone Uzma Campbell MD Primary Care Provider [phone] Encounter Details Date Type Department Care Team (Late st Contact Info) Description 09/07/2006 Before PRISM Converted Visit (Maple) [facility] conversion [address] [place] [address] Sukumar Salgado NP [address] [place] [address] [place] [address] Social History Tobacco Use Types Packs/Day Years Used Date Smoking Tobacco: Never Assessed Sex and Gender Information Value Date Recorded Sex Assigned at Not on file Gender Identity Not on file Sexual Orientation Not on file documented as of this encounter Consult Notes * Sukumar Salgado NP - 10/15/2009 135 EST DIVISION OF HEMATOLOGY / ONCOLOGY CONSULTATION - REFERRING PROVIDER: NADINE Torrez REASON FOR REFERRAL: Recommendations for thrombophilia testing with recent pulmonary embolism. HISTORY OF PRESENT ILLNESS: Derek Cristobal is a 31-year-old man whose thrombosis issues began in June 2006. He was in his usual good state of health when he developed some left calf discomfort that was not related to any trauma or injury. Several days later, he developed right pleuritic chestpain and hemoptysis. He reported to [facility] in [place], where a CT angiogram documented findings consistent with pulmonary embolism in the right lung. He was briefly admitted and started on Lovenox 1 mg/kg, which served as a bridge to warfarin, which he remains on to date. He had alower extremity Duplex scan during his admission that was negative for DVT. He had been in good health prior to the onset of pulmonary embolism. He had had no problems with acute illness, surgery, ortrauma. He was commuting from [facility] to [place] on a daily basis for work, which is approximately 4 hours daily seated in the car. He also has a family history, although many of his family members are not well known. They are noted to be on blood thinners. Given this, he was referred fo r possible thrombophilia testing. Derek has a history of low back and neck pain, which is quite debilitating. He has been seen by the [facility], takes narcotic analgesia on a chronic basis at this time. He has been unable to workdue to his pain. Otherwise, he has no other medical problems. No history of surgeries and no hospitalizations other than the recent one for his pulmonary embolism. CURRENT MEDICATIONS: 1. Warfarin 5 mg daily, or titrated to PT/INR. 2. Hydrocodone APAP tablet 10/500 t.i.d. 3. He was recently started on a long-acting morphine supplement. 4. Senna-S 1 at bedtime. 5. Aspirin 325 mg, 2 every morning for headache, or as needed. REVIEW OF SYSTEMS: Review of systems is done with the symptom report form and reviewed verbally with the patient. He denies any fever, chills, or weight loss. He has no head, eyes, ears, nose, or throat complaints. He often has chronic headaches, for which he has been self-treating with aspirin fornumerous years, stating that Tylenol causes GI upset. His chest pain and shortness of breath has resolved, and he has had no problems with palpitations. There are no GI complaints, except for occasional constipation, for which hetakes stool softeners and laxatives. No complaints. There is no lower extremity edema or pain. He denies any epistaxis. He did have scant rectal bleeding when he first started Coumadin, while straining at stool, bit it is now resolved. He has had no hematuria or other bleeding complications while anticoagulated. ALLERGIES: None known. SOCIAL HISTORY: He is single, lives in the [facility] area with his girlfriend. He also lives with his 3 daughters, aged 12, 2, and 10 months, and is expecting another child. HABITS: He smokes a nshs-spag-ax-a-pack daily for the past 16 years. He uses no alcohol and no illicit drugs. FAMILY HISTORY: The patient is not in close contact with his family members, but mother is alive and well at age 56 with no history of thrombosis. Father at age 54. He was obese, hypertension, and diabetic who had a sudden questionable to MS. He has 2 sisters and 1 brother, alive and well. Paternal grandmother alive and well. Paternal grandfather is chronically anticoagulated for unclear reasons. His father's uncle is also on anticoagulation for unclear reasons. His maternal grandmother 5 years ago from unclear reasons. Maternal grandfather had extensive diabetes with bilateral amputations of the lower extremities and is . PHYSICAL EXAMINATION: He was alert, comfortable. Vital signs: Temperature 36.2, blood pressure 103/60, pulse 89, respiratory rate 18. His height is 175 cm, weight is 97.5 kg. Head, eyes, ears, nose, and throat: Sclerae anicteric. Oral mucosa benign. Neck is supple without lymphadenopathy or thyromegaly. Lungs clear to auscultation and percussion. Cardiac exam regular rate and rhythm. No murmur. Abdomen: Soft, nontender. No hepatosplenomegaly or masses. Lower extremities: No erythema, warmth, orcords. There was no evidence of edema. LABORATORY DATA: A review of his anticoagulation record reveals INRs occasional subtherapeutic from1.3 to 1.9. Most recent one on August 13, 2006, was 1.6. IMPRESSION: A 31-year-old man with a history of essentially idiopathic pulmonary embolism diagnosedin June and treated enoxaparin as a bridge to warfarin. A complete physical exam, including a testicular exam did not suggest any underlying identifiable cause for the PE, and the only risk factor identified would be lengthy car travel prior to its onset. He did have calf pain prior to the diagnosis, but the lower extremity duplex scan performed at time of hospital admission was negative fora DVT. RECOMMENDATIONS: 1. I discussed the nature of the pulmonary embolism with Mr. Cristobal today. Essentially, we should categorize this as an idiopathic DVT, as we do not have a clear provoking incident in place, other than prolonged travel, which of course could be considered a risk. At any point, he is going to require at least 6 months of anticoagulation with a target INR of 2.5, with an acceptable range of 2.0 to3.0. 2. We discussed the possibility of thrombophilia testing, as there are some family members on his father's side who are chronically anticoagulated, although we are bit unclear on their history. He isquite young to have an idiopathic pulmonary embolism and although we may consider a recommendation for long-term anticoagulation for him, I think it may be prudent to test for inherited and acquired forms of thrombophilia. I have told him to continue on his warfarin, and I will see him back in early January 2007, while still anticoagulated, to further coordinate care and testing. 3. I have instructed him to omit his aspirin, as this can increase the bleeding risk while receiving Coumadin. I have instructed him to switch to acetaminophen and avoid nonsteroidals as well. Mr. Cristobal had adequate to ask questions, which he indicated were answered to his satisfaction. I will see him back in early January to coordinate his thrombophilia testing. Signed by Sukumar Salgado NP 09/10/2006 09:46 Malik Villalba NP Sukumar Salgado NP - CHADD Salgado P - [facility] Job ID: [id number] Document ID: [id number] cc: NADINE Torrez documented in this encounter Plan of Treatment Not on file documented as of this encounter Visit Diagnoses Not on filedocumented in this encounter Care Teams Vegetable Buncher Relationship Specialty Start Date End Date Uzma Campbell MD [address] [place] [id number] PCP - General 02/26/09 documented as of this encounter
--- OUTSIDE RECORDS SUMMARY | 2024-08-19 21:37 | XMS_ITS | Encounter Summary ---
Author Organization [facility] Address [address] [place] [address] Care Team Providers Care Reservations Clerk Name Role Phone Unavailable Primary Care Provider Unavailabl e Encounter Details Date Type Department Care Team (Late st Contact Info) Description 09/07/2006 12:51 EST Hospital Encounter [facility] [address] [place] [address] Sukumar Salgado, CHADD [address] [place] [address] [place] [address] Discharge Disposition: Auto Discharge Social History [...]
--- OUTSIDE RECORDS SUMMARY | 2024-08-19 21:38 | XMS_ITS | Encounter Summary ---
Author Organization [facility] Address [facility] [place] [address] Care Team Providers Care Actuarial Science Teacher Name Role Phone Unavailable Primary Care Provider Unavailabl e Encounter Details Date Type Department Care Team (Late st Contact Info) Description 02/27/2022 12:05 AM EDT Ancillary Procedure Radiology Library at [facility] [place] [address] Kortney Ward MD [facility] [place] [address] Social History Tobacco Use Types Packs/Day Years Used Date Smoking Tobacco: Never Assessed Sex and Gender Information Value Date Recorded Sex Assigned at Not on file Gender Identity Not on file Sexual Orientation Not on file documented as of this encounter Plan of Treatment Not on file documented as of this encounter Procedures Procedure Name Priority Date/Time Associated Diagnosis Comments FILM LIBRARY- STORAGE ONLY CT FACE Routine 02/27/2022 12:05 AM EDT documented in this encounter Results * Film Library-Storage Only CT Face (02/27/2022 12:05 AM EDT) Narrative RAD - 02/28/2022 1:27 AM EDT This exam is auto-finalizing. It's purpose is for storage only. Kortney Ward MD IMG FILM LIBRARY ORD ERABLES [place], [place] documented in this encounter Visit Diagnoses Not on filedocumented in this encounter
--- OUTSIDE RECORDS SUMMARY | 2024-08-19 21:38 | XMS_ITS | Encounter Summary ---
Author Organization [facility] Address [facility] [place] [address] Care Team Providers Care Police Clerk Name Role Phone Unavailable Primary Care Provider Unavailabl e Encounter Details Date Type Department Care Team (Late st Contact Info) Description 02/28/2022 1:30 AM EDT Ancillary Procedure Radiology Library at [facility] [place] [address] Kortney Ward MD [facility] [place] [address] Social History Tobacco Use Types Packs/Day Years [...] Associated Diagnosis Comments FILM LIBRARY STORAGE ONLY CT CHEST Routine 02/28/2022 1:23 AM EDT documented in this encounter Results * Film Library- Storage Only CT Chest (02/28/2022 1:23 AM EDT) Narrative RAD - 02/28/2022 1:23 AM EDT This exam is auto-finalizing. It's purpose is for storage only. Kortney Ward MD IMG FILM LIBRARY ORD ERABLES [place], [place] documented in this encounter Visit Diagnoses Not on filedocumented in this encounter
--- OUTSIDE RECORDS SUMMARY | 2024-08-19 21:38 | XMS_ITS | Encounter Summary ---
Author Organization [facility] Address [facility] [place] [address] Care Team Providers Care Warp Tier Name Role Phone Unavailable Primary Care Provider Unavailabl e Encounter Details Date Type Department Care Team (Late st Contact Info) Description 02/27/2022 Ancillary Procedure Radiology Library at [facility] [place] [address] Kortney Ward MD [facility] [place] [address] Social History Tobacco Use Types Packs/Day Years [...] Diagnosis Comments FILM LIBRARY STORAGE ONLY CT HEAD AND SPINE Routine 02/27/2022 12:00 AM EDT documented in this encounter Results * Film Library- Storage Only CT Head And Spine (02/27/2022 12:00 AM EDT) Narrative JACQUELINE - 02/28/2022 1:27 AM EDT This exam is auto-finalizing. It's purpose is for storage only. Kortney Ward MD IMG FILM [facility]D [facility]ABLES [facility] [place] documented in this encounter Visit Diagnoses Not on filedocumented in this encounter
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
--- OUTSIDE RECORDS SUMMARY | 2024-08-19 21:38 | XMS_ITS | Encounter Summary ---
Author Organization [facility] [place] [address] Care Team Providers Care Senior Painter Name Role Phone Uzma Campbell MD Primary Care Provider [phone] Reason for Visit * Consultation (Emergency) - Closed Specialty Diagnoses / Procedures Referred By Contact Referred To Contact Ophthalmology Diagnoses Closed fracture of right zygomaticomaxillary complex, initial encounter Fracture of orbital floor, right side, initial encounter for closed fracture Jn Linn MD [facility] [place] [address] [facility] [address] [place] [phone] Referral ID Status Reason Start Date Expiration Date V isits Requested Visits Authorized [id number] Closed Consult, Test & Treat 03/01/2022 03/01/2023 1 1 Encounter Details Date Type Department Care Team (Latest Contact Info) Description 03/01/2022 12:40 PM EDT [place] [address] Ange Akins MD [facility] [place] [address] Subconjunctival hemorrhage of right eye Social History Tobacco Use Types Packs/Day Years Used Date Smoking Tobacco: Never Assessed Sex and Gender Information Value Date Recorded Sex Assigned at Not on file Gender Identity Not on file Sexual Orientation Not on file documented as of this encounter Progress Notes * Jun Smith MD - 03/01/2022 12:40 PM EDT Images from the original note were not included. Visual Acuity (Snellen - Linear) Right Left Dist sc 20/20 -1 20/20 -1 Near sc 20/30 20/30 OD vision was check with OS patched Assessment/Plan: Encounter Diagnosis Name Primary? Subconjunctival hemorrhage of right eye Derek Cristobal is a 46 y.o. male with the following ophthalmic problems: Right orbital floor fracture; Subconjunctival Hemorrhage; Otherwise Normal Eye Exam Derek exhibits excellent visual acuity with best correction, normal pupillary reaction without noted rAPD though limited by photophobia, grossly normal intraocular pressures, full confrontational visual restrepo, and full ocular motility without restriction though with some mild discomfort on upgaze likely from swelling. On dilated eye exam today, he had normal anterior ocular structures with the exception of subconjunctival hemorrhage. The posterior segment exam (including retina and optic nerve exam) revealed no signs of hemorrhage, ischemia, vascular occlusion, vasculitis, or retinal detachment. Imaging revealeda right orbital floor fracture as above for which he is to have plastic surgery next week with Dr. Linn. He saw Dr. Linn today and there was concern for visual changes, but on our evaluation, the eyes are healthy appearing. Specifically, there was no evidence of muscle entrapment, motility deficit or visual dysfunction. Recommendations: - Management per plastic surgery -Ophthalmology f/u PRN Findings and concerns discussed with Derek and they expressed understanding. RTC PRN OF NOTE: During our evaluation, the patient began suddenly having acute onset Left sided chest/flank pain 10/10 for which he was in acute distress. The pain was unrelenting, worse with palpation. He had no nausea and vomiting, did endorse some shortness of breath due to pain. He was mildly tachycardic. BP measurement was deferred to more quickly take him down to ED. Eye evaluation was expedited and transfer center was called, patient was wheeled down to the ED for further evaluation. Patient's significant other was notified. He appreciated the help. Appreciate the help of ED staff. -- Jun Smith MD PGY-2, Ophthalmology Resident #[id number] 03/01/2022 4:04 PM I saw the patient with the following level of supervision from the attending: Direct from Dr. Akins. I saw and evaluated the patient with Dr. Smith. I have reviewed the history during the visit and agree with the details as written. My ophthalmologic exam confirms the findings. The assessment and plan were formulated in discussion with me at the time of the visit and I agree with them as documented. 03/01/2022 Ange Akins MD [employer] Supervisor, Pediatric Ophthalmology Section of Ophthalmology, Department of Surgery [facility] Pager #[phone] documented in this encounter Plan of Treatment Scheduled Referrals Name Type Priority Associated Diagnoses Orde r Schedule Referral to Ophthalmology Outpatient Referral STAT Closed fracture of right zygomaticomaxillary complex, initial encounter Fracture of orbital floor, right side, initial encounter for closed fracture Ordered: 03/01/2022 documented as of this encounter Visit Diagnoses Diagnosis Subconjunctival hemorrhage of right eye documented in this encounter Care Teams Senior Painter Relationship Specialty Start Date End Date Uzma Campbell MD [address] [place] [address] PCP - General Family Medicine 03/01/22 documented as of this encounter
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
--- OUTSIDE RECORDS SUMMARY | 2024-08-19 21:38 | XMS_ITS | Encounter Summary ---
Author Organization [facility] [place] [address] Care Team Providers Care Comic Book Writer Name Role Phone Unavailable Primary Care Provider Unavailabl e Encounter Details Date Type Department Care Team (Late st Contact Info) Description 02/28/2022 Telephone [place] [address] Kandy Andersen Social History Tobacco Use Types Packs/Day Years [...]
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
--- OUTSIDE RECORDS SUMMARY | 2024-08-19 21:38 | XMS_ITS | Encounter Summary ---
Author Organization [facility] Address [facility] [place] [address] Care Team Providers Care Channel Specialist Name Role Phone Uzma Campbell MD Primary Care Provider [phone] Reason for Visit * Auth/Cert Specialty Diagnoses [...] Expiration Date Visits Re quested Visits Authorized [id number] 1 1 Encounter Details Date Type Department Care Team (Late st Contact Info) Description 03/07/2022 7:54 AM EDT Anesthesia [place] [id number] Eligio Garces MD [facility] [place] [address] [place] [address] Anson Knapp CRNA [facility] [place] [address] [place] [address] Anesthesia Record Procedure Summary Procedure Name Responsible Anesthesiologist Anesthesia Start Time Anesthesia Stop Time OPEN TREATMENT OF ORBITAL FLOOR BLOWOUT FX, PERIORBITAL APPROACH, W/ ALLOPLASTIC OR OTHER IMPLANT (WRVU 11.23) (Right: Face) Eligio Garces MD 03/07/22 0754 03/07/22 1044 Events Date Time Event Comment 03/07/2022 0753 AN Verify 0754 Start 0754 An Start Data 0802 An Induction 0807 An Intubation 0807 Anesthesia Ready 0832 Procedure Start 1017 Quick Note Throat pack out 1035 Extubation/LMA Out Following commands, Vt > 350, oropharynx suctioned and extubated to facemask without event. 1039 an stop data 1044 Recovery or ICU Handoff Osiris ent care was transferred to the destination unit staff after review of the patient's medical history, current anesthetic/surgical status and plan, according to the Provider Handoff Checklist. 1044 Stop 1117 Meds Name Total Midazolam 2 mg IV Lidocaine 100 mg Propofol 200 mg Rocuronium 70 mg PHENYLephrine 240 mcg ePHEDrine 35 mg Ondansetron 4 mg Dexamethasone 8 mg Neostigmine 5 mg Glycopyrrolate 0.6 mg Succinylcholine 100 mg ceFAZolin 2 g HYDROmorphone 2 mg/mL 1 mg Lactated Ringers 1,000 mL * Agents Name O2 Air N2O Sevoflurane (et) * Blood No blood administrations on file. Lines, Drains, and Airways Type Details Placement Removal Incision 03/07/22; Right; fac e (below right eye.) 03/07/22 0000 by Polina Collazo, ELY Incision 03/07/22; Right; gum (teeth removal.) 03/07/22 0000 by Polina Collazo, ELY Incision 03/07/22; 0837; Righ t; forehead (above eyebrow.) 03/07/22 0837 by Polina Collazo, ELY (RETIRED) Peripheral IV Line - Single Lumen 03/07/22; 0659; metacarpal vein (top of hand), left; verg-vlv-rfwyrs catheter system; Anatomical Landmarks; 20 gauge, 1 in length; NIC; distraction, intradermal injection, tolerated well, appears comfortable; no longer indicated; 03/07/22; 1138 03/07/22 0659 by Felix Parker RN 03/07/22 1138 by Saira Houser RN ETT Mask Ventilation: Ea sy (1); ETT Type: Cuffed, Oral, CAITY; ETT Size: 7.5 mm; Indirect: Video; Notes: Asleep, Pre-O2, Stylette; Attempts: 1; Laryngoscopy Grade: 1; ETT Placement Verified By: Auscultation, Capnometry, Visual; Inserted by: LIMA Cody; Removal Date: 03/07/22; Removal Time: 1035 03/07/22 0807 by Jacinto Cody CRNA 03/07/22 1035 by Jacinto Cody CRNA documented in this encounter Social History Tobacco Use Types Packs/Day Years [...] on file documented as of this encounter OR Notes * Anesthesia Postprocedure Evaluation - Eligio Garces MD - 03/07/2022 11:18 AM EDT Department of Anesthesiology Post-procedure Note Patient: Derek Cristobal Procedure Summary Date: 03/07/22 Room / Location: [facility] OR [facility] MAIN OR Anesthesia Start: 4 Anesthesia Stop: 1043 Procedures: OPEN TREATMENT OF ORBITAL FLOOR BLOWOUT FX, PERIORBITAL APPROACH, W/ ALLOPLASTIC OR OTHER IMPLANT (WRVU 11.23) (Right Face) ALVEOLOPLASTY, EACH QUADRANT (WRVU 3.19) (Right Mouth) SURGICAL EXTRACTIONS REQUIRING ELEVATION OF MUCOPERIOSTEAL FLAP AND REMOVAL OF BONE OR SECTION OF TOOTH (WRVU 1.09) (Right Mouth) OPEN TREATMENT COMPLICATED FX(S) MALAR AREA, W/ INT FIX & MULT. APPROACHES (WRVU 16.77) (Right Face) Diagnosis: Closed fracture of right zygomaticomaxillary complex, initial encounter Fracture of orbital floor, right side, initial encounter for closed fracture (right mildly displaced ZMC and orbital floor fracture) Surgeons: Jn Linn MD Responsible Provider: Eligio Garces MD Anesthesia Type: general ASA Status: 2 All Anesthesia Providers: Anesthesiologist: Eligio Garces MD SAVINGS COUNSELOR: Jacinto Cody CRNA Vitals Value Taken Time BP 153/106 03/07/22 1115 Temp Pulse 211 03/07/22 1043 Resp 16 03/07/22 1110 SpO2 95 % 03/07/22 1117 Pain Level 0 03/07/22 1050 Vitals shown include unvalidated device data. Patient Location: PACU/[facility] Level of Consciousness: Awake and Alert Pain Management: Satisfactory Analgesia PONV: None Cardiovascular Status: At Baseline and Hemodynamically Stable Respiratory Status: At Baseline and Room Air Postoperative Fluid Status: Intravascular EUvolemia Possible Anesthetic Complications: NONE apparent at time of evaluation Final Primary Anesthesia Type: General (The anesthetic type performed was the same as planned.) Comments: ELIGIO GARCES MD * Anesthesia Preprocedure Evaluation - Eligio Garces MD - 03/07/2022 6:37 AM EDT Pre-Anesthesia Evaluation for: Derek Cristobal a 46 y.o. male. Procedure(s): OPEN TREATMENT OF ORBITAL FLOOR BLOWOUT FX, PERIORBITAL APPROACH, W/ ALLOPLASTIC OR OTHER IMPLANT (WRVU 11.23) ALVEOLOPLASTY, EACH QUADRANT (WRVU 3.19) SURGICAL EXTRACTIONS, REMOVAL OF IMPACTED TOOTH, SOFT TISSUE (WRVU 1.39) There are no problems to display for this patient. History reviewed. No pertinent past medical history. History reviewed. No pertinent surgical history. Social History Tobacco Use ??? Smoking status: Current Every Day Smoker Packs/day: 0.50 Years: 35.00 Pack years: 17.50 Types: Cigarettes ??? Smokeless tobacco: Never Used Substance Use Topics ??? Alcohol use: Not Currently Comment: stopped 16 years ago Social History Substance and Sexual Activity Drug Use Yes ??? Frequency: 7.0 times per week ??? Types: Marijuana Comment: sleeping No Known Allergies Medications: MAR and/or home medications have been reviewed. Physical Exam: Preprocedure Vitals Current as of 03/07/22 0637 BP: 158/90 Pulse: 74 Resp: 18 SpO2: 98 Temp: 36.6 ??C (97.9 ??F) Height: 175.3 cm (5' 9) (03/07/22) Weight: 81.6 kg (180 lb) (03/07/22) BMI: 26.58 IBW: 70.7 kg (155 lb 15.1 oz) Last edited 03/07/22 0612 by BF Airway Assessment: Mallampati: II Cardiovascular Assessment: system normal Pulmonary Assessment: unlabored breathing Dental Assessment: Misc Assessment: IV access: Peripheral line Last Filed Perioperative Cognitive Screening None Anesthesia Plan: ASA 2 general, with a(n) intravenous induction Orbital floor fracture Takes 110mg methadone qd. [facility] GA/oralRAE Informed Consent: Anesthetic plan and risks discussed with patient. Plan discussed with SAVINGS COUNSELOR. Anesthesia Screening documented in this encounter Plan of Treatment Not on file documented as of this encounter Visit Diagnoses Not on filedocumented in this encounter Administered Medications Inactive Administered Medications - up to 3 most recent administrations Medication Order MAR Action Action Date Dose Rate Site ceFAZolin (Ancef) 1 g in dextrose 5% 50 mL infusion Intravenous, PRN, Starting on Sun03/07/22 at 0816, Until Sun03/07/22 at 1045, Administer over 30 Minutes, Anesthesia Intra-op Given 03/07/2022 8:16 AM EDT 2 g dexamethasone (Decadron) injection Intravenous, PRN, Starting on Sun03/07/22 at 0809, Until Sun03/07/22 at 1045, Anesthesia Intra-op, Routine Given 03/07/2022 8:09 AM EDT 8 mg ePHEDrine sulfate (5 mg/mL) multi-dose injection Intravenous, PRN, Starting on Sun03/07/22 at 0829, Until Sun03/07/22 at 1045, Anesthesia Intra-op, Routine Given 03/07/2022 10:08 AM EDT 5 mg Given 03/07/2022 9:38 AM EDT 5 mg Given 03/07/2022 9:23 AM EDT 5 mg glycopyrrolate (Robinul) (0.2 mg/mL) multi-dose injection Intravenous, PRN, Starting on Sun03/07/22 at 1023, Until Sun03/07/22 at 1045, Anesthesia Intra-op, Routine Given 03/07/2022 10:23 AM EDT 0.6 mg HYDROmorphone (Dilaudid) (2 mg/mL) multi-dose injection solution Intravenous, PRN, Starting on Sun03/07/22 at 0821, Until Sun03/07/22 at 1045, Anesthesia Intra-op, Routine Given 03/07/2022 8:21 AM EDT 1 mg lactated ringers infusion Intravenous, CONTINUOUS PRN, Starting on Sun03/07/22 at 0753, Until Sun03/07/22 at 1045, Anesthesia Intra-op New Bag 03/07/2022 7:53 AM EDT lidocaine (pf) (Xylocaine) (20 mg/mL) 2% injection syringe Intravenous, PRN, Starting on Sun03/07/22 at 0803, Until Sun03/07/22 at 1045, Anesthesia Intra-op, Routine Given 03/07/2022 8:03 AM EDT 100 mg midazolam (pf) (Versed) (1 mg/mL) multi-dose injection Intravenous, PRN, Starting on Sun03/07/22 at 0756, Until Sun03/07/22 at 1045, Anesthesia Intra-op, Routine Given 03/07/2022 7:56 AM EDT 2 mg neostigmine (Bloxiver) (1 mg/mL) injection Intravenous, PRN, Starting on Sun03/07/22 at 1023, Until Sun03/07/22 at 1045, Anesthesia Intra-op, Routine Given 03/07/2022 10:23 AM EDT 5 mg ondansetron (pf) (Zofran) (2 mg/mL) injection Intravenous, PRN, Starting on Sun03/07/22 at 1010, Until Sun03/07/22 at 1045, Anesthesia Intra-op, Routine Given 03/07/2022 10:10 AM EDT 4 mg PHENYLephrine in NS (PF) (RODERICK-SYNEPHRINE) 0.8 mg/10 mL (80 mcg/mL) multi-dose injection Syrg Intravenous, PRN, Starting on Sun03/07/22 at 0815, Until Sun03/07/22 at 1045, Anesthesia Intra-op, Routine Given 03/07/2022 8:45 AM EDT 80 mcg Given 03/07/2022 8:21 AM EDT 80 mcg Given 03/07/2022 8:15 AM EDT 80 mcg propofoL (Diprivan) 10 mg/mL bolus injection (Anesthesia) Intravenous, PRN, Starting on Sun03/07/22 at 0803, Until Sun03/07/22 at 1045, Anesthesia Intra-op Given 03/07/2022 8:03 AM EDT 200 mg rocuronium (Zemuron) (10 mg/mL) multi-dose injection Intravenous, PRN, Starting on Sun03/07/22 at 0813, Until Sun03/07/22 at 1045, Anesthesia Intra-op, Routine Given 03/07/2022 9:52 AM EDT 10 mg Given 03/07/2022 9:11 AM EDT 10 mg Given 03/07/2022 8:13 AM EDT 50 mg succinylcholine (Anectine;Quelicin) (20 mg/mL) injection Intravenous, PRN, Starting on Sun03/07/22 at 0802, Until Sun03/07/22 at 1045, Anesthesia Intra-op, Routine Given 03/07/2022 8:02 AM EDT 100 mg documented in this encounter Care Teams Channel Specialist Relationship Specialty Start Date End Date Uzma Campbell MD [address] [place] [address] PCP - General Family Medicine 03/01/22 documented as of this encounter
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
--- OUTSIDE RECORDS SUMMARY | 2024-08-19 21:38 | XMS_ITS | Encounter Summary ---
Author Organization [facility] [place] [address] Care Team Providers Care Print Shop Chief Clerk Name Role Phone Unavailable Primary Care Provider Unavailabl e Encounter Details Date Type Department Care Team (Late st Contact Info) Description 06/25/2019 Ancillary Procedure Radiology at [facility] [address] [place] [address] Jennifer Becerril MD [address] [facility] [address] [place] [address] Social History Tobacco Use Types Packs/Day Years [...] FILM LIBRARY STORAGE ONLY MR SPINE Routine 06/25/2019 12:00 AM EDT documented in this encounter Results * Film Library- Storage Only MR Spine (06/25/2019 12:00 AM EDT) Narrative RAD - 07/09/2019 3:54 PM EDT This exam is auto-finalizing. It's purpose is for storage only. Jennifer Becerril MD IMG FILM LIBRARY ORDERABLES [place], [place] documented in this encounter Visit Diagnoses Not on filedocumented in this encounter
--- OUTSIDE RECORDS SUMMARY | 2024-08-19 21:38 | XMS_ITS | Encounter Summary ---
Author Organization [facility] [place] [address] Care Team Providers Care Skills Instructor Name Role Phone Unavailable Primary Care Provider Unavailabl e Encounter Details Date Type Department Care Team (Late st Contact Info) Description 09/03/2014 Ancillary Procedure Radiology at [facility] [address] [place] [address] Jennifer Becerril MD [address] [place] [address] Social History Tobacco Use Types Packs/Day Years [...] FILM LIBRARY STORAGE ONLY DX SPINE Routine 09/03/2014 12:00 AM EST documented in this encounter Results * Film Library- Storage Only DX Spine (09/03/2014 12:00 AM EST) Narrative RAD - 07/09/2019 3:56 PM EDT This exam is auto-finalizing. It's purpose is for storage only. Jennifer Becerril MD IMG FILM LIBRARY ORDERABLES [place], [place] documented in this encounter Visit Diagnoses Not on filedocumented in this encounter
--- OUTSIDE RECORDS SUMMARY | 2024-08-19 21:38 | XMS_ITS | Encounter Summary ---
Author Organization [facility] Address [facility] [place] [address] Care Team Providers Care Security Intern Name Role Phone Unavailable Primary Care Provider Unavailabl e Encounter Details Date Type Department Care Team (Late st Contact Info) Description 02/28/2022 1:25 AM EDT Ancillary Procedure Radiology Library [place] [facility] [place] [address] Kortney Ward MD [facility] [place] [address] Social History Tobacco Use Types Packs/Day Years [...] Diagnosis Comments FILM LIBRARY STORAGE ONLY CT SPINE Routine 02/28/2022 1:20 AM EDT documented in this encounter Results * Film Library- Storage Only CT Spine (02/28/2022 1:20 AM EDT) Narrative RAD - 02/28/2022 1:20 AM EDT This exam is auto-finalizing. It's purpose is for storage only. Kortney Ward MD IMG FILM LIBRARY ORD ERABLES [place], [place] documented in this encounter Visit Diagnoses Not on filedocumented in this encounter
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
--- OUTSIDE RECORDS SUMMARY | 2024-08-19 21:38 | XMS_ITS | Encounter Summary ---
Author Organization [facility] Address [facility] [place] [address] Care Team Providers Care Manager Fashion Name Role Phone Uzma Campbell MD Primary Care Provider [phone] Reason for Visit * Auth/Cert Specialty Diagnoses [...] Expiration Date Visits Re quested Visits Authorized [id number] 1 1 Encounter Details Date Type Department Care Team (Latest Contact Info) Description 03/07/2022 5:42 AM EDT - 03/07/2022 11:39 AM EDT Hospital Encounter [place] [address] Rodriguez Monaco MD [facility] [place] [address] Closed fracture of right zygomaticomaxillary complex, initial encounter; Fracture of orbital floor, right side, initial encounter for closed fracture Discharge Disposition: Home Social History Tobacco Use [...] with each person. Pain (short term and mcfp) With any surgery there is some discomfort or pain. We will prescribe medicine for pain. You should take the medicine as prescribed and only as needed. We recommend taking an whtk-qdm-Skrhwri stool softener, such as Colace (docusate) or [...] about scheduling, please contact our administrative officesat [phone] For clinical questions, please call our nurses at [phone] Both offices are open Sunday thru Sunday 8a - 5p. With emergencies after hours, call the hospital cotton picking machine operator at [phone] and ask for the Plastic Surgery Resident manager utilization management. documented in this encounter Medications at Time [...] Operative Note Patient Name: Derek Cristobal : [id number] MR#: [id number] Case Date: 03/07/2022 Surgeon: Surgeon(s) and Role: [...] Monaco MD - 03/07/2022 8:37 AM EDT [facility] Operative Note Patient Name: Derek Cristobal : [id number] MR#: [id number] Case Date: 03/07/2022 Surgeon: Surgeon(s) and Role: [...] fracture Open Treat Complx Cheek Bone Frac (72771) Yes 03/07/2022 7:53 AM EDT Closed fracture [...] encounter for closed fracture Repair Tooth Socket (13983) Yes 03/07/2022 7:53 AM EDT Closed fracture of right zygomaticomaxillary complex, initial encounter Fracture of orbital floor, right side, initial encounter for closed fracture Repair Eye Blowout, Periorb+Implnt (67515) Yes 03/07/2022 7:53 AM EDT Closed fracture [...] Given 03/07/2022 6:53 AM EDT 975 mg methadone (Dolophine) tablet 110 mg 110 mg, Oral, ONCE, 1 dose, On Sun03/07/22 at 0730, Day of Surgery (Day of Procedure), Routine Given 03/07/2022 7:32 AM EDT 110 mg documented in this encounter Active and Recently Administered Medications Times are shown in EDT. Scheduled Medication Order 03/05/2022 03/06/2022 03/07/2022 acetaminophen (Tylenol) tablet 975 mg (COMPLETED) 975 [...] prep) documented in this encounter Care Teams Manager Fashion Relationship Specialty Start Date End Date Uzma Campbell MD [address] [place] [address] PCP - General Family Medicine 03/01/22 documented as of this encounter
--- OUTSIDE RECORDS SUMMARY | 2024-08-19 21:38 | XMS_ITS | Encounter Summary ---
Author Organization [facility] Address [facility] [place] [address] Care Team Providers Care Clerk Entry Level Name Role Phone Unavailable Primary Care Provider Unavailabl e Encounter Details Date Type Department Care Team (Latest Contact Info) Description 02/28/2022 Orders [place] [address] Richar Bose MD [facility] [place] [address] Closed fracture of right zygomaticomaxillary complex, initial encounter Social History Tobacco Use Types Packs/Day [...] fracture of right zygomaticomaxillary complex, initial encounter documented in this encounter
[2024-08-20 21:12] LABS: Iron 49 ug/dL (65-175)
[2024-08-21 20:18] LABS: T3,Free 3.9 pg/mL (2.8-5.3)
[2024-08-25 16:20] LABS: Albumin 55.1 % (55.8-66.1); Comment (See Note); Monoclonal Spike 3.1 % (None Seen); Monoclonal Spike g/dL 0.2 g/dL (None Seen); Total Protein 7.3 g/dL (6.3-8.2)
[2024-08-25 16:43] LABS: Immunotyping, Serum (See Note)
== END 2024-08-19 21:35 | disposition home or self-care (01) ==
LOC: NCHCN 21:34
PROVIDERS: PCP Family Medicine; Visit Provider Family Medicine
DX: E11.9 Type 2 diabetes mellitus without complications (principal); M54.2 Cervicalgia; Z00.00 Encounter for general adult medical examination without abnormal findings
CPT/HCPCS: 80053; 82306; 85027; 85652; 82607; 83540; 84165; 84439; 84443; 84481; 86320

== ENCOUNTER 2024-11-20 14:24 | Outpatient (REF) | payer MEDICAID, SELFPAY ==
--- OUTSIDE RECORDS SUMMARY | 2024-11-20 14:26 | XMS_ITS | Encounter Summary ---
Author Organization [facility] [place] [address] Care Team Providers Care Precision Instrument Maker And Repairer Name Role Phone Uzma Campbell MD Primary Care Provider [phone] Encounter Details Date Type Department Care Team (Late st Contact Info) Description 05/09/2023 12:05 AM EDT Ancillary Procedure Radiology at [facility] [address] [place] [id number] Jennifer Becerril MD [address] [facility] [place] [address] Social History Tobacco Use Types Packs/Day Years [...] Becerril MD IMG FILM LIBRARY ORDERABLES [facility] [place], [place] documented in this encounter Visit Diagnoses Not on filedocumented in this encounter Care Teams Precision Instrument Maker And Repairer Relationship Specialty Start Date End Date Uzma Campbell MD [address] [place] [address] PCP - General Family Medicine 03/01/22 documented as of this encounter
--- OUTSIDE RECORDS SUMMARY | 2024-11-20 14:26 | XMS_ITS | Clinical Summary ---
Author Organization [facility] Address [facility] [place] [address] Care Team Providers Care Computer Methods Analyst Name Role Phone Uzma Campbell MD Primary Care Provider [phone] Allergies No known active allergies Medications Medication [...] year) with FIT yearly 1975 Sigmoidoscopy 1975 HIV screen 1993 Hepatitis C Screening 1993 Hepatitis B vaccine (0-59 yrs) (1) 1994 Pneumococcal Vaccine: At-Risk 5-49yrs (1 of 2 - PCV) 1 Tetanus/Diphtheria/Pertussis Vaccines (1 - Tdap) 07/29 Diabetes Screening (HgbA1C or Glucose) 2015 Covid-19 Vaccine (1 - 2023-25 season) 2024 Influenza (Flu) vaccine (1 o f 1 - Influenza standard series) 06/22/2024 Medical Devices Implanted Type Area Customs Consultant Device Identifier Shelf Expiration Date Model / Serial / Lot Mesh Cmf [id number] Cranium Pgla Delta ([id number]) (Autoreq) - [id number] Implanted:Qty : 1 on 03/07/2022 by Jn Linn MD at [facility] IMPLANTS Right: Orbit [employer] - RORY 04/21/2023 [id number] / / [id number] Plate Cmf 1.7mm Midface Curved 6 Hole Gold Ti Leibinger ([id number]) - [id number] Implanted:Qty : 1 on 03/07/2022 by Jn Linn MD at [facility] IMPLANTS Right: Orbit [employer] - RORY [id number] / / Plate Cmf 0.6mm Midface Straight 4 Hole Gold Ti Leibinger ([id number]) - [id number] Implanted:Qty : 1 on 03/07/2022 by Jn Linn MD at [facility] IMPLANTS Right: [employer] - RORY [id number] / / Plate Cmf 0.55mm Midface 24 Hole Blue Ti Leibinger ([id number]) - [id number] Implanted:Qty : 1 on 03/07/2022 by Jn Linn MD at [facility] IMPLANTS Right: [employer] - RORY [id number] / / Screw Cmf 1.9x5mm Midface Self Tapping Non Locking [place] Ti ([id number]) - [id number] Implanted:Qty : 1 on 03/07/2022 by Jn Linn MD at [facility] IMPLANTS Right: [employer] - RORY [id number] / / Screw Cmf 1.7x3mm Upper Face Self Tapping Non Locking Gold ([id number]) - [id number] Implanted:Qty : 1 on 03/07/2022 by Jn Linn MD at [facility] IMPLANTS Right: [employer] - RORY [id number] / / Screw Cmf 1.7x5mm Upper Face Self Tapping Non Locking Gold ([id number]) - [id number] Implanted:Qty : 18 on 03/07/2022 by Jn Linn MD at [facility] IMPLANTS Right: [employer] - RORY [id number] / / Procedures Procedure Name Priority Date/Time Associated Diagnosis Comments LAB SCAN 08/25/2024 12:00 AM EST from Last 3 Months Results * Scan Doc: Lab (08/25/2024 12:00 AM EST) Narrative 08/25/2024 12:00 AM EST Ordered by an unspecified provider. Scanning Provider MEDIA MGR SCAN EXT O RDR/RSLT from Last 3 Months Care Teams Computer Methods Analyst Relationship Specialty Start Date End Date Uzma Campbell MD [address] [place], [place] [id number] PCP - General Family Medicine 03/01/22
--- OUTSIDE RECORDS SUMMARY | 2024-11-20 14:26 | XMS_ITS | Encounter Summary ---
Author Organization [facility] Address [facility] [place] [address] Care Team Providers Care Community Education Coordinator Name Role Phone Uzma Campbell MD Primary Care Provider [phone] Reason for Visit * Auth/Cert Specialty Diagnoses [...] Expiration Date Visits Re quested Visits Authorized [id number] 1 1 Encounter Details Date Type Department Care Team (Late st Contact Info) Description 03/07/2022 7:30 AM EDT - 03/07/2022 11:15 AM EDT [place] [address] Rodriguez Monaco MD [facility] [place] [address] OPEN TREATMENT COMPLICATED FX(S) MALAR AREA, W/ [...] with each person. Pain (short term and buttermaker helper) With any surgery there is some discomfort or pain. We will prescribe medicine for pain. You should take the medicine as prescribed and only as needed. We recommend taking an bfhz-jei-Ehfzsbk stool softener, such as Colace (docusate) or [...] about scheduling, please contact our administrative officesat [phone] For clinical questions, please call our nurses at [phone] Both offices are open Sunday thru Sunday 8a - 5p. With emergencies after hours, call the hospital cut to length operator at [phone] and ask for the Plastic Surgery Resident live ammunition inspector. documented in this encounter Medications at Time [...] Operative Note Patient Name: Derek Cristobal : [id number] MR#: [id number] Case Date: 03/07/2022 Surgeon: Surgeon(s) and Role: [...] Monaco MD - 03/07/2022 8:37 AM EDT [facility] Operative Note Patient Name: Derek Cristobal : [id number] MR#: [id number] Case Date: 03/07/2022 Surgeon: Surgeon(s) and Role: [...] fracture Open Treat Complx Cheek Bone Frac (61915) Yes 03/07/2022 7:53 AM EDT Closed fracture [...] encounter for closed fracture Repair Tooth Socket (23307) Yes 03/07/2022 7:53 AM EDT Closed fracture of right zygomaticomaxillary complex, initial encounter Fracture of orbital floor, right side, initial encounter for closed fracture Repair Eye Blowout, Periorb+Implnt (85028) Yes 03/07/2022 7:53 AM EDT Closed fracture [...] prep) documented in this encounter Care Teams Community Education Coordinator Relationship Specialty Start Date End Date Uzma Campbell MD [address] [place] [address] PCP - General Family Medicine 03/01/22 documented as of this encounter
--- OUTSIDE RECORDS SUMMARY | 2024-11-20 14:26 | XMS_ITS | Encounter Summary ---
Author Organization [facility] Address [address] [place] [address] Care Team Providers Care Fit Model Name Role Phone Unavailable Primary Care Provider Unavailabl e Encounter Details Date Type Department Care Team (Latest Contact Info) Description 06/14/2006 15:15 EDT Hospital Encounter [place] - Map conversion [address] [place] [address] Mckenzie Phillips MD [address] [place] [address] [place] [phone] Discharge Disposition: Auto Discharge Social History Tobacco Use Types Packs/Day Years Used Date Smoking Tobacco: Never Assessed Sex and Gender Information Value Date Recorded Sex Assigned at Not on file Legal Sex Male 18:15 EST Gender Identity Not on file Sexual Orientation Not on file documented as of this encounter Discharge Disposition Disposition Code Departure Means Destination Auto Discharge documented in this encounter Plan of Treatment Not on file documented as of this encounter Visit Diagnoses Not on filedocumented in this encounter
--- OUTSIDE RECORDS SUMMARY | 2024-11-20 14:26 | XMS_ITS | Encounter Summary ---
Author Organization [facility] Address [address] [place] [address] Care Team Providers Care Flotation Tender Name Role Phone Unavailable Primary Care Provider Unavailabl e Encounter Details Date Type Department Care Team (Late st Contact Info) Description 02/28/2007 9:21 EDT - 02/28/2007 11:59 EDT Hospital Encounter [facility] [address] [place] [address] Sukumar Salgado, DOOR GLASS INSTALLER [address] [place] [address] [place] [phone] Discharge Disposition: Auto Discharge Social History [...]
--- OUTSIDE RECORDS SUMMARY | 2024-11-20 14:26 | XMS_ITS | Encounter Summary ---
Author Organization [facility] Address [address] [place] [address] Care Team Providers Care Computer Project Manager Name Role Phone Unavailable Primary Care Provider Unavailabl e Encounter Details Date Type Department Care Team (Latest Contact Info) Description 02/03/2009 13:03 EDT - 02/18/2009 11:59 EDT Hospital Encounter [facility] - Maple conversion [address] [place] [address] Uzma Campbell MD [address] [place], [place] [id number] Discharge Disposition: Auto Discharge Social History Tobacco [...]
--- OUTSIDE RECORDS SUMMARY | 2024-11-20 14:26 | XMS_ITS | Encounter Summary ---
Author Organization [facility] Address [address] [place] [address] Care Team Providers Care Printing Gray Cloth Tender Name Role Phone Uzma Campbell MD Primary Care Provider [phone] Encounter Details Date Type Department Care Team (Late st Contact Info) Description 06/14/2006 Before PRISM Converted Visit (Maple) [facility] - Maple conversion [address] [place] [address] Alyssia Hayden MD [address] [place] [address] Social History Tobacco Use Types Packs/Day Years Used Date Smoking Tobacco: Never Assessed Sex and Gender Information Value Date Recorded Sex Assigned at Not on file Legal Sex Male 18:15 EST Gender Identity Not on file Sexual Orientation Not on file documented as of this encounter Procedure Notes * Vineet, Conv Emblem Drawer In - 10/15/2009 1431 EST DIVISION OF PAIN MANAGEMENT PROCEDURE REPORT SERVICE DATE: 06/14/2006 PROFESSOR OF FINE ART: Mckenzie Phillips MD BATCHING OPERATOR: Alyssia Hayden MD PROCEDURE: Left sacroiliac joint injection. PREPROCEDURE DIAGNOSIS: Left axial low back pain and left sacroiliac joint pain. POSTPROCEDURE DIAGNOSIS: Left axial low back pain and left sacroiliac joint pain. HISTORY OF PRESENT ILLNESS: Mr. Cristobal is a very pleasant gentleman who was referred to see us by NADINE Gates from the [facility],for persistent axial low back pain with sacroiliac [...] ambulatory and in the company of the driver/merchandiser, and had tolerated the procedure well. Dr. Mckenzie Phillips was present and participated in all parts of the examination. Signed by Mckenzie Phillips MD 06/27/2006 10:26 Armida Edge MDTiffini Lake, MD Dictated by: Alyssia Hayden MD Mckenzie Phillips MD - Alyssia Hayden MD A - [facility] Job ID: [id number] Document ID: [id number] cc: NADINE Major PA Job ID: [id number] Document ID: [id number] cc: NADINE Major PA documented in this encounter Plan of Treatment Not on file documented as of this encounter Visit Diagnoses Not on filedocumented in this encounter Care Teams Printing Gray Cloth Tender Relationship Specialty Start Date End Date Uzma Campbell MD [address] [place] [address] PCP - General 02/26/09 documented as of this encounter
--- OUTSIDE RECORDS SUMMARY | 2024-11-20 14:26 | XMS_ITS | Encounter Summary ---
Author Organization [facility] [place] [address] Care Team Providers Care Mountain Bike Guide Name Role Phone Uzma Campbell MD Primary Care Provider [phone] Reason for Referral * Consultation (Routine) - Closed Specialty Diagnoses / Procedures Referred By Contsean t Referred To Contact Plastic Surgery Diagnoses Oral-nasal fistula Sinus disorder Fracture of orbital floor, right side, sequela Uzma Campbell MD [address] [place] [address] [facility] [address] [place] [phone] Referral ID Status Reason Start Date Expiration Date V isits Requested Visits Authorized [id number] Closed Consult, Test & Treat PCP Updated and/or Approved 10/31/2022 10/31/2023 12 12 Encounter Details Date Type Department Care Team (Latest Contact Info) Description 10/31/2022 Transcribe Orders eDH Incoming Referrals [phone] Uzma Campbell MD [address] [email or web address] [id number] Oral-nasal fistula; Sinus disorder; Fracture of orbital [...] sequela documented in this encounter Care Teams Mountain Bike Guide Relationship Specialty Start Date End Date Uzma Campbell MD [address] [place] [address] PCP - General Family Medicine 03/01/22 documented as of this encounter
--- OUTSIDE RECORDS SUMMARY | 2024-11-20 14:26 | XMS_ITS | Encounter Summary ---
Author Organization [facility] Address [facility] [place] [address] Care Team Providers Care Tacker Elastic Band Name Role Phone Uzma Campbell MD Primary Care Provider [phone] Encounter Details Date Type Department Care Team (Late st Contact Info) Description 03/02/2022 Notes Only [place] [address] Brigitte Lamas APRN [facility] [place] [address] Social History Tobacco Use Types Packs/Day Years [...] on filedocumented in this encounter Care Teams Tacker Elastic Band Relationship Specialty Start Date End Date Uzma Campbell MD [address] [place] [address] PCP - General Family Medicine 03/01/22 documented as of this encounter
--- OUTSIDE RECORDS SUMMARY | 2024-11-20 14:26 | XMS_ITS | Encounter Summary ---
Author Organization [facility] Address [address] [place] [address] Care Team Providers Care Copper Plate Lithographer Name Role Phone Unavailable Primary Care Provider Unavailabl e Encounter Details Date Type Department Care Team (Late st Contact Info) Description 09/07/2006 12:51 EST Hospital Encounter [facility] [address] [place] [address] Sukumar Salgado, CHADD [address] [place] [address] [place] [address] Discharge Disposition: Auto Discharge Social History [...]
--- OUTSIDE RECORDS SUMMARY | 2024-11-20 14:26 | XMS_ITS | Encounter Summary ---
Author Organization [place] [address] Care Team Providers Care Division Manager Name Role Phone Uzma Campbell MD Primary Care Provider [phone] Encounter Details Date Type Department Care Team [...] on filedocumented in this encounter Care Teams Division Manager Relationship Specialty Start Date End Date Uzma Campbell MD [address] [place] [address] PCP - General Family Medicine 03/01/22 documented as of this encounter
--- OUTSIDE RECORDS SUMMARY | 2024-11-20 14:26 | XMS_ITS | Encounter Summary ---
Author Organization [facility] Address [address] [place] [address] Care Team Providers Care Physics Department Chair Name Role Phone Uzma Campbell MD Primary Care Provider [phone] Encounter Details Date Type Department Care Team (Late st Contact Info) Description 08/21/2024 Lab Requisition [facility] Pathology & Laboratory Medicine - [facility] [address] [place] [address] Outr Resulting Lab, Provider Social History Tobacco Use Types Packs/Day Years [...] Procedure Name Priority Date/Time Associated Diagnosis Comments SPEP, INCLUDES QUANTITATION OF MONOCLONAL SPIKE PERFORMABLE Today 08/19/2024 11:20 EDT IMMUNOTYPING, SERUM Today 08/19/2024 1 1:20 EDT T3 FREE Routine 08/19/2024 11:20 EDT SPEP, INCLUDES QUANTITATION OF MONOCLONAL SPIKE Routine 08/19/2024 11:20 EDT PROTEIN, TOTAL Today 08/19/2024 11:20 EDT documented in this encounter Results * IMMUNOTYPING, SERUM (08/19/2024 11:20 EDT) Immunotyping, Serum Current interpretation: 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 Monoclonal IgG lambda immunoglobulin identified migrating in the mid gamma region. Confirmed by immunofixation. Reviewed by: Kendal Almonte PhD and Adam Kidd MD 08/25/2024 1408 08/25/2024 15:27 [facility] Blood VENOUS BLOOD / Unknown 08/19/2024 11:20 EDT 08/21/2024 19:41 EDT us Provider Outr Resulting Lab CHEMISTRY & BLOOD GA S ORDERABLES Final Result [facility] [address] [place] [address] * (ABNORMAL) SPEP, INCLUDES QUANTITATION OF MONOCLONAL SPIKE PERFORMABLE (08/19/2024 11:20 EDT) Albumin % 55.1(L) 55.8 - 66.1 % 08/25/2024 16:15 [facility] Albumin g/dL 4.0 3.6 - 5.2 g/dL 08/25/2024 16:15 [facility] Alpha-1 % 4.5 2.9 - 4.9 % 08/25/2024 16:15 [facility] Alpha-1 g/dL 0.30 0.15 - 0.40 g/dL 08/25/2024 16:15 [facility] Alpha-2 % 11.8 7.1 - 11.8 % 08/25/2024 16:15 [facility] Alpha-2 g/dL 0.90 0.50 - 1.00 g/dL 08/25/2024 16:15 [facility] Beta % 12.9 8.4 - 13.1 % 08/25/2024 16:15 [facility] Beta g/dL 0.90 0.60 - 1.20 g/dL 08/25/2024 16:15 [facility] Gamma % 15.7 11.1 - 18.8 % 08/25/2024 16:15 [facility] Gamma g/dL 1.10 0.60 - 1.60 g/dL 08/25/2024 16:15 [facility] Monoclonal Arben % 3.1(H) None Seen % 08/25/2024 16:15 [facility] Comment: IgM kappa = 3.1% IgG lambda = 3.3% Monoclonal Arben g/dL 0.2(H) None Seen g/dL 08/25/2024 16:15 [facility] Comment: IgM kappa = 0.2 g/dl IgG lambda = 0.2 g/dl SPEP Comment Suspicious pattern seen on protein electrophoresis. Immunotyping added by reflex. 08/25/2024 16:15 [facility] Comment:See scanned/suppleme ntary report. Total Protein 7.3 6.3 - 8.2 g/dL 08/25/2024 16:15 [facility] Blood VENOUS BLOOD / Unknown 08/19/2024 11:20 EDT 08/21/2024 19:41 EDT us Provider Outr Resulting Lab CHEMISTRY & BLOOD GA S ORDERABLES Final Result Performing Organization Address City/[facility]/ZIP Co de Phone Number [facility] [address] [place] [address] * PROTEIN, TOTAL (08/19/2024 11:20 EDT) Blood VENOUS BLOOD / Unknown 08/19/2024 11:20 EDT 08/21/2024 19:41 EDT us Provider Outr Resulting Lab CHEMISTRY & BLOOD GA S ORDERABLES Final Result [facility] [address] [place] [address] * T3 FREE (08/19/2024 11:20 EDT) T3, Free 3.9 2.8 - 5.3 pg/mL 08/21/2024 20:13 EDT [facility] Blood VENOUS BLOOD / Unknown 08/19/2024 11:20 EDT 08/21/2024 19:41 EDT us Provider Outr Resulting Lab CHEMISTRY & BLOOD GA S ORDERABLES Final Result [facility] [address] [place], [place] [address] documented in this encounter Visit Diagnoses Not on filedocumented in this encounter Care Teams Physics Department Chair Relationship Specialty Start Date End Date Uzma Campbell MD [address] [place] [address] PCP - General 02/26/09 documented as of this encounter
--- OUTSIDE RECORDS SUMMARY | 2024-11-20 14:26 | XMS_ITS | Encounter Summary ---
Author Organization [facility] [place] [address] Care Team Providers Care Corporate Human Resources Manager Name Role Phone Uzma Campbell MD Primary Care Provider [phone] Reason for Referral * Consultation (Routine) - Closed Specialty Diagnoses / Procedures Referred By Santy davalos Referred To Contact Maxillofacial Surgery Diagnoses Oral fistula ORAL FISTULA Oral fistula following orbital floor fracture and surgery. Adriana Chacon APRN [address] [place] [address] [place] [address] [facility] [address] [place] [phone] Referral ID Status Reason Start Date Expiration Date V isits Requested Visits Authorized [id number] Closed Consult, Test & Treat 07/13/2022 07/13/2023 1 1 Encounter Details Date Type Department Care Team (Late st Contact Info) Description 07/13/2022 Transcribe Orders eDH Incoming Referrals [phone] Adriana Chacon APRN [address] [place] [address] [place] [id number] Oral fistula Social History Tobacco Use Types [...] tissues documented in this encounter Care Teams Corporate Human Resources Manager Relationship Specialty Start Date End Date Uzma Campbell MD [address] [place] [address] PCP - General Family Medicine 03/01/22 documented as of this encounter
--- OUTSIDE RECORDS SUMMARY | 2024-11-20 14:26 | XMS_ITS | Encounter Summary ---
Author Organization [facility] Address [facility] [place] [address] Care Team Providers Care Sales Project Coordinator Name Role Phone Uzma Campbell MD Primary Care Provider [phone] Reason for Visit * Auth/Cert Specialty Diagnoses [...] Expiration Date Visits Re quested Visits Authorized [id number] 1 1 Encounter Details Date Type Department Care Team (Latest Contact Info) Description 03/07/2022 5:42 AM EDT - 03/07/2022 11:39 AM EDT Hospital Encounter [place] [address] Rodriguez Monaco MD [facility] [place] [address] Closed fracture of right zygomaticomaxillary complex, initial [...] with each person. Pain (short term and correction) With any surgery there is some discomfort or pain. We will prescribe medicine for pain. You should take the medicine as prescribed and only as needed. We recommend taking an dcrs-vez-Uezebxf stool softener, such as Colace (docusate) or [...] about scheduling, please contact our administrative officesat [phone] For clinical questions, please call our nurses at [phone] Both offices are open Sunday thru Sunday 8a - 5p. With emergencies after hours, call the hospital grinder operator at [phone] and ask for the Plastic Surgery Resident half section ironer. documented in this encounter Medications at Time [...] Operative Note Patient Name: Derek Cristobal : [id number] MR#: [id number] Case Date: 03/07/2022 Surgeon: Surgeon(s) and Role: [...] Monaco MD - 03/07/2022 8:37 AM EDT [facility] Operative Note Patient Name: Derek Cristobal : [id number] MR#: [id number] Case Date: 03/07/2022 Surgeon: Surgeon(s) and Role: [...] fracture Open Treat Complx Cheek Bone Frac (12462) Yes 03/07/2022 7:53 AM EDT Closed fracture [...] encounter for closed fracture Repair Tooth Socket (47555) Yes 03/07/2022 7:53 AM EDT Closed fracture of right zygomaticomaxillary complex, initial encounter Fracture of orbital floor, right side, initial encounter for closed fracture Repair Eye Blowout, Periorb+Implnt (10970) Yes 03/07/2022 7:53 AM EDT Closed fracture [...] prep) documented in this encounter Care Teams Sales Project Coordinator Relationship Specialty Start Date End Date Uzma Campbell MD [address] [place] [address] PCP - General Family Medicine 03/01/22 documented as of this encounter
--- OUTSIDE RECORDS SUMMARY | 2024-11-20 14:26 | XMS_ITS | Encounter Summary ---
Author Organization [facility] Address [facility] [place] [address] Care Team Providers Care Testing Machine Operator Name Role Phone Uzma Campbell MD Primary Care Provider [phone] Reason for Visit * Auth/Cert Specialty Diagnoses [...] Expiration Date Visits Re quested Visits Authorized [id number] 1 1 Encounter Details Date Type Department Care Team (Late st Contact Info) Description 03/07/2022 7:54 AM EDT Anesthesia Event [place] [address] Eligio Garces MD Cramer, David [facility] [place] [address] Anesthesia Record Procedure Summary Procedure Name Responsible [...] 0659; metacarpal vein (top of hand), left; nyoz-lrp-hhoohi catheter system; Anatomical Landmarks; 20 gauge, 1 [...] Procedure Summary Date: 03/07/22 Room / Location: [facility] OR [facility] MAIN OR Anesthesia Start: 4 Anesthesia Stop: 1044 Procedures: OPEN TREATMENT OF ORBITAL FLOOR BLOWOUT [...] All Anesthesia Providers: Anesthesiologist: Eligio Garces MD SITE PROMOTION AGENT: Jacinto Cody CRNA Vitals Value Taken Time BP 153/106 03/07/22 1115 Temp Pulse 211 03/07/22 1043 Resp 16 03/07/22 1110 SpO2 95 % 03/07/22 1117 Pain Level 0 03/07/22 1050 Vitals shown include unvalidated device data. Patient Location: PACU/SDP Level of Consciousness: Awake and Alert Pain [...] 15.1 oz) Last edited 03/07/22 0612 by FAITH Airway Assessment: Mallampati: II Cardiovascular Assessment: system normal Pulmonary Assessment: unlabored breathing Dental Assessment: Misc Assessment: IV access: Peripheral line Last Filed Perioperative Cognitive Screening None Anesthesia Plan: ASA 2 general, with a(n) intravenous induction Orbital floor fracture Takes 110mg methadone qd. [facility] GA/oralRAE Informed Consent: Anesthetic plan and risks discussed with patient. Plan discussed with SITE PROMOTION AGENT. Anesthesia Screening documented in this encounter Plan [...] mg documented in this encounter Care Teams Testing Machine Operator Relationship Specialty Start Date End Date Uzma Campbell MD [address] [place] [address] PCP - General Family Medicine 03/01/22 documented as of this encounter
--- OUTSIDE RECORDS SUMMARY | 2024-11-20 14:26 | XMS_ITS | Encounter Summary ---
Author Organization [facility] [place] [address] Care Team Providers Care Maintenance Mechanic Millwright Name Role Phone Uzma Campbell MD Primary Care Provider [phone] Encounter Details Date Type Department Care Team (Late st Contact Info) Description 05/09/2023 Ancillary Procedure Radiology at [facility] [address] [place] [phone] Jennifer Becerril MD [address] [facility] [address] [place] [address] Social History Tobacco Use Types Packs/Day Years [...] Becerril MD IMG FILM LIBRARY ORDERABLES [place], [place] documented in this encounter Visit Diagnoses Not on filedocumented in this encounter Care Teams Maintenance Mechanic Millwright Relationship Specialty Start Date End Date Uzma Campbell MD [address] [place] [address] PCP - General Family Medicine 03/01/22 documented as of this encounter
--- OUTSIDE RECORDS SUMMARY | 2024-11-20 14:26 | XMS_ITS | Encounter Summary ---
Author Organization [facility] Address [address] [place] [address] Care Team Providers Care Psychiatric Technician Assistant Name Role Phone Uzma Campbell MD Primary Care Provider [phone] Encounter Details Date Type Department Care Team (Late st Contact Info) Description 09/07/2006 Before PRISM Converted Visit (Maple) [facility] - Maple conversion [address] [place] [address] Sukumar Salgado NP [address] [place] [address] [place] [address] Social History Tobacco Use Types Packs/Day Years Used Date Smoking Tobacco: Never Assessed Sex and Gender Information Value Date Recorded Sex Assigned at Not on file Legal Sex Male 18:15 EST Gender Identity Not on file Sexual Orientation Not on file documented as of this encounter Consult Notes * Sukumar Salgado NP - 10/15/2009 1356 EST DIVISION OF HEMATOLOGY / ONCOLOGY CONSULTATION [...] pleuritic chestpain and hemoptysis. He reported to [facility] in [place], where a CT angiogram documented findings consistent [...] illness, surgery, ortrauma. He was commuting from [facility] to [place] on a daily basis for work, which [...] HISTORY: He is single, lives in the [facility] area with his girlfriend. He also lives with his 3 daughters, aged 12, 2, and 10 months, and is expecting another child. HABITS: He smokes a heff-cpae-ay-a-pack daily for the past 16 years. He uses no alcohol and no illicit drugs. FAMILY HISTORY: The patient is not in close contact with his family members, but mother is alive and well at age 56 with no history of thrombosis. Father at age 54. He was obese, hypertension, and diabetic who had a sudden questionable to [place]. He has 2 sisters and 1 brother, [...] CHADD Salgado P - TFM Job ID: [id number] Document ID: [id number] cc: NADINE Torrez documented in this encounter Plan of Treatment Not on file documented as of this encounter Visit Diagnoses Not on filedocumented in this encounter Care Teams Psychiatric Technician Assistant Relationship Specialty Start Date End Date Uzma Campbell MD [address] [place] [address] PCP - General 02/26/09 documented as of this encounter
--- OUTSIDE RECORDS SUMMARY | 2024-11-20 14:26 | XMS_ITS | Encounter Summary ---
Author Organization [facility] Address [facility] [place] [address] Care Team Providers Care Smalltalk Developer Name Role Phone Uzma Campbell MD Primary Care Provider [phone] Reason for Visit * Reason Comments Follow Up Surgery Encounter Details Date Type Department Care Team (Late st Contact Info) Description 03/14/2022 9:40 AM EDT Office [place] [address] Brigitte Lamas APRN [facility] [place] [address] Surgery follow-up Social History Tobacco Use Types [...] Discussed that I recommend he see an manager of program. [facility] and will discuss with his PCP later this week. Plan: Follow up: 3 months. He will follow up with his PCP regarding anticoagulation and an manager of program closer to his home. I, Octavia Caba, [...] surgery documented in this encounter Care Teams Smalltalk Developer Relationship Specialty Start Date End Date Uzma Campbell MD [address] [place] [address] PCP - General Family Medicine 03/01/22 documented as of this encounter
--- OUTSIDE RECORDS SUMMARY | 2024-11-20 14:26 | XMS_ITS | Encounter Summary ---
Author Organization [facility] Address [facility] [place] [address] Care Team Providers Care High School Assistant Football Coach Name Role Phone Uzma Campbell MD Primary Care Provider [phone] Reason for Visit * Consultation (Routine) - Closed Specialty Diagnoses / Procedures Referred By Contsean t Referred To Contact Plastic Surgery Diagnoses Oral-nasal fistula Sinus disorder Fracture of orbital floor, right side, sequela Uzma Campbell MD [address] [place] [address] [facility] Surg [address] [place] [address] Referral ID Status Reason Start Date Expiration Date V isits Requested Visits Authorized [id number] Closed Consult, Test & Treat PCP Updated and/or Approved 10/31/2022 10/31/2023 12 12 Encounter Details Date Type Department Care Team (Late st Contact Info) Description 03/26/2023 9:30 AM EDT Office [place] [address] Rodriguez Linn MD [facility] [place] [address] Surgery follow-up Social History Tobacco [...] surgery documented in this encounter Care Teams High School Assistant Football Coach Relationship Specialty Start Date End Date Berrian, Uzma M, MD [address] [place] [address] PCP - General Family Medicine 03/01/22 documented as of this encounter
--- OUTSIDE RECORDS SUMMARY | 2024-11-20 14:26 | XMS_ITS | Encounter Summary ---
Author Organization [place] [address] Care Team Providers Care Fixed Income Analyst Name Role Phone Uzma Campbell MD Primary Care Provider [phone] Encounter Details Date Type Department Care Team (Late st Contact Info) Description 05/30/2023 Ancillary Procedure Radiology at [facility] [address] [place] [address] Jennifer Becerril MD [address] [facility] [place] [address] Social History Tobacco Use Types Packs/Day Years [...] Becerril MD IMG FILM LIBRARY ORDERABLES DH [place], [place] documented in this encounter Visit Diagnoses Not on filedocumented in this encounter Care Teams Fixed Income Analyst Relationship Specialty Start Date End Date Uzma Campbell MD [address] [place] [address] PCP - General Family Medicine 03/01/22 documented as of this encounter
--- OUTSIDE RECORDS SUMMARY | 2024-11-20 14:26 | XMS_ITS | Referral Summary ---
Author Organization [facility] Address [address] [place] [address] Care Team Providers Care Threat Analyst Name Role Phone Uzma Campbell MD Primary Care Provider [phone] Social History Tobacco Use Types Packs/Day Years Used Date Smoking Tobacco: Never Assessed Sex and Gender Information Value Date Recorded Sex Assigned at Not on file Legal Sex Male 18:15 EST Gender Identity Not on file Sexual Orientation Not on file Plan of Treatment Not on file Care Teams Threat Analyst Relationship Specialty Start Date End Date Uzma Campbell MD [address] [place] [address] PCP - General 02/26/09
--- OUTSIDE RECORDS SUMMARY | 2024-11-20 14:26 | XMS_ITS | Encounter Summary ---
Author Organization [facility] Address [address] [place] [address] Care Team Providers Care Organ Tuner Name Role Phone Unavailable Primary Care Provider Unavailabl e Encounter Details Date Type Department Care Team (Late st Contact Info) Description 06/11/2006 13:54 EDT Hospital Encounter [facility] conversion [address] [place], [place] [address] He Mayorga PA-C [address] [facility] [place] [address] Discharge Disposition: Auto Discharge Social [...] at L5-S1. He Mayorga PA-C [facility] DIAGNOSTIC IMAGING ORDERA BLES Final Result documented in this encounter Visit Diagnoses Not on filedocumented in this encounter
--- OUTSIDE RECORDS SUMMARY | 2024-11-20 14:26 | XMS_ITS | Encounter Summary ---
Author Organization [facility] Address [address] [place] [address] Care Team Providers Care Geothermal Installer Name Role Phone Unavailable Primary Care Provider Unavailabl e Encounter Details Date Type Department Care Team (Late st Contact Info) Description 08/28/2008 9:24 EST Hospital Encounter [facility] [address] [place], [place] [address] Gerson Flynn MD [address] [facility], [facility] 2 [place] [address] Social History Tobacco Use Types [...] Activity 94 76 - 151 % [facility] Comment: a. 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 [...] 08/28/2008 11:0 9 EST 08/28/2008 11:12 EST us Gerson Flynn MD HEMATOLOGY & PF4 ORDERABLES Mary brunson Result [facility] [address] [place] [address] * PROTEIN C CLOT (08/28/2008 11:09 EST) Pathologist [facility] Protein C Clot 162 77 - 183 [...] EST Gerson Flynn MD HEMATOLOGY & PF4 ORDERABLES Mary l Result Performing Organization Address [facility] Co de Phone Number [facility] [address] [place] [address] * PROTEIN S ANTIGEN (08/28/2008 11:09 EST) Protein S Ag, Free 117Reference range: 65 to 160 Unit: % Performed or Referred by: [facility] Dpt of Lab Med and Path, [address] [place] [address], Lab Dir: MD [facility] 08/28/2008 11:0 9 EST 08/28/2008 11:12 EST Gerson Flynn MD HEMATOLOGY & PF4 ORDERABLES Mary l Result Performing Organization Address [facility] Co de Phone Number [facility] [address] [place] [address] * (ABNORMAL) PROTEIN C ANTIGEN (08/28/2008 11:09 EST) Protein C Antigen 133Reference range: 60 to 125 Unit: % Performed or Referred by: [facility] Dpt of Lab Med and Path, [facility] [address] [place] [address], Lab Dir: Leobardo Nicole III, MD(H) [facility] 08/28/2008 11:0 9 EST 08/28/2008 11:12 EST Gerson Flynn MD HEMATOLOGY & PF4 ORDERABLES Mary l Result Performing Organization Address City/[facility]/ZIP Co de Phone Number [facility] [address] [place] [address] * (ABNORMAL) FACTOR 8 ASSAY (08/28/2008 11:09 EST) Factor 8 Assay 308(H) 61 - 192 % [facility] 08/28/2008 11:0 9 EST 08/28/2008 11:12 EST us Gerson Flynn MD HEMATOLOGY & PF4 ORDERABLES Mary brunson Result [facility] [address] [place] [address] documented in this encounter Visit Diagnoses Not on filedocumented in this encounter
--- OUTSIDE RECORDS SUMMARY | 2024-11-20 14:26 | XMS_ITS | Encounter Summary ---
Author Organization [facility] [place] [address] Care Team Providers Care Statistical Typist Name Role Phone Uzma Campbell MD Primary Care Provider [phone] Reason for Referral * Consultation (Routine) - Closed Specialty Diagnoses / Procedures Referred By Contsean t Referred To Contact Neurology Diagnoses History of traumatic brain injury Uzma Campbell MD [address] [place] [address] [facility] Neurology [address] [place] [phone] Referral ID Status Reason Start Date Expiration Date V isits Requested Visits Authorized [id number] Closed Consult, Test & Treat PCP Updated and/or Approved 06/13/2023 06/12/2024 6 6 Encounter Details Date Type Department Care Team (Latest Contact Info) Description 06/13/2023 Transcribe Orders eDH Incoming Referrals [phone] Uzma Campbell MD [address] [employer] [place] [id number] History of traumatic brain injury Social History [...] injury documented in this encounter Care Teams Statistical Typist Relationship Specialty Start Date End Date Uzma Campbell MD [address] [place] [address] PCP - General Family Medicine 03/01/22 documented as of this encounter
--- OUTSIDE RECORDS SUMMARY | 2024-11-20 14:26 | XMS_ITS | Encounter Summary ---
Author Organization [facility] Address [address] [place] [address] Care Team Providers Care Occupational Therapy Technician Name Role Phone Uzma Campbell MD Primary Care Provider Encounter Details Date Type Department Care Team (Late st Contact Info) Description 01/10/2006 Before PRISM Converted Visit (Maple) [facility] - Maple conversion [address] [place] [address] He Beaulieu MD [address] [place] [address] [place] [address] Social History Tobacco Use Types Packs/Day Years Used Date Smoking Tobacco: Never Assessed Sex and Gender Information Value Date Recorded Sex Assigned at Not on file Legal Sex Male 18:15 EST Gender Identity Not on file Sexual Orientation Not on file documented as of this encounter Progress Notes * He Beaulieu MD - 08/27/2009 1645 EST Spine [place] [facility] (SpINE) [facility] [address] [facility] [address] [facility] [address] January 10, 2007 V40 [facility] [address] [place] [address] To Whom It May Concern: We have [...] He Beaulieu MD 01/14/2007 11:50 Bobby Beaulieu, MDRtal Beaulieu MD He Beaulieu MD - He Beaulieu MD A - sjd Job ID: [id number] Document ID: [id number] cc: NADINE Torrez V[address] [employer], [address] [address]* Mr. Derek Cristobal, [address], [place] [address]* Document ID: [id number] cc: NADINE Torrez [address] [employer], [address]* Mr. Derek Cristobal, [address], [place], [place] * documented in this encounter Plan of Treatment Not on file documented as of this encounter Visit Diagnoses Not on filedocumented in this encounter Care Teams Occupational Therapy Technician Relationship Specialty Start Date End Date Uzma Campbell MD [address] [place] [address] PCP - General 02/26/09 documented as of this encounter
--- OUTSIDE RECORDS SUMMARY | 2024-11-20 14:26 | XMS_ITS | Encounter Summary ---
Author Organization [facility] Address [address] [place] [address] Care Team Providers Care House Moving Supervisor Name Role Phone Uzma Campbell MD Primary Care Provider [phone] Encounter Details Date Type Department Care Team (Late st Contact Info) Description 09/20/2007 Before PRISM Converted Visit (Maple[facility] - Maple conversion [address] [place] [address] Sukumar Salgado NP [address] [place] [address] [place] [address] Social History Tobacco Use Types Packs/Day [...] LABORATORY DATA The Coumadin flow sheet form [facility] was reviewed and placed on the chart [...] warfarin. 2. He will return to [facility] on October 07, 2007, for a thrombosis panel. This will include factor V Leiden, [id number], factor VIII, and an evaluation of deficiencies [...] Sukumar Salgado NP - nathanael Job ID: [id number] Doc ID: [id number] cc: Gerson Flynn MD [facility]* D: - Sukumar Salgado NP - nathanael Job ID: [id number] Doc ID: [id number] cc: Gerson Flynn MD [facility]* documented in this encounter Plan of Treatment Not on file documented as of this encounter Visit Diagnoses Not on filedocumented in this encounter Care Teams House Moving Supervisor Relationship Specialty Start Date End Date Uzma Campbell MD [address] [place] [address] PCP - General 02/26/09 documented as of this encounter
--- OUTSIDE RECORDS SUMMARY | 2024-11-20 14:26 | XMS_ITS | Clinical Summary ---
Author Organization [facility] Address [address] [place] [address] Care Team Providers Care Country Printer Apprentice Name Role Phone Uzma Campbell MD Primary Care Provider [phone] Social History Tobacco Use Types Packs/Day Years [...] 3-dose series) 07/29 COVID-19 Vaccine ( season) 2024 Care Teams Country Printer Apprentice Relationship Specialty Start Date End Date Uzma Campbell MD [address] [place] [address] PCP - General 02/26/09
--- OUTSIDE RECORDS SUMMARY | 2024-11-20 14:26 | XMS_ITS | Encounter Summary ---
Author Organization [facility] [address] Care Team Providers Care Daycare Manager Name Role Phone Uzma Campbell MD Primary Care Provider [phone] Encounter Details Date Type Department Care Team (Late st Contact Info) Description 05/30/2023 12:05 AM EDT Ancillary Procedure Radiology at [facility] [address] [facility] [place] [address] Jennifer Becerril MD [address] [facility] [place] [address] Social History Tobacco Use Types Packs/Day Years [...] Becerril MD IMG FILM LIBRARY ORDERABLES DH [place], [place] documented in this encounter Visit Diagnoses Not on filedocumented in this encounter Care Teams Daycare Manager Relationship Specialty Start Date End Date Uzma Campbell MD [address] [place] [address] PCP - General Family Medicine 03/01/22 documented as of this encounter
--- OUTSIDE RECORDS SUMMARY | 2024-11-20 14:26 | XMS_ITS | Encounter Summary ---
Author Organization [facility] Address [address] [place] [address] Care Team Providers Care Microsoft Windows Engineer Name Role Phone Uzma Campbell MD Primary Care Provider [phone] Encounter Details Date Type Department Care Team (Late st Contact Info) Description 02/28/2007 Before PRISM Converted Visit (Maple) [facility] - Maple conversion [address] [place] [address] Sukumar Salgado NP [address] [place] [address] [place] [address] Social History Tobacco Use Types Packs/Day Years Used Date Smoking Tobacco: Never Assessed Sex and Gender Information Value Date Recorded Sex Assigned at Not on file Legal Sex Male 18:15 EST Gender Identity Not on file Sexual Orientation Not on file documented as of this encounter Progress Notes * Sukumar Salgado NP - 08/28/2009 4009 EST DIVISION OF HEMATOLOGY / ONCOLOGY PROGRESS/FOLLOWUP NOTE - 03/03/2007 February 282006 Uzma Campbell MD [address] [place] [address] RE: Derek Cristobal Dear Dr. 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 I forwarded a copy of todays office note for the details of our encounter. Thank you for your referral of this nice patient. I will plan to see him back in six months. Pleasecall me at [phone] if you have any questions regarding his care or our recommendations. Sincerely, Signed by Sukumar Salgado NP 03/05/2007 11:40 Malik Villalba NP Sukumar Salgado NP - CHADD Salgado P - lg Job ID: [id number] Document ID: [id number] cc: Uzma Campbell MD D: - Sukumar Salgado NP T: 7:31 P - lg Job ID: [id number] Document ID: [id number] cc: Uzma Campbell MD * Sukumar Salgado [...] 4. Cymbalta 60 mg daily. 5. Hydrocodone/APAP , 1 t.i.d. p.r.n. REVIEW OF SYSTEMS Done [...] with reporting for weekly coag checks at [facility]. I have explained to him that there [...] NP Sukumar Salgado NP - CHADD Salgado A - GREG Job ID: [id number] Document ID: [id number] cc: Uzma Campbell MD documented in this encounter Plan of Treatment Not on file documented as of this encounter Visit Diagnoses Not on filedocumented in this encounter Care Teams Microsoft Windows Engineer Relationship Specialty Start Date End Date Uzma Campbell MD [address] [place] [address] PCP - General 02/26/09 documented as of this encounter
--- OUTSIDE RECORDS SUMMARY | 2024-11-20 14:26 | XMS_ITS | Encounter Summary ---
Author Organization [facility] Address [address] [place] [address] Care Team Providers Care Saddle Lining Stitcher Name Role Phone Unavailable Primary Care Provider Unavailabl e Encounter Details Date Type Department Care Team (Late st Contact Info) Description 09/20/2007 12:59 EST Hospital Encounter [facility] [address] [place] [address] Sukumar Salgado, CHADD [address] [place] [address] [place] [address] Discharge Disposition: Auto Discharge Social History [...]
--- OUTSIDE RECORDS SUMMARY | 2024-11-20 14:27 | XMS_ITS | Encounter Summary ---
Author Organization [facility] Address [facility] [place] [address] Care Team Providers Care R&D Engineer Name Role Phone Unavailable Primary Care Provider Unavailabl e Encounter Details Date Type Department Care Team (Late st Contact Info) Description 02/28/2022 1:30 AM EDT Ancillary Procedure Radiology Library at [facility] [place] [place] [address] Kortney Ward MD Social History Tobacco Use Types Packs/Day Years [...] CT Chest (02/28/2022 1:23 AM EDT) Narrative JACQUELINE - 02/28/2022 1:23 AM EDT This exam is auto-finalizing. It's purpose is for storage only. Kortney Ward MD IMG FILM LIBRARY ORD ERABLES [place] documented in this encounter Visit Diagnoses Not on filedocumented in this encounter
--- OUTSIDE RECORDS SUMMARY | 2024-11-20 14:27 | XMS_ITS | Encounter Summary ---
Author Organization [facility] [place] [address] Care Team Providers Care Soil Fertility Specialist Name Role Phone Unavailable Primary Care Provider Unavailabl e Encounter Details Date Type Department Care Team (Late st Contact Info) Description 06/25/2019 Ancillary Procedure Radiology at [facility] [address] [place] [address] Jennifer Becerril MD [address] [facility] [address] [place] [address] Social History Tobacco Use Types Packs/Day Years [...] Jennifer Becerril MD IMG FILM LIBRARY ORDERABLES [place], [place] documented in this encounter Visit Diagnoses Not on filedocumented in this encounter
--- OUTSIDE RECORDS SUMMARY | 2024-11-20 14:27 | XMS_ITS | Encounter Summary ---
Author Organization [facility] [place] [address] Care Team Providers Care Work Order Detailer Name Role Phone Uzma Campbell MD Primary Care Provider [phone] Reason for Referral * Consultation (Emergency) - Closed Specialty Diagnoses / Procedures Referred By Contact Referred To Contact Ophthalmology Diagnoses Closed fracture of right zygomaticomaxillary complex, initial encounter Fracture of orbital floor, right side, initial encounter for closed fracture Rodriguez Linn MD [facility] [place] [address] [facility] [address] [place] [address] Referral ID Status Reason Start Date Expiration Date V isits Requested Visits Authorized [id number] Closed Consult, Test & Treat 03/01/2022 03/01/2023 1 1 Reason for Visit * Consultation (Routine) - Closed Specialty Diagnoses / Procedures Referred By Contsean davalos Referred To Contact Plastic Surgery Diagnoses Orbital fx Jose F Antunez MD [address] [place] [address] [place] [address] [facility] [address] [place] [phone] Referral ID Status Reason Start Date Expiration Date V isits Requested Visits Authorized [id number] Closed Consult, Test & Treat 02/28/2022 02/28/2023 1 1 Encounter Details Date Type Department Care Team (Latest Contact Info) Description 03/01/2022 11:15 AM EDT Office Visit [place] [address] Rodriguez Linn MD [facility] [place] [address] Closed fracture of right zygomaticomaxillary complex, initial [...] acinder block. The patient reported to the [facility] ED that day where he was [...] broken, any infected teeth deemed necessary CPT: 49131, 37670, D7220 [facility] ORIF multiple approach: 90022 Surgical site: face Side: right Anesthesia: General [...] fracture documented in this encounter Care Teams Work Order Detailer Relationship Specialty Start Date End Date Uzma Campbell MD [address] [place] [address] PCP - General Family Medicine 03/01/22 documented as of this encounter
--- OUTSIDE RECORDS SUMMARY | 2024-11-20 14:27 | XMS_ITS | Encounter Summary ---
Author Organization [facility] Address [facility] [place] [address] Care Team Providers Care Physician Ophthalmologist Name Role Phone Uzma Campbell MD Primary Care Provider [phone] Reason for Visit * Reason Comments Chest Pain Encounter Details Date Type Department Care Team (Late st Contact Info) Description 03/01/2022 3:28 PM EDT - 03/01/2022 5:17 PM EDT [place] [address] Lulú Roa MD [facility] [place] [address] Rib pain on left side Discharge Disposition: [...] sent through Care Everywhere. * Rib Contusion (Cuban) documented in this encounter Medications at Time [...] striking his left side. He went to [facility] where he had a CTscan of his [...] up plan. Michelle Gillis MD Resident 03/01/22 [id number] Associated attestation - Lulú Roa MD - [...] (Bezet) 526 ms MUSE SYSTEM Calculated P Buhl 61 degrees MUSE SYSTEM Calculated R Buhl 42 degrees MUSE SYSTEM Calculated T Buhl 70 degrees MUSE SYSTEM INTERPRETATION Sinus rhythm [...] patch documented in this encounter Care Teams Physician Ophthalmologist Relationship Specialty Start Date End Date Uzma Campbell MD [address] [place] [address] PCP - General Family Medicine 03/01/22 documented as of this encounter
--- OUTSIDE RECORDS SUMMARY | 2024-11-20 14:27 | XMS_ITS | Encounter Summary ---
Author Organization [facility] Address [facility] [place] [address] Care Team Providers Care Accredited Pharmacy Technician Name Role Phone Unavailable Primary Care Provider Unavailabl e Encounter Details Date Type Department Care Team (Late st Contact Info) Description 02/28/2022 1:25 AM EDT Ancillary Procedure Radiology Library at [facility] [place] [address] Kortney Ward MD Social History Tobacco Use [...] CT Spine (02/28/2022 1:20 AM EDT) Narrative JACQUELINE - 02/28/2022 1:20 AM EDT This exam is auto-finalizing. It's purpose is for storage only. Kortney Ward MD IMG FILM LIBRARY ORD ERABLES [place] documented in this encounter Visit Diagnoses Not on filedocumented in this encounter
--- OUTSIDE RECORDS SUMMARY | 2024-11-20 14:27 | XMS_ITS | Encounter Summary ---
Author Organization [facility] Address [facility] [place] [address] Care Team Providers Care Jewel Corner Brushing Machine Operator Name Role Phone Unavailable Primary Care Provider Unavailabl e Encounter Details Date Type Department Care Team (Late st Contact Info) Description 02/28/2022 Notes Only Plastic Surgery at [facility] [place] [address] Richar Bose MD [facility] [place] [address] Social History Tobacco Use Types Packs/Day Years [...]
--- OUTSIDE RECORDS SUMMARY | 2024-11-20 14:27 | XMS_ITS | Encounter Summary ---
Author Organization [facility] Address [facility] [place] [address] Care Team Providers Care Rehabilitation Team Lead Name Role Phone Unavailable Primary Care Provider Unavailabl e Encounter Details Date Type Department Care Team (Late st Contact Info) Description 02/27/2022 Ancillary Procedure Radiology Library at [facility] [place] [address] Kortney Ward MD Social History Tobacco Use [...] IMG FILM LIBRARY ORD ERABLES JACQUELINE [place] documented in this encounter Visit Diagnoses Not on filedocumented in this encounter
--- OUTSIDE RECORDS SUMMARY | 2024-11-20 14:27 | XMS_ITS | Encounter Summary ---
Author Organization [facility] Address [facility] [place] [address] Care Team Providers Care Single Stroke Preformer Name Role Phone Unavailable Primary Care Provider Unavailabl e Encounter Details Date Type Department Care Team (Latest Contact Info) Description 02/28/2022 Orders [place] [address] Richar Bose MD [facility] [place] [address] Closed fracture of right zygomaticomaxillary complex, initial [...]
--- OUTSIDE RECORDS SUMMARY | 2024-11-20 14:27 | XMS_ITS | Encounter Summary ---
Author Organization [facility] [place] [address] Care Team Providers Care Operations Assistant Name Role Phone Unavailable Primary Care Provider Unavailabl e Encounter Details Date Type Department Care Team (Late st Contact Info) Description 02/27/2022 12:05 AM EDT Ancillary Procedure Radiology Library at [facility] [place] [address] Kortney Ward MD Social History Tobacco Use [...] CT Face (02/27/2022 12:05 AM EDT) Narrative JACQUELINE - 02/28/2022 1:27 AM EDT This exam is auto-finalizing. It's purpose is for storage only. Kortney Ward MD IMG FILM LIBRARY ORD ERABLES [place]ACQUELINE [place] documented in this encounter Visit Diagnoses Not on filedocumented in this encounter
--- OUTSIDE RECORDS SUMMARY | 2024-11-20 14:27 | XMS_ITS | Encounter Summary ---
Author Organization [facility] [place] [address] Care Team Providers Care Stock Counter Name Role Phone Unavailable Primary Care Provider Unavailabl e Encounter Details Date Type Department Care Team (Late st Contact Info) Description 09/03/2014 Ancillary Procedure Radiology at [facility] [address] [place] [address] Jennifer Becerril MD [address] [place] [address] Social History Tobacco Use Types Packs/Day Years [...] Jennifer Becerril MD IMG FILM LIBRARY ORDERABLES [place], [place] documented in this encounter Visit Diagnoses Not on filedocumented in this encounter
--- OUTSIDE RECORDS SUMMARY | 2024-11-20 14:27 | XMS_ITS | Encounter Summary ---
Author Organization [facility] [place] [address] Care Team Providers Care Inspector Timers Name Role Phone Uzma Campbell MD Primary Care Provider [phone] Reason for Visit * Consultation (Emergency) - Closed Specialty Diagnoses / Procedures Referred By Contact Referred To Contact Ophthalmology Diagnoses Closed fracture of right zygomaticomaxillary complex, initial encounter Fracture of orbital floor, right side, initial encounter for closed fracture Jn Linn MD [facility] [place] [address] [facility] Ophthalmology [address] [place] [id number] Referral ID Status Reason Start Date Expiration Date V isits Requested Visits Authorized [id number] Closed Consult, Test & Treat 03/01/2022 03/01/2023 1 1 Encounter Details Date Type Department Care Team (Latest Contact Info) Description 03/01/2022 12:40 PM EDT Office [place] [address] Ange Akins MD [facility] [place] [address] Subconjunctival hemorrhage of right eye [...] -- Jun Smith MD PGY-2, Ophthalmology Resident #[id number] 03/01/2022 4:04 PM I saw the patient [...] them as documented. 03/01/2022 Ange Akins MD P[employer] Mut[employer] Ticket Seller, Pediatric Ophthalmology Section of Ophthalmology, Department of Surgery [facility] Pager #[phone] documented in this encounter Plan of Treatment Scheduled Referrals Name Type Priority Associated Diagnoses Orde r Schedule Referral to Ophthalmology Outpatient Referral STAT Closed fracture of right zygomaticomaxillary complex, initial encounter Fracture of orbital floor, right side, initial encounter for closed fracture Ordered: 03/01/2022 documented as of this encounter Visit Diagnoses Diagnosis Subconjunctival hemorrhage of right eye documented in this encounter Care Teams Inspector Timers Relationship Specialty Start Date End Date Uzma Campbell MD [address] [place] [address] PCP - General Family Medicine 03/01/22 documented as of this encounter
--- OUTSIDE RECORDS SUMMARY | 2024-11-20 14:27 | XMS_ITS | Encounter Summary ---
Author Organization [facility] [place] [address] Care Team Providers Care Envelope Fold Operator Name Role Phone Unavailable Primary Care Provider Unavailabl e Encounter Details Date Type Department Care Team (Late st Contact Info) Description 02/28/2022 [place] [address] Kandy Andersen Social History Tobacco Use Types [...]
[2024-11-20 16:12] LABS: Abs Immature Grans 0.01 10^3/uL (0.0-0.06); Absolute Basophil Count 0.04 10^3/uL (0.0-0.2); Absolute Eosinophil Count 0.17 10^3/uL (0.0-0.7); Absolute Lymphocyte Count 1.61 10^3/uL (1.2-3.4); Absolute Monocyte Count 0.56 10^3/uL (0.1-0.8); Absolute Neutrophil Count 2.68 10^3/uL (1.2-6.7); Basophils % 0.8 %; Eosinophils % 3.4 %; HCT 43.2 % (40.0-50.0); HGB 14.1 g/dL (13.5-17.5); Immature Grans % 0.2 %; Lymphocytes % 31.8 %; MCH 29.2 pg (27.0-33.0); MCHC 32.6 % (32.0-36.0); MCV 89 fL (80-95); Neutrophils % 52.8 %; Platelet Count 129 10^3/uL (130-400); RBC 4.83 10^6/uL (4.36-5.78); RDW 13.4 % (11.8-14.1); RDW-SD 44.2 fL; WBC 5.07 10^3/uL (4.4-10.8)
[2024-11-20 16:19] LABS: Iron 84 ug/dL (65-175)
[2024-11-20 17:13] LABS: Hemoglobin A1C 5.6 % (<5.7)
[2024-11-20 17:21] LABS: Vitamin D 25 Total 22.5 ng/mL (30-100)
== END 2024-11-20 14:25 | disposition home or self-care (01) ==
LOC: NCHCN 14:24
PROVIDERS: PCP Family Medicine; Visit Provider Family Medicine
DX: D64.9 Anemia, unspecified (principal); E55.9 Vitamin D deficiency, unspecified
CPT/HCPCS: 82306; 83036; 83540; 85025

== ENCOUNTER 2025-06-26 09:53 | Emergency (ER) | payer MEDICAID, SELFPAY ==
[2025-06-26 09:54] VITALS: BP 137/84; PULSE 85; RESP 18; TEMP 37.3; O2SAT 97
[2025-06-26 10:25] VITALS: BP 137/84; PULSE 85; RESP 18; TEMP 37.3; O2SAT 97
--- NOTE | 2025-06-26 10:27 | W.ED.GENAD ---
Discharge Plan Disposition Patient Disposition: Home Condition: Good Discharge Details Clinical Impression: Cellulitis of back Primary Care Provider: Uzma Campbell V ED Provider: Yu Dan Home Meds and New Rx's Prescriptions: No Action albuterol sulfate 90 mcg/actuation HFA aerosol inhaler 2 puff inhalation Q6H PRN methadone 10 mg/5 mL solution 10 mg PO DAILY Patient Comments: Pt unsure what dose he takes Rx Instructions: Dose Adjusted per BAART atorvastatin 20 mg tablet 20 mg PO QHS Patient Comments: not taking lisinopril 10 mg tablet 10 mg PO DAILY Patient Comments: not taking clonidine HCl 0.1 mg tablet 0.1 mg PO QHS Patient Comments: not taking cholecalciferol (vitamin D3) 10 mcg (400 unit) capsule 10 mcg PO DAILY duloxetine 60 mg capsule,delayed release(DR/EC) 60 mg PO DAILY gabapentin 400 mg capsule 400 mg PO DAILY losartan 50 mg tablet 50 mg PO DAILY budesonide-formoterol [Symbicort] 80-4.5 mcg/actuation HFA aerosol inhaler 1 puff inhalation ONCE (DME) lancets 1 EACH misc 1 ea Miscellaneous TID 30 Days Qty: 100 3RF (DME) Blood Glucose Test 1 EACH strip 1 ea Miscellaneous TID 30 Days Qty: 100 3RF Rx Instructions: Verio One Touch delicata Eliquis 5 mg tablet 1 tab PO BID Patient Comments: TAKE ONE TABLET BY MOUTH TWICE A DAY penicillin V potassium 500 mg tablet 500 mg PO QID Qty: 39 0RF Discharge Instructions Instructions: Cellulitis (Skin Infection), Adult ED Additional Instructions: Please call your primary care provider to schedule follow-up appointment if you are not noticing significant improvement by Sunday You are being treated with an antibiotic called clindamycin. Please take the full course as prescribed. I recommend that you take this with Activia yogurt to help prevent antibiotic associated diarrhea. Please do warm compresses with a warm washcloth for 15 to 20 minutes at a time 4-5 times a day. Wash the area with antibacterial soap and cover with a clean bandage. For pain you may use acetaminophen 650 mg every 6 hours for discomfort. Return to emergency care if you develop new fever/chills, worsening of redness/swelling/pain, increased pus drainage despite treatment, or if you are very worried you need to be rechecked again immediately. Discharge Data Discharge Date/Time-TO BE ENTERED AT DEPARTURE: 06/26/25 11:02 HPI <Yu Mccullough - Last Filed: 06/26/25 11:32> General Date/Time Provider Initiated Documentation: 06/26/25 09:54. HPI Narrative: Derek is a 49-year-old male who presents to the emergency department today for evaluation of abscess to right shoulder blade. He first noticed noticed abscess 3 days ago due to pain. Thinks he may have developed due to itching at night leading to skin opening. His girlfriend has been attempting to drain it by picking off the scab, yesterday started draining yellowish fluid. Reports he has overall been feeling well, a little bit of generalized soreness. Denies associated fever/chills, change in appetite, change in bowel or bladder function. Has been keeping it covered, no warm soaks or other treatments. Denies history of IV drug use. Says that he has had multiple abscesses I&D in the past. Last antibiotics 1 year ago. Had history of diabetes, but this has resolved with weight loss. Seeking new primary care physician, last seen at [facility]. Related Data Home Medications ?Medication ?Instructions ?Recorded ?Confirmed blood sugar diagnostic (Blood #100 strips 09/21/17 06/26/25 Glucose Test strips) lancets #100 ea 09/21/17 06/26/25 apixaban 5 mg tablet (Eliquis) 1 tab PO BID 04/26/22 06/26/25 albuterol sulfate 90 mcg/actuation 2 puff inhalation Q6H PRN 06/29/22 06/26/25 aerosol inhaler methadone 10 mg/5 mL oral solution 10 mg PO DAILY 06/29/22 06/26/25 atorvastatin 20 mg tablet 20 mg PO QHS 01/09/23 06/26/25 clonidine HCl 0.1 mg tablet 0.1 mg PO QHS 01/09/23 06/26/25 lisinopril 10 mg tablet 10 mg PO DAILY 01/09/23 06/26/25 cholecalciferol (vitamin D3) 10 10 mcg PO DAILY 05/18/23 06/26/25 mcg (400 unit) capsule penicillin V potassium 500 mg 500 mg PO QID #39 tabs 08/02/23 06/26/25 tablet budesonide-formoterol HFA 80 1 puff inhalation ONCE 11/28/24 06/26/25 mcg-4.5 mcg/actuation aerosol inhaler (Symbicort) duloxetine 60 mg capsule,delayed 60 mg PO DAILY 11/28/24 06/26/25 release gabapentin 400 mg capsule 400 mg PO DAILY 11/28/24 06/26/25 losartan 50 mg tablet 50 mg PO DAILY 11/28/24 06/26/25 Previous Rx's ?Medication ?Instructions ?Recorded blood sugar diagnostic (Blood #100 strips 09/21/17 Glucose Test strips) lancets #100 ea 09/21/17 penicillin V potassium 500 mg 500 mg PO QID #39 tabs 08/02/23 tablet Allergies Allergy/AdvReac Type Severity Reaction Status Date / Time liraglutide (From Victoza) Allergy Unknown Other (See Verified 06/26/25 10:48 Comment) metformin Allergy Unknown Other (See Verified 06/26/25 10:48 Comment) adhesive tape Allergy Other (See Verified 06/26/25 10:48 Comment) amoxicillin Allergy Other (See Verified 06/26/25 10:48 Comment) rizatriptan benzoate (From Allergy Other (See Unverified 06/26/25 10:48 Maxalt) Comment) fentanyl AdvReac Mild doesn't Unverified 06/26/25 10:48 like how he feels General Stated Complaint: Cellulitis ANA PAULA: 3 Exam <Yu Mccullough Last Filed: 06/26/25 11:32> Narrative Exam Narrative: General Appearance: Well appearing. Vital signs: Within normal limits. Back, Musculoskeletal: Full painless range of motion to upper extremities. No color change or temperature change to extremities. Skin: 10 cm diameter erythema with central ulcerated lesion draining white/yellow pus. Lesion 1 cm in diameter located in center of abscess. Psychiatric: Normal. Course <Yu Mccullough Last Filed: 06/26/25 11:32> Vital Signs Vital signs: Vital Signs Temperature 37.3 C 06/26/25 09:54 Pulse 85 06/26/25 09:54 Respiratory Rate 18 06/26/25 09:54 Blood Pressure 137/84 06/26/25 09:54 Pulse Oximetry 97 06/26/25 09:54 Temperature 37.3 C 06/26/25 09:54 Pulse 85 06/26/25 09:54 Respiratory Rate 18 06/26/25 09:54 Blood Pressure 137/84 06/26/25 09:54 Pulse Oximetry 97 06/26/25 09:54 Oxygen Delivery Method Room Air 06/26/25 09:54 Oxygen Flow Rate 0 06/26/25 09:54 Procedure <Farooq Romero MD - Last Filed: 07/03/25 09:10> Abscess Drainage Provider that performed the procedure: Farooq Romero Medical Decision Making <Yu Mccullough - Last Filed: 06/26/25 11:32> Initial Assessment: 49-year-old male with history of MRSA and abscess to upper back. Developed current abscess 3 days ago. Reports sore spot, itching at night, and yellowish drainage. No fever, chills, or recent antibiotic use. History and presentation consistent with MRSA cellulitis with likely abscess that has already been drained. ED Course: - POCUS performed, no fluid collection noted. Final Assessment: Abscess on upper back with erythema and draining pus. No fluid collection on ultrasound. Warm soaks recommended. Possible I&D if pus pocket identified. Clinical Impression: - Abscess - MRSA Disposition: Discharge: Prescribed clindamycin, as patient is taking ARB. Reviewed discharge instructions with patient, including use of probiotics, warm soaks, importance of completion of antibiotics, and red flags indicate need for return to emergency care. He voices agreement with plan of care. Return if worsening or no improvement. Follow-Up: Establish care with new PCP. Patient Education: Warm soaks to facilitate drainage. Patient consented to the use of ROSA <Farooq Romero MD - Last Filed: 07/03/25 09:10> Date: 06/26/25 Time: 10:31 Note: Case was reviewed and discussed with CHADD Mccullough. I agree with treatment plan as documented and discussed. No focal fluid collection on POCUS. No indication for incision and drainage. Plan to initiate treatment with Bactrim for ruptured abscess/cellulitis of the right upper back. 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 current use of anticoagulant Adjustment disorder with depressed mood Hip pain Amnesia Orbital edema Acute effect of ultraviolet radiation on normal skin Acute pharyngitis Low back pain Pain in thoracic spine Dyspnea Abnormal weight loss H/O arteriosclerotic cardiovascular disease Headache Lumbosacral radiculopathy Steatosis of liver Developmental academic disorder History of pulmonary embolus (PE) Diastasis of muscle Acute folliculitis Chronic obstructive pulmonary disease Neck pain (02/14/18) Right pulmonary embolus (02/14/18) Generalized abdominal pain (02/14/18) Fatty liver disease, nonalcoholic (02/14/18) Drug abuse (02/14/18) Learning disability (02/14/18) Agitation (02/14/18) Personal history of other specified conditions Migraines Anemia Weight loss Fatigue Lumbar back pain with radiculopathy affecting lower extremity Bilateral hip pain Acute sore throat History of syncope Anticoagulation therapy continued upon discharge Fracture of orbital floor Sensitivity to light Traumatic brain injury Nightmares Sinus disorder Cellulitis Situational depression Shortness of breath Agitation Abdominal pain Elevated LFTs Boil Constipation Weakness Dysphagia Chest wall pain Rash Hypertension Pulmonary embolism on right Chronic neck pain Chronic back pain Diastasis recti Left inguinal hernia fat containing, on CT scan, non-symptomatic Episodic drug abuse DM (diabetes mellitus), type 2, uncontrolled Hyperlipidemia DVT (deep venous thrombosis) 09/07 Learning disability Chronic headaches Nonalcoholic fatty liver disease Surgical History History of facial surgery Family History (Updated 11/28/24 @ 08:49 by Ritika Galindo) Mother Diabetes Stroke Father Diabetes Sister Hypertension Social History (Updated 11/28/24 @ 08:46 by Ritika Galindo) Smoking/Tobacco Use Status: Current every day Tobacco Type: cigarettes Smoking risk assessment performed?: Yes Alcohol Intake: former Drug use: Occasionally Substance use type: marijuana Household members: children and other Details: grandchildren Housing: apartment Number of Children: 3 current occupation: Disabled What is your relationship status?: never Panel score (0-1 are the most socially isolated patients): 0 What type of physical activity do you participate in: walking and independent ambulation Frequency: daily Do you feel safe at home: Yes Do you feel safe in your relationship?: Yes POCUS Exam (ED) <Yu Mccullough - Last Filed: 06/26/25 11:32> Limited Soft Tissue Exam LOCATION OF EXAM: Upper back/right side REASON FOR EXAM: Abscess Exam Complete <Farooq Romero MD - Last Filed: 07/03/25 09:10> Limited Soft Tissue Exam DATE OF EXAM: 06/26/25 TIME OF EXAM: 10:30 PROVIDER THAT PERFORMED THE STUDY: Farooq Romero IS THIS A REPEAT EXAM DURING THIS ENCOUNTER: No LOCATION OF EXAM: Upper back/right side DIFFERENTIAL DIAGNOSES: no focal fluid collection , exam consistent with cellulitis
[2025-06-26] MEDS: Diph,Pertuss(Acell),Tet Vac/Pf 0.5 ML SYR IM (10:52)
[2025-06-26] MEDS: Acetaminophen 500 MG TAB 1000 MG PO (10:53)
[2025-06-26 11:01] VITALS: BP 132/72; PULSE 63; RESP 18; O2SAT 100
== END 2025-06-26 11:02 | disposition home or self-care (01) ==
LOC: ER 10:51
PROVIDERS: Emergency Provider Nurse Practitioner Family; PCP Family Medicine
DX: L03.312 Cellulitis of back [any part except buttock and flank] (principal); Z23 Encounter for immunization
CPT/HCPCS: 99283; 99284; 90471; 76604; 90715